=== PATIENT | male | born 1970 | race Caucasian/White ===

== ENCOUNTER → 2019-10-23 09:51 | Outpatient (BNVA) | payer OTHER, SELFPAY | PROVIDERS: Family Provider Emergency Medicine Emergency Medical Services; PCP Emergency Medicine Emergency Medical Services; Visit Provider Otolaryngology | DX: H69.83 Other specified disorders of Eustachian tube, bilateral (principal); H93.93 Unspecified disorder of ear, bilateral; H93.13 Tinnitus, bilateral; J34.2 Deviated nasal septum; J34.3 Hypertrophy of nasal turbinates | CPT/HCPCS: 96372; 99213; 99214; J3301 ==

== ENCOUNTER 2019-12-04 10:15 | Outpatient (CLI) | payer OTHER, SELFPAY ==
--- NOTE | 2019-12-04 10:43 | MR_ITS ---
WS: [id number] MRI BRAIN WITH HIGH-RESOLUTION IMAGING THROUGH THE INTERNAL AUDITORY CANALS WITHOUT AND WITH CONTRAST HISTORY: RIGHT EAR TINNITUS COMPARISON: None available. TECHNIQUE: Multiplanar, multisequence imaging is performed through the brain. Additional 3 mm imaging performed in multiple planes through the internal auditory canal. Postcontrast imaging with 17 ml's of Prohance. No acute intracranial hemorrhage, midline shift, edema or mass effect. No significant prior infarct or chronic white matter disease. No inferior displacement of cerebellar tonsils. No mass effect or abnormality at the cerebellopontine angle. Orbits and globes are negative. Ventricles and extra-axial spaces are normal. No inferior displacement of cerebellar tonsils. Clivus and pituitary gland are normal. Internal and external auditory canals: Unremarkable. Cranial nerves VII and VIII complexes: Unremarkable. No enhancement or mass. Cerebellopontine angles: Normal. Paranasal sinuses: Near complete fluid opacification of the RIGHT maxillary sinus. Mastoid air cells: Bilateral air cell effusions. Calvarium and scalp: Normal. Visualized [place] and dural venous sinuses demonstrate no abnormality. MR/MR iac's wo/w con* [id number] IMPRESSION: 1. Negative MRI internal auditory canals. No mass. 2. Mild, diffuse bilateral mastoid air cell effusions. 3. Near complete fluid opacification of the RIGHT maxillary sinus.
== END 2019-12-04 10:16 | disposition home or self-care (01) ==
LOC: RADWPI 10:21
PROVIDERS: Family Provider Emergency Medicine Emergency Medical Services; PCP Emergency Medicine Emergency Medical Services; Visit Provider Specialist
DX: H90.41 Sensorineural hearing loss, unilateral, right ear, with unrestricted hearing on the contralateral side (principal); H93.11 Tinnitus, right ear
CPT/HCPCS: 70553; A9579

== ENCOUNTER 2020-06-04 19:04 | Emergency (ER) | payer OTHER, SELFPAY ==
[2020-06-04 19:38] VITALS: BP 151/90; PULSE 86; RESP 22; TEMP 36.3; O2SAT 95; BMI 28.1
--- NOTE | 2020-06-04 20:01 | W.ED.ABDPA2 ---
HPI - Abdominal Pain General: Chief Complaint: Abdominal Pain Stated Complaint: lower abd pain Time Seen by Provider: 06/04/20 19:48 History of Present Illness: HPI narrative: 49-year-old male with left lower quadrant abdominal pain and vomiting. He said it started an hour or so after eating out at a restaurant. No diarrhea. No fever. He is not had pain like this before. No one else ate the food he ate. MD elicited complaint: abdominal pain Onset (ago): hour(s) Pain Consistency: constant Location: LLQ Severity: severe Quality: cramping and stabbing Radiation: none Migration to: no migration Exacerbating factors: movement Relieving factors: nothing Associated Symptoms: Reports nausea and vomiting; Denies chills, fever(s) and hematuria Review of Systems Const: Denies: fever(s) or chills ENMT: Denies: swelling of lips/tongue, epistaxis or sinus pain Card: Denies: chest pain, palpitations or irregular heart rhythm Resp: Denies: dyspnea, productive cough, non-productive cough or wheezing GI: Reports: nausea and vomiting : Denies: difficulty urinating or hematuria Musc: Denies: neck pain or back pain Skin/Breast: Denies: rash or erythema Neuro: Denies: headache(s), dizziness or vertigo Psych: Denies: anxiety PFSH ED PFSH: Family History Father Cancer Mother Cancer Social History Smoking and tobacco status: never smoked Alcohol intake: never Physical Exam Const: GENERAL APPEARANCE: well developed ORIENTATION/CONSCIOUSNESS: Yes oriented to person, Yes oriented to place and Yes oriented to time HENMT: COMMON NORMALS: normocephalic, external ears normal and Normal external nose present HEAD & SCALP: normocephalic FACE & SINUS: normal facial exam NOSE: Normal external nose present and No nasal discharge present EXTERNAL EAR: Yes external ears normal THROAT: posterior oropharynx normal; no peritonsillar mass Eye: COMMON NORMALS: Equal, round and reactive pupils present, EOMs intact bilaterally and conjunctivae normal EYELID: eyelids normal CONJUNCTIVA: Yes conjunctivae normal PUPIL: Yes Equal, round and reactive pupils present Neck/C-Spine: GENERAL: No tracheal deviation Chest: COMMONS NORMALS: normal inspection of the chest CHEST: No tenderness Resp: COMMON NORMALS: clear to auscultation bilaterally EFFORT & INSPECTION: No tachypneic, No respiratory distress, No retractions, No uses accessory muscles and No tracheal deviation AUSCULTATION: clear to auscultation bilaterally, no rhonchi, no wheezes and lung sounds not diminished Cardio: COMMON NORMALS: regular rate and regular rhythm RATE: regular rate RHYTHM: regular rhythm HEART SOUNDS: no murmurs PERIPHERAL PULSES: radial pulses present GI: INSPECTION: No abdominal distension AUSCULTATION: No Hyperactive bowel sounds present and No Hypoactive bowel sounds present PALPATION: Yes Tenderness to palpation present (GI) Details: LLQ, Yes Guarding due to palpation present (GI) and No Rigid due to palpation PERCUSSION: no dullness to percussion and no tympanic to percussion Neuro: SENSORIUM/ORIENTATION: Yes oriented to person, Yes oriented to place and Yes oriented to time Psych: COMMON NORMALS: mental status grossly normal Skin: COMMON NORMALS: no rashes or lesions noted GENERAL SKIN EXAM: no rashes or lesions noted Course Vital Signs: Vital signs: Vital Signs Temperature 97.4 F L 06/04/20 19:38 Pulse Rate 98 06/04/20 22:14 Respiratory Rate 18 06/04/20 22:14 Blood Pressure 157/99 06/04/20 22:14 Pulse Oximetry 99 06/04/20 22:14 MDM - Abdominal Pain MDM Narrative: Medical decision making narrative: 49-year-old male with left lower quadrant pain and vomiting. No fever. He has a mild leukocytosis. His bicarbonate level is 20. His creatinine is mildly elevated. He has been given IV fluids, pain medication, and antiemetics, as his vomiting was quite violent when he got here. He is feeling much improved following this. CT scan shows a 2 mm kidney stone, now in his bladder, with residual changes from the stone that was likely in his left ureter. With improvement in his symptoms, he will be allowed home. Lab Data: Attestation: I reviewed the patient's lab results. Labs: Lab Results 06/04/20 06/04/20 06/04/20 Range/Units 20:11 20:11 20:11 WBC 11.3 H (4.0-10.0) 10^3/ uL RBC 5.25 (4.1-5.3) 10^6/u L Hgb 15.7 (11.7-16.6) g/dL Hct 47.7 (42.0-52.0) % MCV 90.9 (80-94) fL MCH 29.9 (28.0-34.0) pg MCHC 32.9 (30.0-36.0) g/dL RDW 12.4 (12.1-15.1) % Plt Count 354 (130-400) 10^3/c mm MPV 10.0 (7.4-10.4) fL Neut % (Auto) 79.8 % Lymph % (Auto) 11.6 % [place] % (Auto) 7.4 % Eos % (Auto) 0.1 % Baso % (Auto) 0.5 % Neut # (Auto) 8.99 H (1.8-7.7) 10^3/u L Lymph # (Auto) 1.3 (0.8-4.8) 10^3/u L [place] # (Auto) 0.8 (0.2-0.9) 10^3/u L Eos # (Auto) 0.0 (0.0-0.8) 10^3/u L Baso # (Auto) 0.1 (0.0-0.1) 10^3/u L Nucleated RBC % (a uto) 0 % Nucleated RBCs # 0.0 /100WBC Sodium 139 (136-145) mmol/L Potassium 3.6 (3.5-5.1) mmol/L Chloride 103 (98-107) mmol/L Carbon Dioxide 20 L (22-29) mmol/L Anion Gap 19.6 H (5-19) BUN 12 (6-20) mg/dL Creatinine 1.4 H (0.7-1.2) mg/dL GFR Calculation 53.4 L (90-130) mL/min Glucose 152 H (65-115) mg/dL Calculated Osmolal ity 287 (285-295) mOsm/k g Lactate 3.4 H (0.5-2.2) mmol/L Calcium 9.1 (8.5-10.5) mg/dL Total Bilirubin 0.9 (0.15-1.2) mg/dL AST 16 (0-40) U/L ALT 13 (0-41) U/L Alkaline Phosphata se 92 (40-130) IU/L C-Reactive Protein 2.7 (0.0-4.9) mg/L Total Protein 7.6 (6.6-8.7) g/dL Albumin 4.7 (3.5-5.2) g/dL Globulin 2.9 (1.3-4.6) g/dL Lipase 18 (13-60) U/L Urine Color (Yellow) Urine Appearance (CLEAR) Urine pH (5-7) Ur Specific Gravit y (1.005-1.030) Urine Protein (Negative) Urine Glucose (UA) (Normal) Urine Ketones (Negative) Urine Blood (Negative) Urine Nitrate (Negative) Urine Bilirubin (NEGATIVE) Urine Urobilinogen (Negative) mg/dL Ur Leukocyte Carol ase (Negative) Urine RBC (0-2) /hpf Urine WBC (0-5) /hpf Ur Squamous Epith Cells (0-5) Amorphous Sediment Urine Bacteria (NONE) Hyaline Casts Urine Mucus 06/04/20 Range/Units 21:19 WBC (4.0-10.0) 10^3/ uL RBC (4.1-5.3) 10^6/u L Hgb (11.7-16.6) g/dL Hct (42.0-52.0) % MCV (80-94) fL MCH (28.0-34.0) pg MCHC (30.0-36.0) g/dL RDW (12.1-15.1) % Plt Count (130-400) 10^3/c mm MPV (7.4-10.4) fL Neut % (Auto) % Lymph % (Auto) % [place] % (Auto) % Eos % (Auto) % Baso % (Auto) % Neut # (Auto) (1.8-7.7) 10^3/u L Lymph # (Auto) (0.8-4.8) 10^3/u L [place] # (Auto) (0.2-0.9) 10^3/u L Eos # (Auto) (0.0-0.8) 10^3/u L Baso # (Auto) (0.0-0.1) 10^3/u L Nucleated RBC % (a uto) % Nucleated RBCs # /100WBC Sodium (136-145) mmol/L Potassium (3.5-5.1) mmol/L Chloride (98-107) mmol/L Carbon Dioxide (22-29) mmol/L Anion Gap (5-19) BUN (6-20) mg/dL Creatinine (0.7-1.2) mg/dL GFR Calculation (90-130) mL/min Glucose (65-115) mg/dL Calculated Osmolal ity (285-295) mOsm/k g Lactate (0.5-2.2) mmol/L Calcium (8.5-10.5) mg/dL Total Bilirubin (0.15-1.2) mg/dL AST (0-40) U/L ALT (0-41) U/L Alkaline Phosphata se (40-130) IU/L C-Reactive Protein (0.0-4.9) mg/L Total Protein (6.6-8.7) g/dL Albumin (3.5-5.2) g/dL Globulin (1.3-4.6) g/dL Lipase (13-60) U/L Urine Color Yellow (Yellow) Urine Appearance Clear (CLEAR) Urine pH 6.5 (5-7) Ur Specific Gravit y 1.005 (1.005-1.030) Urine Protein Trace (Negative) Urine Glucose (UA) Norm (Normal) Urine Ketones 1+ H (Negative) Urine Blood Trace H (Negative) Urine Nitrate Negative (Negative) Urine Bilirubin 1+ H (NEGATIVE) Urine Urobilinogen 4 H (Negative) mg/dL Ur Leukocyte Carol ase Negative (Negative) Urine RBC 0-4 H (0-2) /hpf Urine WBC 0-4 H (0-5) /hpf Ur Squamous Epith Cells 5-10 H (0-5) Amorphous Sediment Not Reportable Urine Bacteria t (NONE) Hyaline Casts 0-4 H Urine Mucus 3+ Discharge Plan Discharge Patient Disposition: Home Clinical Impression: Ureterolithiasis Condition: Stable Prescriptions: [place] 7.5-325 mg tablet 1 tab PO Q6H PRN (Reason: pain) Qty: 7 RF: 0 Zofran 4 mg tablet 4 mg PO Q6H PRN (Reason: nausea and vomiting) Qty: 7 RF: 0 No Action ibuprofen 800 mg tablet 800 mg PO DAILY PRNRF: 0 famotidine 20 mg tablet 40 mg PO DAILY RF: 0 cyclobenzaprine 10 mg tablet 10 mg PO ONCE PRN (Reason: muscle spasm) RF: 0 Discharge Orders: Discharge Order (Routine); Ordered 06/04/20 Ordered By: Adis Bauer Referrals: Yusef Young DO [Primary Care Provider] - Discharge Diet: Advance as tolerated Discharge Activity: Increase activity as tolerated Patient Instructions: Kidney Stones (ED), Renal Colic (ED) Activity Restrictions/Additional Instructions: You have passed your kidney stone in your bladder. Your symptoms will improve quickly. Return for fever, return of pain, vomiting liquids or medications, other concerning symptoms. Discharge Date/Time: 06/04/20 22:17 Coding Level of Care Code ED Risk Lead for Sebas Hancock
--- NOTE | 2020-06-04 20:03 | CTR_ITS ---
PROCEDURE INFORMATION: Exam: CT Abdomen And Pelvis With Contrast Exam date and time: 06/04/2020 8:10 PM Age: 49 years old Clinical indication: Abdominal pain; Generalized; Additional info: Llq abdominal pain TECHNIQUE: Imaging protocol: Computed tomography of the abdomen and pelvis with intravenous contrast. Radiation optimization: All CT scans at this facility use at least one of these dose optimization techniques: automated exposure control; mA and/or kV adjustment per patient size (includes targeted exams where dose is matched to clinical indication); or iterative reconstruction. Contrast material: OMNI 300; Contrast volume: 95 ml; Contrast route: INTRAVENOUS (IV); COMPARISON: No relevant prior studies available. RADIATION DOSE METRICS: Total DLP (mGy-cm): 896.21 FINDINGS: Liver: Rare tiny simple hepatic cysts. No visible hepatic mass. Gallbladder and bile ducts: Normal. No calcified stones. No ductal dilation. Pancreas: Normal. No ductal dilation. Spleen: Normal. No splenomegaly. Adrenals: Normal. No mass. Kidneys and ureters: Evidence of a recently passed left ureterovesical junction lithiasis now residing within the lumen of the bladder measuring under 2 mm. Mild left pelvicaliectasis and ureterectasis to the urinary bladder. No visible residual left ureterolithiasis. No visible residual nephrolithiasis left kidney. Right kidney unremarkable. Stomach and bowel: Diverticulosis coli primarily the sigmoid colon. No visible evidence for acute diverticulitis. Nonobstructive bowel pattern. No visible adynamic or reactive ileus. Small hiatal hernia. Third portion duodenal diverticulum measuring 40 mm. Rare small bowel diverticulum. Appendix: The appendix is visualized and appears noninflamed. Intraperitoneal space: Evidence of mild mesenteric lymphadenitis without panniculitis/mesenteritis. Vasculature: Unremarkable. No abdominal aortic aneurysm. Lymph nodes: Evidence of mild mesenteric lymphadenitis. Bladder: Tiny bladder stone from a recently passed left ureterovesical junction lithiasis. Reproductive: Evidence of a TUR of the prostate. Bones/joints: No visible evidence of active or acute osseous pathology. Soft tissues: Unremarkable. CT/CT abdomen pelvis w con* [id number] IMPRESSION: 1. Evidence of a recently passed left ureterovesical junction lithiasis now residing within the lumen of the bladder measuring under 2 mm. Mild left pelvicaliectasis and ureterectasis to the urinary bladder. No visible residual left ureterolithiasis. 2. Diverticulosis coli without evidence for diverticulitis. 3. Duodenal diverticulum. 4. Rare small bowel diverticulum. 5. Evidence of mild mesenteric lymphadenitis without panniculitis/mesenteritis. Radiation Dose CTDIVOL = (mGy): DLP = 896.21 (mGy-cm)
[2020-06-04] MEDS: sodium chloride 0.9% 1,000 ML 999 ML IV (20:13)
[2020-06-04 20:14] LABS: Basophils # 0.1 10^3/uL (0.0-0.1); Basophils % 0.5 %; Eosinophils % 0.1 %; Hematocrit 47.7 % (42.0-52.0); Hemoglobin 15.7 g/dL (11.7-16.6); Lymphocytes # 1.3 10^3/uL (0.8-4.8); Lymphocytes % 11.6 %; Mean Corpuscular HGB Conc 32.9 g/dL (30.0-36.0); Mean Corpuscular Hemoglobin 29.9 pg (28.0-34.0); Mean Corpuscular Volume 90.9 fL (80-94); Monocytes # 0.8 10^3/uL (0.2-0.9); Monocytes % 7.4 %; Neutrophils # 8.99 10^3/uL (1.8-7.7); Neutrophils % 79.8 %; Nucleated Red Blood Cells % 0 %; Platelet Count 354 10^3/cmm (130-400); Red Blood Count 5.25 10^6/uL (4.1-5.3); Red Cell Distribution Width 12.4 % (12.1-15.1); White Blood Count 11.3 10^3/uL (4.0-10.0)
[2020-06-04] MEDS: ondansetron 2 mg/ML SDV 2 mL 4 MG IVP (20:26)
[2020-06-04 20:29] VITALS: RESP 19; O2SAT 100
[2020-06-04] MEDS: HYDROmorphone 1 mg/mL INJ 1 mL IVP (20:29)
[2020-06-04] MEDS: haloperidol inj 5 mg/mL INJ 1 mL 3 MG IVP (20:32)
[2020-06-04 20:37] LABS: Alanine Aminotransferase 13 U/L (0-41); Albumin Level 4.7 g/dL (3.5-5.2); Alkaline Phosphatase 92 IU/L (40-130); Aspartate Amino Transferase 16 U/L (0-40); Blood Urea Nitrogen 12 mg/dL (6-20); C Reactive Protein 2.7 mg/L (0.0-4.9); Calcium 9.1 mg/dL (8.5-10.5); Carbon Dioxide 20 mmol/L (22-29); Chloride 103 mmol/L (98-107); Globulin 2.9 g/dL (1.3-4.6); Glomerular Filtration Rate 53.4 mL/min (90-130); Glucose 152 mg/dL (65-115); Lipase 18 U/L (13-60); Osmolality Calculated 287 mOsm/kg (285-295); Sodium 139 mmol/L (136-145); Total Bilirubin 0.9 mg/dL (0.15-1.2); Total Protein 7.6 g/dL (6.6-8.7)
[2020-06-04 20:38] LABS: Lactate (Lactic Acid level) 3.4 mmol/L (0.5-2.2)
[2020-06-04 20:45] LABS: Anion Gap 19.6 (5-19); Potassium 3.6 mmol/L (3.5-5.1)
[2020-06-04] MEDS: iohexol 300 mg/mL 100 mL Btl IV (20:49)
[2020-06-04 21:14] VITALS: BP 161/91; PULSE 96; RESP 18; O2SAT 99
[2020-06-04 21:49] LABS: Add Urine Microscopic? YES; Bilirubin Urine 1+ (NEGATIVE); Blood Urine Trace (Negative); Glucose Urine UA Norm (Normal); Ketones Urine 1+ (Negative); Leukocyte Esterase Urine Negative (Negative); Nitrate Urine Negative (Negative); Protein Urine Trace (Negative); Specific Gravity, Urine 1.005 (1.005-1.030); Urine Appearance Clear (CLEAR); Urine Color Yellow (Yellow); Urobilinogen Urine 4 mg/dL (Negative); pH Urine 6.5 (5-7)
[2020-06-04 21:57] LABS: Bacteria Urine t; RBC Urine 0-4 /hpf (0-2); WBC Urine 0-4 /hpf (0-5)
[2020-06-04 21:58] LABS: Add Urine Culture? No; Hyaline Casts Urine 0-4; Mucus Urine 3+
[2020-06-04 22:14] VITALS: BP 157/99; PULSE 98; RESP 18; O2SAT 99
== END 2020-06-04 22:17 | disposition home or self-care (01) ==
PROVIDERS: Emergency Provider Emergency Medicine; PCP Emergency Medicine Emergency Medical Services
DX: N20.1 Calculus of ureter (principal)
CPT/HCPCS: 12345; 74177; 80053; 81001; 83605; 83690; 85025; 86140; 96361; 96374; 96375; 99282; 99284; J1170; J1630; J2405; J7030; Q9967

== ENCOUNTER 2020-09-20 09:13 | Emergency (ER) | payer OTHER, SELFPAY ==
[2020-09-20 09:24] VITALS: BP 139/102; PULSE 78; RESP 16; TEMP 36.7; O2SAT 97; BMI 27.6
--- NOTE | 2020-09-20 09:35 | ED_ITS ---
HPI - Abdominal Pain General: Chief Complaint: Abdominal Pain Stated Complaint: ABD pain Time Seen by Provider: 09/20/20 09:30 History of Present Illness: HPI narrative: Patient urinated 5 times last night he said is unusual for him. He is having pain down above his bladder. No nausea vomiting MD elicited complaint: abdominal pain Pertinent past history: constipation and gastritis Onset (ago): hour(s) Pain Consistency: intermittent Location: Groin Severity: mild Quality: aching Radiation: none Migration to: no migration Exacerbating factors: nothing Relieving factors: nothing Associated Symptoms: Reports no associated symptoms; Denies chills, fever(s), nausea and vomiting Review of Systems Const: Denies: fever(s), chills or body aches Eyes: Denies: change in vision or blurry vision ENMT: Denies: throat pain or nasal congestion Card: Denies: chest pain or dyspnea on exertion Resp: Denies: dyspnea, productive cough or non-productive cough GI: Reports: abdominal pain; Denies: nausea or vomiting : Reports: urinary frequency and urinary urgency; Denies: difficulty urinating Musc: Denies: extremity pain Skin/Breast: Denies: rash Neuro: Denies: headache(s) Psych: Denies: anxiety or depression Parmjit/Lymph: Denies: easy bruising PFSH ED PFSH: Family History Father Cancer Mother Cancer Social History Smoking and tobacco status: never smoked Alcohol intake: never Physical Exam Const: COMMON NORMALS: no acute distress, average body habitus and patient oriented x3 HENMT: COMMON NORMALS: normocephalic HEAD & SCALP: normal to inspection and normocephalic FACE & SINUS: normal facial exam Eye: COMMON NORMALS: conjunctivae normal GENERAL EYE: appearance normal, both eyes and all related structures CONJUNCTIVA: Yes conjunctivae normal Neck/C-Spine: COMMON NORMALS: no JVD Chest: COMMONS NORMALS: normal inspection of the chest Resp: COMMON NORMALS: normal respiratory effort and clear to auscultation bilaterally AUSCULTATION: clear to auscultation bilaterally Cardio: COMMON NORMALS: no JVD, regular rate and regular rhythm RATE: regular rate RHYTHM: regular rhythm GI: COMMON NORMALS: Normal to inspection, nondistended, normoactive bowel sounds present PALPATION: Yes Tenderness to palpation present (GI) Details: other (Above bladder) Extremity: COMMON NORMALS: normal to inspection and full ROM Neuro: COMMON NORMALS: patient oriented x3 Course Vital Signs: Vital signs: Vital Signs Temperature 98.0 F 09/20/20 09:24 Pulse Rate 78 09/20/20 09:24 Respiratory Rate 16 09/20/20 09:24 Blood Pressure 139/102 09/20/20 09:24 Pulse Oximetry 97 09/20/20 09:24 Discharge Plan Discharge Prescriptions: No Action ibuprofen 800 mg tablet 800 mg PO DAILY PRNRF: 0 famotidine 20 mg tablet 40 mg PO DAILY RF: 0 cyclobenzaprine 10 mg tablet 10 mg PO ONCE PRN (Reason: muscle spasm) RF: 0 [place] 7.5-325 mg tablet 1 tab PO Q6H PRN (Reason: pain) Qty: 7 RF: 0 Zofran 4 mg tablet 4 mg PO Q6H PRN (Reason: nausea and vomiting) Qty: 7 RF: 0 Coding Level of Care Code ED Inclusion Specialist for Chg Karissa
--- NOTE | 2020-09-20 10:04 | XR_ITS ---
WS: [id number] ABDOMEN: SUPINE FILM HISTORY: lower abd pain COMPARISON: 06/04/2020 Normal bowel gas pattern. Right kidney: No renal or ureteral stone identified. Left kidney: No renal or ureteral stone identified. XR/XR KUB portable [id number] IMPRESSION: No renal or ureteral calcifications identified.
[2020-09-20 10:21] LABS: Add Urine Microscopic? NO
[2020-09-20 10:28] LABS: Urine Appearance Clear (CLEAR); Urine Color Yellow (Yellow)
[2020-09-20 10:29] LABS: Bilirubin Urine Neg (Negative); Blood Urine Neg (Negative); Glucose Urine UA Norm (Normal); Ketones Urine Negative (Negative); Leukocyte Esterase Urine Negative (Negative); Nitrate Urine Negative (Negative); Protein Urine Neg (Negative); Specific Gravity, Urine 1.005 (1.005-1.030); Urobilinogen Urine Norm (Negative); pH Urine 6.5 (5-7)
[2020-09-20 10:40] LABS: Basophils % 0.3 %; Eosinophils % 0.4 %; Hematocrit 47.5 % (42.0-52.0); Hemoglobin 16.4 g/dL (11.7-16.6); Lymphocytes # 1.1 10^3/uL (0.8-4.8); Lymphocytes % 9.7 %; Mean Corpuscular HGB Conc 34.5 g/dL (30.0-36.0); Mean Corpuscular Hemoglobin 30.9 pg (28.0-34.0); Mean Corpuscular Volume 89.5 fL (80-94); Mean Platelet Volume 9.8 fL (7.4-10.4); Monocytes % 9.4 %; Neutrophils # 8.65 10^3/uL (1.8-7.7); Neutrophils % 79.9 %; Nucleated Red Blood Cells % 0 %; Platelet Count 300 10^3/cmm (130-400); Red Blood Count 5.31 10^6/uL (4.1-5.3); Red Cell Distribution Width 12.1 % (12.1-15.1); White Blood Count 10.8 10^3/uL (4.0-10.0)
[2020-09-20 10:56] LABS: Alanine Aminotransferase 18 U/L (0-41); Albumin Level 4.1 g/dL (3.5-5.2); Alkaline Phosphatase 128 IU/L (40-130); Anion Gap 14.1 (5-19); Aspartate Amino Transferase 16 U/L (0-40); Blood Urea Nitrogen 10 mg/dL (6-20); Calcium 9.5 mg/dL (8.5-10.5); Carbon Dioxide 25 mmol/L (22-29); Chloride 103 mmol/L (98-107); Globulin 2.8 g/dL (1.3-4.6); Glomerular Filtration Rate 70.3 mL/min (90-130); Glucose 95 mg/dL (65-115); Lipase 19 U/L (13-60); Osmolality Calculated 285 mOsm/kg (285-295); Potassium 4.1 mmol/L (3.5-5.1); Sodium 138 mmol/L (136-145); Total Protein 6.9 g/dL (6.6-8.7)
[2020-09-20 11:21] VITALS: BP 122/92; PULSE 60; RESP 18; O2SAT 96
== END 2020-09-20 11:22 | disposition home or self-care (01) ==
PROVIDERS: Emergency Provider Nurse Practitioner Family; PCP Emergency Medicine Emergency Medical Services
DX: R10.9 Unspecified abdominal pain (principal)
CPT/HCPCS: 12345; 74018; 80053; 81003; 83690; 85025; 99283

== ENCOUNTER → 2020-12-10 11:18 | Outpatient (BNVA) | payer OTHER, SELFPAY | PROVIDERS: PCP Emergency Medicine Emergency Medical Services; Visit Provider Surgery | DX: K59.00 Constipation, unspecified (principal) | CPT/HCPCS: 87635 ==

== ENCOUNTER 2020-12-15 07:20 | Day surgery (SDC) | payer OTHER, SELFPAY ==
[2020-12-13 14:21] VITALS: BMI 27.6
--- NOTE | 2020-12-15 07:29 | ANES.PREANE2 ---
Pre-Anesthetic Assessment Pre-Anesthetic Assessment: Height/Weight: Height 1.73 m Weight 82.554 kg Preop Diagnosis: Constipation Proposed Procedure: Operation Date: 12/15/20 08:30 Proposed Procedures p Colonoscopy 77441 K59.00(Not Applicable) - Ziyad Leach MD Familial anesthetic complications: None Was Beta Norman taken within 24 hours: N/A Last intake: NPO > 8 hrs Social: Social History: No alcohol and No tobacco Exam: Pre-Anes Outpt Exam: alert, oriented x 3, clear to auscultation bilaterally and regular rate & rhythm Airway: Cervical ROM: WNL MP: 2 Dentition: Full GI: GI: GERD Musc/skel: Musc/skel: Lower Back Pain Anesthetic Plan: ASA status: 1 Anesthesia: MAC Risk of > 500 ml blood loss (7ml/kg in children): No PFSH Anesthesia PFSH: Family History Father Cancer Mother Cancer Social History Smoking and tobacco status: never smoked Alcohol intake: never Data Anesthesia Cardiac Studies: No Data to Display
[2020-12-15 08:06] VITALS: BP 143/98; PULSE 70; RESP 18; TEMP 36.6; O2SAT 100
--- NOTE | 2020-12-15 08:07 | W.PM.OPSUD ---
Surgery/Procedure H&P Update DATE OF PROCEDURE: December 15, 2020 DATE H&P PERFORMED: 11/17/20 H&P UPDATE INFORMATION: I have reviewed H&P completed within last 30 days, I have examined patient prior to procedure and No changes to prior documentation PREOP DIAGNOSIS: Screening colonoscopy PRIMARY INDICATION FOR PROCEDURE: The same PLANNED PROCEDURE: Operation Date: 12/15/20 08:30 Proposed Procedures p Colonoscopy 31896 K59.00(Not Applicable) - Ziyad Leach MD
[2020-12-15] MEDS: sodium chloride 0.9% 1,000 ML 30 ML IV (08:18)
[2020-12-15 08:51] VITALS: BP 131/93; PULSE 95; RESP 16; TEMP 36.3; O2SAT 96
--- NOTE | 2020-12-15 08:55 | ANE.PACU2 ---
Inpatient post-anesthesia follow up: Airway intact: Yes Vital signs: Temperature 98 F Pulse Rate 70 Respiratory Rate 18 Blood Pressure 143/98 Pulse Oximetry 100 Oxygen Delivery Me thod Room Air Oxygen Flow Rate Fraction of Inspir ed Oxygen Hydration adequate: Yes Nausea and vomiting: No Pain level: 1 Mental status: Baseline
[2020-12-15 09:10] VITALS: BP 130/94; PULSE 75; RESP 16; O2SAT 97
--- NOTE | 2020-12-15 13:30 | ANE.PACU2 ---
Inpatient post-anesthesia follow up: Airway intact: Yes Vital signs: Temperature 97.3 F Pulse Rate 75 Respiratory Rate 16 Blood Pressure 130/94 Pulse Oximetry 97 Oxygen Delivery Me thod Room Air Oxygen Flow Rate Fraction of Inspir ed Oxygen Hydration adequate: Yes Nausea and vomiting: No Pain level: 1 Mental status: Baseline
== END 2020-12-15 09:25 | disposition home or self-care (01) ==
PROVIDERS: PCP Emergency Medicine Emergency Medical Services; Visit Provider Surgery
PROC: 0DJD8ZZ Inspection of Lower Intestinal Tract, Via Natural or Artificial Opening Endoscopic (ICD-10-PCS; CPT 45378; principal; 2020-12-15 08:30)
DX: Z12.11 Encounter for screening for malignant neoplasm of colon (principal); K63.5 Polyp of colon; K21.9 Gastro-esophageal reflux disease without esophagitis
CPT/HCPCS: 45385; 88305; 96360; J2704; J7030

== ENCOUNTER → 2021-01-13 10:35 | Outpatient (BNVA) | payer OTHER, SELFPAY | PROVIDERS: PCP Emergency Medicine Emergency Medical Services; Visit Provider Surgery | DX: K42.9 Umbilical hernia without obstruction or gangrene (principal) | CPT/HCPCS: 87635 ==

== ENCOUNTER 2021-01-18 06:20 | Day surgery (SDC) | payer OTHER, SELFPAY ==
[2021-01-17 10:56] VITALS: BMI 27.6
[2021-01-18] VITALS (9 sets, daily range): BP systolic 130–156; BP diastolic 83–101; PULSE 69–78; RESP 10–19; TEMP 36.2–37.1; O2SAT 92–99
[2021-01-18] MEDS: acetaminophen 1,000 MG/100 ML PIGGYBACK 400 MG IV (07:00)
[2021-01-18] MEDS: sodium chloride 0.9% 1,000 ML 30 ML IV (07:00)
--- NOTE | 2021-01-18 07:29 | ANES.PREANE2 ---
Pre-Anesthetic Assessment Pre-Anesthetic Assessment: Height/Weight: Height 1.73 m Weight 82.554 kg Temp Pulse Resp BP Pulse Ox 98.7 F 74 18 147/92 97 01/18/21 07:22 01/18/21 07:22 01/18/21 07:22 01/18/21 07:22 01/18/21 07:22 Preop Diagnosis: Umbilical hernia Proposed Procedure: Operation Date: 01/18/21 07:55 Proposed Procedures p Umbilical Hernia Repair w/ Mesh 46893 K42.9(Not Applicable) - Ziyad Leach MD Familial anesthetic complications: none Was Beta Norman taken within 24 hours: N/A Was Clonidine taken within 24 hours: N/A Last intake: Intake Last Liquid Date 01/17/21 Last Liquid Time 21:00 Last Solid Date 01/17/21 Last Solid Time 21:00 Social: Social History: No alcohol and No tobacco Exam: Pre-Anes Outpt Exam: alert, oriented x 3, clear to auscultation bilaterally and regular rate & rhythm Airway: Cervical ROM: WNL MP: 2 Dentition: Full GI: GI: GERD Anesthetic Plan: ASA status: 2 Anesthesia: General Risk of > 500 ml blood loss (7ml/kg in children): No Meds/Allergies Current Medications: Current Medications Generic Name Dose Route Start Last Admin Trade Name Freq PRN Reason Stop Dose Admin Sodium Chloride 1,000 mls @ 30 ml s/hr 01/18/21 07:00 01/18/21 07:00 Sodium Chloride 0.9% IV 01/19/21 06:59 30 mls/hr .Q24H HUBER Administration PFSH Anesthesia PFSH: Medical History Colon polyp Constipation Family History Father Cancer Mother Cancer Social History Smoking and tobacco status: never smoked Alcohol intake: never Data Anesthesia Cardiac Studies: No Data to Display
--- NOTE | 2021-01-18 08:07 | W.PM.OPSUD ---
Surgery/Procedure H&P Update DATE OF PROCEDURE: January 18, 2021 DATE H&P PERFORMED: 01/06/21 H&P UPDATE INFORMATION: I have reviewed H&P completed within last 30 days, I have examined patient prior to procedure and No changes to prior documentation PREOP DIAGNOSIS: Umbilical hernia PRIMARY INDICATION FOR PROCEDURE: THE SAME PLANNED PROCEDURE: Operation Date: 01/18/21 07:55 Proposed Procedures p Umbilical Hernia Repair w/ Mesh 39965 K42.9(Not Applicable) - Ziayd Leach MD
--- NOTE | 2021-01-18 09:09 | SUR.OPER ---
LATE TO ROOM DUE TO CLEANED ROOM, SET UP ANESTHESIA EQUIPMENT, TOOK SPECIMEN
--- NOTE | 2021-01-18 09:59 | PM.OP ---
Operative Report Date of procedure: January 18, 2021 Pre-op Diagnosis: Umbilical hernia Post-op diagnosis: same Post-op Diagnosis: UMBLICAL HERNIA Post-op Findings: Fascial defect about 2 inches in diameter Procedure Done: Open umbilical hernia repair with Polypropylene mesh placement Onlay technique Implants: Polypropylene mesh onlay technique Specimens removed/disposition: Hernial sac and contents Surgeon: Ziyad Leach Contact Printer Dry Film: Surgical techBety Cole and medical student Celia Circulating nurse Mireya Anesthesia: General (GETA TRAILER BODY ASSEMBLER Lili) Estimated blood loss (mL): 10 Complications: No immediate complications Condition: stable Disposition: same day Brief History: This is a pleasant 51 years old gentleman with symptomatic periumbilical hernia.Full H&P per chart and informed consent Procedure: Patient was identified in holding area and the site of the hernia was marked by me ,Patient was brought then to the operating room, general endotracheal anesthesia was administered by the anesthesia provider.prophylactic IV antibiotics were given per protocol Time-out was done verifying the patient's name/date of /planned procedure and destination after the procedure, all were in agreement.SCDs confirmed to be functioning, preoperative antibiotics administered per protocol, and beta trixie protocol was confirmed. Prep and drape of the abdomen was done under the usual sterile technique. I started by infra-aumbilical skin incision, I was able to identify the chronically incarcerated umbilical hernia, dissection was carried all the way down to the fascia, hernia sac was then opened and the sac was excised in addition to excess omental tissues.Tissues excised sent for permanent pathology.Viable bowel were appreciated. I was able to free the overlying fat on top of the fascia, facilitate primary closure At that point the fascial defect was about 2 inches in diameter, after freeing all the adhesions, under direct visualization I was able to use #1 PDS to repair the defect primarily, as an interrupted horizontal mattress sutures, thorough irrigation of the wound was then achieved and hemostasis. Followed by interrupted PDS sutures [place] and thorough irrigation was achieved Followed by appropriate hemostasis. Onlay polypropylene mesh was placed and stitched to underlying fascia using 2-0 silk sutures in an interrupted fashion 2-0 Vicryl was used for closure followed by deep dermal interrupted stitches, followed by 3-0 Vicryl, then 4-0 Monocryl was used for subcuticular closure of the skin incision. Lidocaine 2% was used for local infiltration to help postoperative pain Surgical glue was then applied Counts of sponges, [place] and instruments were completed at the end of the procedure. Patient tolerated the procedure well and was taken to the recovery area in stable condition I was present for the whole entire procedure
[2021-01-18] MEDS: lidocaine 2% INJ 20 mL INJECTION (10:02)
[2021-01-18] MEDS: ondansetron 2 mg/ML SDV 2 mL 4 MG IVP ×2 (10:38→10:43)
[2021-01-18] MEDS: HYDROcodone-acetaminophen 5-325 mg Tablet 1 TAB PO (11:26)
--- NOTE | 2021-01-18 12:23 | ANE.PACU2 ---
Inpatient post-anesthesia follow up: Airway intact: Yes Vital signs: Temperature 97.8 F Pulse Rate 78 Respiratory Rate 18 Blood Pressure 147/83 Pulse Oximetry 96 Oxygen Delivery Me thod Room Air Oxygen Flow Rate 8 Fraction of Inspir ed Oxygen Hydration adequate: Yes Nausea and vomiting: No Pain level: 2 Mental status: Baseline
== END 2021-01-18 11:46 | disposition home or self-care (01) ==
PROVIDERS: PCP Emergency Medicine Emergency Medical Services; Visit Provider Surgery
PROC: (CPT 49585; principal; 2021-01-18 07:45)
DX: K42.9 Umbilical hernia without obstruction or gangrene (principal); K21.9 Gastro-esophageal reflux disease without esophagitis
CPT/HCPCS: 49585; 88302; 96365; J0690; J1100; J2250; J2405; J2704; J2710; J3010; J3490; J7030

== ENCOUNTER 2021-02-07 20:00 | Outpatient (CLI) | payer OTHER, SELFPAY | END 2021-02-07 20:01 | disposition home or self-care (01) | LOC: SLEEP 02-08 09:36 | PROVIDERS: PCP Emergency Medicine Emergency Medical Services; Visit Provider Emergency Medicine Emergency Medical Services | DX: G47.30 Sleep apnea, unspecified (principal) | CPT/HCPCS: 95810 ==

== ENCOUNTER 2021-02-15 10:09 | Inpatient (IN) | payer OTHER, SELFPAY ==
[2021-02-15] VITALS (7 sets, daily range): BP systolic 129–144; BP diastolic 76–88; PULSE 60–81; RESP 15–20; TEMP 36.9–37.4; O2SAT 94–98; BMI 27.5
--- NOTE | 2021-02-15 10:37 | CT_ITS ---
WS: [id number] CT ABDOMEN PELVIS TECHNIQUE: Contrast-enhanced CT of the abdomen and pelvis with coronal and sagittal reformatted image s. CLINICAL INFORMATION: abd pain COMPARISON: January 19, 2021 DLP: 1629.[address] scans at [facility] use at least one of these dose optimization techniques: automat ed exposure control; mA and/or kV adjustment per patient size (includes targeted exams where dose is matched to clinical indication); or iterative reconstruction. FINDINGS: Inflammatory stranding and edema involving the sigmoid colon consistent with acute diverticulitis. Th is is new since the recent CT February 08, 2021. Small diverticular abscess with peripheral enhancement measuring 1.6 x 1.2 x 1.6 CM. Recent appearing fat-containing umbilical hernia repair with postoperative changes involving the vent ral abdominal wall subcutaneous soft tissues. Low-attenuation postoperative fluid collection likely p ostoperative seroma measuring 7.8 x 2.3 x 4.1 cm this is slightly smaller compared to the recent CT A pril 2020. No herniated bowel. Lung bases are well aerated. A few small hepatic cyst. Normal gallbladder. Normal portal vein and spl enic vein. Normal spleen. Mild fatty atrophy of the pancreas. Normal GE junction. Small esophageal hi atal hernia. Intraluminal duodenal lipoma second portion duodenum unchanged from the prior studies. D uodenal diverticulum involving the third portion the duodenum measuring 3.5 CM. This is unchanged fro m the prior studies. Adrenal glands are normal. Normal renal parenchymal enhancement. No hydronephrosis. Normal caliber abdominal aorta. Prostate calcification with prior TURP. No abdomin al or pelvic lymphadenopathy. No inguinal lymphadenopathy. Small fat-containing inguinal hernias. CT/CT abdomen pelvis w con* [id number] IMPRESSION: 1. Acute diverticulitis with a small diverticular abscess measuring 1.6 x 1.2 x 1.6 CM. This is too small for percutaneous drainage. Diverticulitis is new si nce February 08, 2021. 2. Recent postoperative changes umbilical hernia repair with low-attenuation c ollection, likely seroma, measuring 7.8 x 2.3 x 4.1cm slightly smaller compared to February 08, 2021. 3. No other significant changes Notified Dinesh Emmanuel DO at 02/15/2021 11:33 AM.
--- NOTE | 2021-02-15 10:46 | W.ED.ABDPA2 ---
HPI - Abdominal Pain General: Chief Complaint: Abdominal Pain Stated Complaint: LOW AB PAIN, EXCESSIVE URINATION, WEAKNESS Time Seen by Provider: 02/15/21 10:15 History of Present Illness: HPI narrative: 50-year-old male presents emergency room with abdominal pain and diarrhea. He was seen by Dr. Ramirez recently and had a follow-up for some swelling around the umbilical hernia surgical site. [facility] showed a seroma in the area of the incision and umbilical hernia repair per the notes from Dr. Leach. He denies any fever sweats or chills. He denies any edition urinary urgency or frequency no hematuria. Patient had a colonoscopy on December 15 of this year at that time there were polyps removed but in reviewing the report there is no comment on any diverticulosis. MD elicited complaint: abdominal pain Onset (ago): day(s) Pain Consistency: constant Location: Suprapubic Severity: mild Quality: cramping Radiation: none Migration to: no migration Exacerbating factors: nothing Relieving factors: nothing Associated Symptoms: Denies anorexia, belching, bloating, change in bowel habits, change in stool character, chills, coffee ground emesis, constipation, GI cramping, diarrhea, dyspepsia, dysuria, excessive flatus, fever(s), heartburn, hematochezia, hematuria, hematemesis, fecal incontinence, loose stools, melena, nausea, poor appetite, syncope and vomiting Review of Systems Const: Denies: fever(s) or chills ENMT: Denies: throat pain, ear or mastoid pain, nasal discharge or nasal congestion Card: Denies: syncope Resp: Denies: dyspnea, productive cough or non-productive cough GI: Denies: nausea, vomiting, hematemesis, coffee ground emesis, heartburn, diarrhea, constipation, bloating, GI cramping, belching, excessive flatus, fecal incontinence, change in bowel habits, change in stool character, hematochezia or melena : Denies: dysuria or hematuria Skin/Breast: Denies: rash or pruritus PFSH ED PFSH: Medical History Colon polyp Constipation Umbilical hernia Family History Father Cancer Mother Cancer Social History Smoking and tobacco status: never smoked Alcohol intake: never Physical Exam Const: COMMON NORMALS: no acute distress GENERAL APPEARANCE: cooperative and comfortable ORIENTATION/CONSCIOUSNESS: Yes awake, Yes oriented to person, Yes oriented to place and Yes oriented to time HENMT: COMMON NORMALS: normocephalic, atraumatic and hearing grossly normal bilaterally HEAD & SCALP: normocephalic and atraumatic Neck/C-Spine: COMMON NORMALS: no JVD Resp: COMMON NORMALS: normal respiratory effort, No retractions, No use of accessory muscles and clear to auscultation bilaterally AUSCULTATION: clear to auscultation bilaterally Cardio: COMMON NORMALS: no JVD, regular rate, regular rhythm and No murmurs present (Cardio) RATE: regular rate RHYTHM: regular rhythm GI: COMMON NORMALS: Soft to palpation and No hepatosplenomegaly present AUSCULTATION: Yes normoactive bowel sounds PALPATION: Yes Soft to palpation, No Tenderness to palpation present (GI), No Guarding due to palpation present (GI) and Yes No hepatosplenomegaly present OTHER: Recent infraumbilical incision semilunar in shape is fullness to palpation consistent with the seroma Dr. Leach noted in his office notes there is no drainage is no erythema no induration no sign of infection Extremity: COMMON NORMALS: normal to inspection, capillary refill normal, no clubbing, cyanosis or edema, no calf tenderness and no pedal edema Neuro: SENSORIUM/ORIENTATION: Yes oriented to person, Yes oriented to place and Yes oriented to time Skin: COMMON NORMALS: no rashes or lesions noted GENERAL SKIN EXAM: no rashes or lesions noted Course Vital Signs: Vital signs: Vital Signs Temperature 98.4 F 02/15/21 10:16 Pulse Rate 81 02/15/21 11:16 Respiratory Rate 16 02/15/21 11:16 Blood Pressure 135/87 02/15/21 11:16 Pulse Oximetry 94 02/15/21 11:16 MDM - Abdominal Pain MDM Narrative: Medical decision making narrative: Discussed with Dr. Ramirez will admit he asked that we add Flagyl to Zosyn that we had already given. Keep patient on sips and chips and IV fluids. Admit to his services. Lab Data: Labs: Lab Results 02/15/21 02/15/21 02/15/21 Range/Units 10:32 10:32 11:35 WBC 8.7 (4.0-10.0) 10^3/ uL RBC 4.80 (4.1-5.3) 10^6/u L Hgb 14.3 (11.7-16.6) g/dL Hct 43.0 (42.0-52.0) % MCV 89.6 (80-94) fL MCH 29.8 (28.0-34.0) pg MCHC 33.3 (30.0-36.0) g/dL RDW 11.9 L (12.1-15.1) % Plt Count 291 (130-400) 10^3/c mm MPV 9.5 (7.4-10.4) fL Neut % (Auto) 77.1 % Lymph % (Auto) 11.9 % [place] % (Auto) 8.4 % Eos % (Auto) 1.8 % Baso % (Auto) 0.6 % Neut # (Auto) 6.68 (1.8-7.7) 10^3/u L Lymph # (Auto) 1.0 (0.8-4.8) 10^3/u L [place] # (Auto) 0.7 (0.2-0.9) 10^3/u L Eos # (Auto) 0.2 (0.0-0.8) 10^3/u L Baso # (Auto) 0.1 (0.0-0.1) 10^3/u L Nucleated RBC % (a uto) 0 % Nucleated RBCs # 0.0 /100WBC Sodium 140 (136-145) mmol/L Potassium 3.9 (3.5-5.1) mmol/L Chloride 105 (98-107) mmol/L Carbon Dioxide 25 (22-29) mmol/L Anion Gap 13.9 (5-19) BUN 12 (6-20) mg/dL Creatinine 1.0 (0.7-1.2) mg/dL GFR Calculation 78.5 L (90-130) mL/min Glucose 87 (65-115) mg/dL Calculated Osmolal ity 289 (285-295) mOsm/k g Calcium 8.7 (8.5-10.5) mg/dL Total Bilirubin 0.8 (0.15-1.2) mg/dL AST 10 (0-40) U/L ALT 10 (0-41) U/L Alkaline Phosphata se 157 H (40-130) IU/L Total Protein 6.6 (6.6-8.7) g/dL Albumin 3.9 (3.5-5.2) g/dL Globulin 2.7 (1.3-4.6) g/dL Urine Color Yellow (Yellow) Urine Appearance Clear (CLEAR) Urine pH 6.5 (5-7) Ur Specific Gravit y 1.010 (1.005-1.030) Urine Protein Neg (Negative) Urine Glucose (UA) Norm (Normal) Urine Ketones Negative (Negative) Urine Blood Neg (Negative) Urine Nitrate Negative (Negative) Urine Bilirubin Neg (Negative) Urine Urobilinogen Norm (Negative) mg/dL Ur Leukocyte Carol ase Negative (Negative) Discharge Plan Discharge Patient Disposition: Placed in Observation Clinical Impression: Diverticulitis, Diverticular disease of intestine with perforation and abscess Coding Level of Care Code ED Anesthesiology Fellow for [facility] Exam Comprehensive
[2021-02-15 10:51] LABS: Basophils # 0.1 10^3/uL (0.0-0.1); Basophils % 0.6 %; Eosinophils # 0.2 10^3/uL (0.0-0.8); Eosinophils % 1.8 %; Hemoglobin 14.3 g/dL (11.7-16.6); Lymphocytes % 11.9 %; Mean Corpuscular HGB Conc 33.3 g/dL (30.0-36.0); Mean Corpuscular Hemoglobin 29.8 pg (28.0-34.0); Mean Corpuscular Volume 89.6 fL (80-94); Mean Platelet Volume 9.5 fL (7.4-10.4); Monocytes # 0.7 10^3/uL (0.2-0.9); Monocytes % 8.4 %; Neutrophils # 6.68 10^3/uL (1.8-7.7); Neutrophils % 77.1 %; Nucleated Red Blood Cells % 0 %; Platelet Count 291 10^3/cmm (130-400); Red Cell Distribution Width 11.9 % (12.1-15.1); White Blood Count 8.7 10^3/uL (4.0-10.0)
[2021-02-15] MEDS: iohexol 300 mg/mL 100 mL Btl IV (10:56)
--- NOTE | 2021-02-15 10:59 | PC.NURSE ---
Report given to ENA Head. Pt in CT during report. Pt was given urinal for UA.
[2021-02-15 11:07] LABS: Alanine Aminotransferase 10 U/L (0-41); Albumin Level 3.9 g/dL (3.5-5.2); Alkaline Phosphatase 157 IU/L (40-130); Anion Gap 13.9 (5-19); Aspartate Amino Transferase 10 U/L (0-40); Blood Urea Nitrogen 12 mg/dL (6-20); Calcium 8.7 mg/dL (8.5-10.5); Carbon Dioxide 25 mmol/L (22-29); Chloride 105 mmol/L (98-107); Globulin 2.7 g/dL (1.3-4.6); Glomerular Filtration Rate 78.5 mL/min (90-130); Glucose 87 mg/dL (65-115); Osmolality Calculated 289 mOsm/kg (285-295); Potassium 3.9 mmol/L (3.5-5.1); Sodium 140 mmol/L (136-145); Total Bilirubin 0.8 mg/dL (0.15-1.2); Total Protein 6.6 g/dL (6.6-8.7)
--- NOTE | 2021-02-15 11:08 | PC.PHAR ---
pt states he takes care of his own medications-[facility],calcium pilycarbophil 625mg 1250mg po daily,zyrtec 10mg po daily prn,guaifensen 100mg/ml 10ml po qid prn,colace 100mg po tid prn,flonase 2 sprays daily prn,hydrocortisone 2.5% cream tid prn,crestor 40mg take 20mg po qpm and sildenafil 100mg take 50mg prn-pt states he has these medications but hasnt started taking them-[facility] pt states he only takes one tab qpm
[2021-02-15 11:51] LABS: Add Urine Microscopic? NO; Charge for UA Resulting for Rev
[2021-02-15] MEDS: piperacillin-tazobactam 3.375 GM in sodium chloride 0.9% (plus) 50 ML IV ×2 (11:52→20:25)
[2021-02-15 11:57] LABS: Bilirubin Urine Neg (Negative); Blood Urine Neg (Negative); Glucose Urine UA Norm (Normal); Ketones Urine Negative (Negative); Leukocyte Esterase Urine Negative (Negative); Nitrate Urine Negative (Negative); Protein Urine Neg (Negative); Urine Appearance Clear (CLEAR); Urine Color Yellow (Yellow); Urobilinogen Urine Norm (Negative); pH Urine 6.5 (5-7)
[2021-02-15] MEDS: metroNIDAZOLE IV 500 MG/100 ML PREMIX 100 MG IV ×2 (13:27→20:26)
--- NOTE | 2021-02-15 14:24 | PM.HP ---
Providers/Chief Complaint Admitting Physician: Ziyad Leach MD Primary Care Provider: Yusef Young DO Chief Complaint: LOW AB PAIN, EXCESSIVE URINATION, WEAKNESS History of Present Illness Chief Complaint: Abdominal pain History of present illness: Mr.Michael Tayo Mejia is a pleasant 50 year old male well-known to me from previous clinical encounters as the patient had recent umbilical hernia repair with mesh placement. Patient also will be getting an elective right inguinal hernia repair at some point. Also patient undergone a colonoscopy by me back in December 2020 and was found to have sigmoid colon polyp. But there was no evidence of diverticulosis per endoscopic examination. Patient started to have lower abdominal pain about last night and had low-grade fever and chills, went to outside clinic where he was worked up for UTI and he was already on antibiotics for some history of ear infection. As his symptoms got worse with the dull aching pain in the lower abdomen associated with nonbloody diarrhea. Patient came to the emergency department for further work-up and was found to have no significant findings on the lab work yet the CT scan showed below. CT scan findings of the abdomen and pelvis; 1. Acute diverticulitis with a small diverticular abscess measuring 1.6 x 1.2 x 1.6 CM. This is too small for percutaneous drainage. Diverticulitis is new since February 08, 2021. 2. Recent postoperative changes umbilical hernia repair with low-attenuation collection, likely seroma, measuring 7.8 x 2.3 x 4.1cm slightly smaller compared to February 08, 2021. 3. No other significant changes General surgery was consulted for further evaluation and potential management Review of Systems General: Reports: 10 or more systems reviewed and unremarkable except in HPI and below Medications/Allergies Home Medications Medication Instructions Recorded Confirmed Last Taken Type cyclobenzaprine 10 mg tablet 10 mg PO PRN tab 10/20/19 02/15/21 01/17/21 History famotidine 20 mg tablet 20 mg PO QPM tab 10/20/19 02/15/21 02/12/21 History ibuprofen 800 mg tablet 800 mg PO TID PRN tab 10/20/19 02/15/21 Unknown History ketorolac 10 mg tablet 10 mg PO Q6H PRN 5 Days #20 tab 01/20/21 02/15/21 Unknown Rx ondansetron HCl 4 mg tablet 4 mg PO Q6H PRN #10 tab 01/20/21 02/15/21 Unknown Rx azithromycin See Rx Instructions .ROUTE .COMPLEX 02/15/21 02/15/21 Unknown History calcium polycarbophil 1,250 mg PO DAILY 02/15/21 02/15/21 Unknown History cetirizine [Zyrtec] 10 mg PO DAILY PRN 02/15/21 02/15/21 Unknown History docusate sodium [Colace] 100 mg PO TID PRN 02/15/21 02/15/21 Unknown History fluticasone propionate [Flonase] 2 spray INTRANASAL DAILY PRN 02/15/21 02/15/21 Unknown History guaifenesin 200 mg PO QID PRN 02/15/21 02/15/21 Unknown History hydrocortisone See Rx Instructions .ROUTE .COMPLEX 02/15/21 02/15/21 Unknown History rosuvastatin [Crestor] 20 mg PO QPM 02/15/21 02/15/21 Unknown History sildenafil 50 mg PO PRN 02/15/21 02/15/21 Unknown History Allergies Allergy/AdvReac Type Severity Reaction Status Date / Time No Known Allergies Allergy Verified 02/15/21 14:26 PFSH Acute PFSH: Medical History Colon polyp Constipation Umbilical hernia Family History Father Cancer Mother Cancer Social History Smoking and tobacco status: never smoked Alcohol intake: never Vitals/I&O/Wt Last Vital Signs Temp 98.4 F 02/15/21 10:16 Pulse 61 02/15/21 13:30 Resp 15 02/15/21 13:30 BP 136/88 02/15/21 13:30 Pulse Ox 97 02/15/21 13:30 02/14/21 02/15/21 02/15/21 22:59 06:59 14:59 Intake Total 50 / 50 Balance 50 / 50 Weight last 48 hrs Weight 181 lb Physical Exam Narrative: EXAM NARRATIVE: Patient is conscious alert oriented X3 BMI 27.5 Head and neck examination PERRLA no masses no cervical lymphadenopathy no jaundice Cardiac examination audible S1-S2 no murmurs no gallops no arrhythmias Chest is clear bilateral,abscence of Rhonchi or wheezes,no surgical emphysema Abdomen nontender except mildly towards the left lower quadrant nondistended soft no organomegaly guarding or rigidity/no signs of peritonitis. Incision is clean dry and intact Extremities no cyanosis no clubbing no edema Data : 02/15/21 10:32 02/16/21 01:55 Micro: Microbiology 02/15/21 12:32 Blood Culture - Preliminary Blood SPECIMEN COLLECTED 02/15/21 11:50 Blood Culture - Preliminary Blood SPECIMEN COLLECTED A&P Assessment and plan (1) Diverticular disease of intestine with perforation and abscess: After thorough history physical examination reviewing the chart and the images of the CT scan with my personal interpretation shows the presence of complicated diverticulitis with small abscess formation. We will plan to have the patient on broad-spectrum antibiotics in the form of Zosyn and Flagyl IV. Patient can have ice chips and popsicles IV fluid resuscitation in the form of LR Repeated physical examination Strict I's and O's Repeat CBC and BMP in the morning Assurance and education All questions have been answered and all concerns have been addressed to patient's satisfaction. Status: Acute Attestations Medical Necessity Statement*: Observation status for broad-spectrum IV antibiotics repeated physical examination Time Spent in Patient Care: (>than 50% of time spent in counselling and/or direct pt care on unit). 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
[2021-02-15] MEDS: lactated ringers 1,000 ML 125 ML IV (15:20)
[2021-02-15] MEDS: morphine 4 mg/mL SDV 1 mL 2 MG IVP (20:37)
[2021-02-16] VITALS (7 sets, daily range): BP systolic 114–134; BP diastolic 70–80; PULSE 52–67; RESP 16–18; TEMP 36.6–36.9; O2SAT 92–97
[2021-02-16 02:37] LABS: Alanine Aminotransferase 9 U/L (0-41); Albumin Level 3.3 g/dL (3.5-5.2); Alkaline Phosphatase 136 IU/L (40-130); Anion Gap 13.9 (5-19); Aspartate Amino Transferase 9 U/L (0-40); Blood Urea Nitrogen 9 mg/dL (6-20); Calcium 8.3 mg/dL (8.5-10.5); Carbon Dioxide 24 mmol/L (22-29); Chloride 103 mmol/L (98-107); Globulin 2.4 g/dL (1.3-4.6); Glomerular Filtration Rate 78.5 mL/min (90-130); Glucose 78 mg/dL (65-115); Osmolality Calculated 282 mOsm/kg (285-295); Potassium 3.9 mmol/L (3.5-5.1); Sodium 137 mmol/L (136-145); Total Protein 5.7 g/dL (6.6-8.7)
[2021-02-16] MEDS: piperacillin-tazobactam 3.375 GM in sodium chloride 0.9% (plus) 50 ML IV ×3 (02:56→17:28)
[2021-02-16] MEDS: lactated ringers 1,000 ML 125 ML IV ×2 (02:58→16:09)
[2021-02-16] MEDS: metroNIDAZOLE IV 500 MG/100 ML PREMIX 100 MG IV ×3 (04:34→21:33)
--- NOTE | 2021-02-16 06:00 | P.PN_ITS ---
Subjective Subjective: Interval history: Pain under control. Patient overall feels well. No acute events overnight. Adequate urine output. Medications: Reviewed: Yes Vitals/I&O/Wt Last Vital Signs Temp 98.1 F 02/16/21 04:00 Pulse 56 L 02/16/21 04:00 Resp 16 02/16/21 04:00 BP 122/73 02/16/21 04:00 Pulse Ox 96 02/16/21 04:00 02/15/21 02/15/21 02/16/21 14:59 22:59 06:59 Intake Total 150 / 150 100 / 250 1150 / 1400 Output Total 200 / 200 450 / 650 Balance 150 / 150 -100 / 50 700 / 750 Weight last 48 hrs Weight 181 lb Physical Exam Narrative: EXAM NARRATIVE: Patient is conscious alert oriented X3 BMI 27.5 Head and neck examination PERRLA no masses no cervical lymphadenopathy no jaundice Cardiac examination audible S1-S2 no murmurs no gallops no arrhythmias Chest is clear bilateral,abscence of Rhonchi or wheezes,no surgical emphysema Abdomen nontender left lower quadrant nondistended soft no organomegaly guarding or rigidity/no signs of peritonitis. Incision is clean dry and intact Extremities no cyanosis no clubbing no edema Data : 02/15/21 10:32 02/16/21 01:55 Micro: Microbiology 02/15/21 12:32 Blood Culture - Preliminary Blood SPECIMEN COLLECTED 02/15/21 11:50 Blood Culture - Preliminary Blood SPECIMEN COLLECTED A&P Assessment and plan (1) Diverticular disease of intestine with perforation and abscess: We will continue Zosyn and Flagyl IV. Continue ice chips and popsicles, likely will advance to clear liquid diet if continues to do well through the day and WBC count continues to normalize. We will continue IV fluid resuscitation in the form of LR Repeated physical examination Strict I's and O's Encourage ambulation Assurance and education All questions have been answered and all concerns have been addressed to patient's satisfaction. Status: Acute Attestations Medical Necessity Statement*: Continue observation status for broad-spectrum IV antibiotics and clinical monitoring Time Spent in Patient Care: (>than 50% of time spent in counselling and/or direct pt care on unit) . Coding Level of Care Code Acute Paper Spooler for [facility] Diagnoses Diverticular disease of intestine with perforation and abscess K57.80
[2021-02-16 06:19] LABS: Basophils % 0.4 %; Eosinophils # 0.2 10^3/uL (0.0-0.8); Eosinophils % 2.9 %; Hematocrit 39.9 % (42.0-52.0); Hemoglobin 13.4 g/dL (11.7-16.6); Lymphocytes # 1.4 10^3/uL (0.8-4.8); Lymphocytes % 19.7 %; Mean Corpuscular HGB Conc 33.6 g/dL (30.0-36.0); Mean Corpuscular Hemoglobin 30.2 pg (28.0-34.0); Mean Corpuscular Volume 89.9 fL (80-94); Mean Platelet Volume 10.1 fL (7.4-10.4); Monocytes # 0.6 10^3/uL (0.2-0.9); Monocytes % 9.1 %; Neutrophils # 4.66 10^3/uL (1.8-7.7); Neutrophils % 67.5 %; Nucleated Red Blood Cells % 0 %; Platelet Count 273 10^3/cmm (130-400); Red Blood Count 4.44 10^6/uL (4.1-5.3); Red Cell Distribution Width 11.9 % (12.1-15.1); White Blood Count 6.9 10^3/uL (4.0-10.0)
[2021-02-16] MEDS: acetaminophen 325 mg Tablet 650 MG PO (12:58)
[2021-02-16] MEDS: ondansetron 2 mg/ML SDV 2 mL 4 MG IVP ×2 (12:58→21:49)
[2021-02-16] MEDS: morphine 4 mg/mL SDV 1 mL 2 MG IVP (21:38)
--- NOTE | 2021-02-16 21:56 | PC.NURSE ---
MORPHINE/NAUSEA Had some nausea with IV Morphine given by RN. Says did it some last night as well. RN gave dose of Zofran
[2021-02-17] VITALS (7 sets, daily range): BP systolic 114–138; BP diastolic 69–83; PULSE 46–89; RESP 17–18; TEMP 36.2–36.7; O2SAT 94–97
[2021-02-17] MEDS: lactated ringers 1,000 ML 125 ML IV
[2021-02-17] MEDS: piperacillin-tazobactam 3.375 GM in sodium chloride 0.9% (plus) 50 ML IV ×3 (02:28→19:16)
[2021-02-17 02:57] LABS: Basophils # 0.1 10^3/uL (0.0-0.1); Basophils % 0.9 %; Eosinophils # 0.2 10^3/uL (0.0-0.8); Eosinophils % 3.6 %; Hematocrit 39.1 % (42.0-52.0); Lymphocytes # 1.6 10^3/uL (0.8-4.8); Mean Corpuscular HGB Conc 33.2 g/dL (30.0-36.0); Mean Corpuscular Hemoglobin 29.8 pg (28.0-34.0); Mean Corpuscular Volume 89.7 fL (80-94); Mean Platelet Volume 9.5 fL (7.4-10.4); Monocytes # 0.6 10^3/uL (0.2-0.9); Monocytes % 11.4 %; Neutrophils # 2.91 10^3/uL (1.8-7.7); Neutrophils % 54.4 %; Nucleated Red Blood Cells % 0 %; Platelet Count 281 10^3/cmm (130-400); Red Blood Count 4.36 10^6/uL (4.1-5.3); Red Cell Distribution Width 11.8 % (12.1-15.1); White Blood Count 5.4 10^3/uL (4.0-10.0)
[2021-02-17 03:08] LABS: Anion Gap 11.8 (5-19); Blood Urea Nitrogen 8 mg/dL (6-20); Calcium 8.3 mg/dL (8.5-10.5); Carbon Dioxide 27 mmol/L (22-29); Chloride 101 mmol/L (98-107); Glomerular Filtration Rate 70.3 mL/min (90-130); Glucose 82 mg/dL (65-115); Osmolality Calculated 279 mOsm/kg (285-295); Potassium 3.8 mmol/L (3.5-5.1); Sodium 136 mmol/L (136-145)
[2021-02-17] MEDS: metroNIDAZOLE IV 500 MG/100 ML PREMIX 100 MG IV ×3 (04:31→17:56)
--- NOTE | 2021-02-17 05:24 | PC.NURSE ---
SHIFT SUMMARY Has had a good night. 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 Is very pleasant and talkative. Abd is soft with very minimal tenderness aroungd umbilical surgery incision. Says is passing gas. Was enc to ambulate. Incision line in well approximated. Had a scab to right edge that he says fell off during shower yesterday. Received IV Morphine X1 at bedtime. Reported some mild abd pain and says it helped him rest last night. Experienced some nausea with the Morphine being given and received IV Zofran with good relief. Otherwise is taking clear liquid diet without problems. IV infusing at 125ml/hr rate and is receiving IV antibiotics. Is hoping to go home soon. visited in the evening
--- NOTE | 2021-02-17 07:31 | P.PN_ITS ---
Subjective Subjective: Interval history: Pain is under control. Patient overall feels better and tolerating p.o. intake. Adequate urine output. Otherwise no acute events overnight Medications: Reviewed: Yes Vitals/I&O/Wt Last Vital Signs Temp 97.2 F L 02/17/21 04:00 Pulse 89 02/17/21 04:00 Resp 17 02/17/21 04:00 BP 124/77 02/17/21 04:00 Pulse Ox 95 02/17/21 04:00 02/16/21 02/17/21 02/17/21 22:59 06:59 14:59 Intake Total 1080 / 1780 1431.25 / 3211.25 Output Total 950 / 1400 600 / 2000 Balance 130 / 380 831.25 / 1211.25 Weight last 48 hrs Weight 181 lb Physical Exam Narrative: EXAM NARRATIVE: Patient is conscious alert oriented X3 BMI 27.5 Head and neck examination PERRLA no masses no cervical lymphadenopathy no jaundice Abdomen nontender left lower quadrant nondistended soft no organomegaly guarding or rigidity/no signs of peritonitis. Incision is clean dry and intact, minor gapping towards the right lateral END. Extremities no cyanosis no clubbing no edema Data : 02/17/21 02:25 02/17/21 02:25 Micro: Microbiology 02/15/21 12:32 Blood Culture - Preliminary Blood NEGATIVE TO DATE 02/15/21 11:50 Blood Culture - Preliminary Blood NEGATIVE TO DATE A&P Assessment and plan (1) Diverticular disease of intestine with perforation and abscess: continue Zosyn and Flagyl IV. We will advance to full liquid diet Steri-Strips application on the incision We will switch IV fluids to D5 half-normal +20 KCl at 75 mL/h Repeated physical examination Strict I's and O's Encourage ambulation Assurance and education All questions have been answered and all concerns have been addressed to patient's satisfaction. Status: Acute Attestations Medical Necessity Statement*: Patient requiring inpatient hospitalization for broad-spectrum IV antibiotics and repeated physical examination Time Spent in Patient Care: (>than 50% of time spent in counselling and/or direct pt care on unit) . 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
[2021-02-17] MEDS: D5-NS 0.45% + KCL 20 mEq 20 MEQ/1,000 ML BAG 75 MEQ IV (07:55)
[2021-02-17] MEDS: acetaminophen 325 mg Tablet 650 MG PO ×2 (10:31→21:39)
[2021-02-17] MEDS: pantoprazole DR 40 mg Tablet PO (12:22)
[2021-02-17] MEDS: ondansetron 2 mg/ML SDV 2 mL 4 MG IVP (21:39)
[2021-02-18] MEDS: D5-NS 0.45% + KCL 20 mEq 20 MEQ/1,000 ML BAG 75 MEQ IV (00:55)
[2021-02-18] MEDS: metroNIDAZOLE IV 500 MG/100 ML PREMIX 100 MG IV (00:59)
[2021-02-18] MEDS: piperacillin-tazobactam 3.375 GM in sodium chloride 0.9% (plus) 50 ML IV (04:08)
[2021-02-18 04:54] VITALS: BP 134/86; PULSE 57; RESP 17; TEMP 36.7; O2SAT 94
[2021-02-18 07:46] VITALS: BP 146/89; PULSE 60; RESP 17; TEMP 36.6; O2SAT 96
[2021-02-18] MEDS: pantoprazole DR 40 mg Tablet PO (08:07)
--- NOTE | 2021-02-18 09:08 | PM.DCS ---
Discharge Providers Date of Admission: 02/17/21 07:37 Date of Discharge: February 18, 2021 Attending Provider at Admission: Ziyad Leach MD Attending Provider at Discharge: Ziyad Leach MD Primary Care Provider: Yusef Young DO Diagnoses at Discharge Discharge Diagnosis (1) Diverticular disease of intestine with perforation and abscess: Status: Resolved Reason for Visit Reason for Visit: LOW AB PAIN, EXCESSIVE URINATION, WEAKNESS Hospital Course Hospital Course Patient overall responding to conservative management in the form of IV fluid resuscitation and parenteral antimicrobial therapy, continue to have stable vital signs and good urine output. Rating p.o. intake and further discussion with infectious disease specialist with regard to antimicrobial therapy upon discharge and Cipro Flagyl would be very appropriate per Dr. Walter for 2 weeks p.o. due to the high bioavailability of both medications in this condition. We will plan to send the patient home today on oral antibiotics for 2 weeks and follow-up with me at the office. Education was given to the patient about having full liquid diet over the weekend and start some GI diet on Sunday,also education was given to the patient with regard to any deterioration of signs or symptoms should go back to the emergency department for further evaluation. Patient continues to pass gas and denies any complaints of abdominal pain. Emphasis on high-fiber diet and appropriate education was given to the patient as handouts with regard to diverticulosis and diverticulitis. Physical Exam Narrative: EXAM NARRATIVE: Patient is conscious alert oriented X3 BMI 27.5 Head and neck examination PERRLA no masses no cervical lymphadenopathy no jaundice Abdomen nontender left lower quadrant nondistended soft no organomegaly guarding or rigidity/no signs of peritonitis. Incision is clean dry and intact, minor gapping towards the right lateral END. Extremities no cyanosis no clubbing no edema Discharge Data Data Completed and Pending: Completed Studies During Hospitalization Category Date Time Status CT abdomen pelvis w con* [id number] Stat Cat Scan 02/15/21 10:37 Completed Pending at discharge Category Date Time Status Blood Culture Sta t Lab 02/15/21 12:32 Results Vitals: Last Vital Signs Temp 97.9 F 02/18/21 07:46 Pulse 60 02/18/21 07:46 Resp 17 02/18/21 07:46 BP 146/89 02/18/21 07:46 Pulse Ox 96 02/18/21 07:46 Discharge Plan Discharge Patient Disposition: Home Condition: Stable Prescriptions: New ciprofloxacin HCl 500 mg tablet 500 mg PO Q12H 14 Days Qty: 28 RF: 0 Flagyl 500 mg tablet 500 mg PO Q8H 14 Days Qty: 42 RF: 0 Continued ibuprofen 800 mg tablet 800 mg PO TID PRN (Reason: Pain) RF: 0 Hold Instructions: Resume on 01/21/21. famotidine 20 mg tablet 20 mg PO QPM RF: 0 cyclobenzaprine 10 mg tablet 10 mg PO PRN RF: 0 ondansetron HCl [Zofran] 4 mg tablet 4 mg PO Q6H PRN (Reason: nausea and vomiting) Qty: 10 RF: 0 ketorolac 10 mg tablet 10 mg PO Q6H PRN (Reason: pain) 5 Days Qty: 20 RF: 0 Zyrtec 10 mg Tablet 10 mg PO DAILY PRN (Reason: Allergy Symptoms) RF: 0 azithromycin 250 mg Tablet See Rx Instructions .ROUTE .COMPLEX RF: 0 sildenafil 100 mg Tablet 50 mg PO PRN RF: 0 hydrocortisone 0.25 % Cream See Rx Instructions .ROUTE .COMPLEX RF: 0 calcium polycarbophil 625 mg Tablet 1,250 mg PO DAILY RF: 0 Colace 100 mg Capsule 100 mg PO TID PRN (Reason: Constipation) RF: 0 fluticasone propionate 50 mcg/actuation [place],Suspension 2 spray INTRANASAL DAILY PRN (Reason: Allergy Symptoms) RF: 0 guaifenesin 100 mg/5 mL Syrup 200 mg PO QID PRN (Reason: Cough) RF: 0 Crestor 40 mg Tablet 20 mg PO QPM RF: 0 Discharge Orders: Discharge Order (Routine); Ordered 02/18/21 Ordered By: Ziyad Leach Referrals: Ziyad Leach MD [Physician] - 03/03/21 8:55 am (Return to surgery office in 2 weeks) Yusef Young DO [Primary Care Provider] - 02/25/21 11:30 am Discharge Diet: As Directed Discharge Activity: Increase activity as tolerated Patient Instructions: Ciprofloxacin (By mouth), Metronidazole (By mouth), Diverticulitis (DC), Opioid Safety Activity Restrictions/Additional Instructions: Plan of care; Review the pathology with the patient Return to primary care provider Avoid constipation Avoid seeds nuts and popcorn High Fiber diet; As Fiber softens the stool and helps prevent constipation. It also can help decrease pressure in the colon and help prevent flare-ups of diverticulitis. High-fiber foods include: ? Beans and legumes ? Bran, whole wheat bread and whole grain cereals such as oatmeal ? Brown and wild rice ? Fruits such as apples, bananas and pears ? Vegetables such as broccoli, carrots, corn and squash ? Whole wheat pasta The target is to eat 25 to 30 grams of fiber daily. Drink at least 8 cups of fluid daily. Fluid will help soften your stool.Exercise also promotes bowel movement and helps prevent constipation. Weight management Assurance and education All questions have been answered Discharge Attestations Time Spent in Discharge Care*: greater than 30 min Specific Discharge Activities: educating patient and educating and/or supporting family/caregiver Status at Discharge: Cognitive status at discharge: cognitively intact, Behavioral status at discharge: cooperative, Functional status at discharge: independent ambulation Overall status at discharge: patient is progressing back to baseline Quality Metrics Clinical Quality Measures During this hospital stay, did patient experience: None Coding Level of Care Code Acute [facility] SHARI LARIOS note Diagnoses Diverticular disease of intestine with perforation and abscess K57.80
[2021-02-18 11:32] VITALS: BP 145/90; PULSE 74; RESP 17; TEMP 37; O2SAT 95
[2021-02-18 11:55] VITALS: BP 145/90; PULSE 74; RESP 17; TEMP 37; O2SAT 95
== END 2021-02-18 11:50 | disposition home or self-care (01) | DRG 392 ==
LOC: ER 12:59 → MEDSURG 18:32
PROVIDERS: Admitting Provider Surgery; Emergency Provider Family Medicine; PCP Emergency Medicine Emergency Medical Services; Visit Provider Surgery
DX: K57.20 Diverticulitis of large intestine with perforation and abscess without bleeding (principal); L76.34 Postprocedural seroma of skin and subcutaneous tissue following other procedure
CPT/HCPCS: 36415; 74177; 80048; 80053; 81003; 85025; 87040; 96365; 99285; G0378; J2270; J2405; J2543; Q9967; S0030

== ENCOUNTER 2021-03-02 20:00 | Outpatient (CLI) | payer OTHER, SELFPAY | END 2021-03-02 20:01 | disposition home or self-care (01) | LOC: SLEEP 03-03 10:20 | PROVIDERS: PCP Emergency Medicine Emergency Medical Services; Visit Provider Emergency Medicine Emergency Medical Services | DX: G47.30 Sleep apnea, unspecified (principal) | CPT/HCPCS: 95811 ==

== ENCOUNTER → 2021-03-31 12:51 | Outpatient (BNVA) | payer OTHER, SELFPAY | PROVIDERS: PCP Emergency Medicine Emergency Medical Services; Visit Provider Surgery | DX: R19.09 Other intra-abdominal and pelvic swelling, mass and lump (principal); Z11.52 Encounter for screening for COVID-19; Z20.822 Contact with and (suspected) exposure to COVID-19 | CPT/HCPCS: 87635 ==

== ENCOUNTER 2021-04-05 05:48 | Day surgery (SDC) | payer OTHER, SELFPAY ==
[2021-04-04 14:16] VITALS: BMI 27.3
[2021-04-05] VITALS (10 sets, daily range): BP systolic 120–143; BP diastolic 65–89; PULSE 51–90; RESP 13–18; TEMP 36.3–36.7; O2SAT 96–99
--- NOTE | 2021-04-05 06:16 | W.PM.OPSUD ---
Surgery/Procedure H&P Update DATE OF PROCEDURE: April 05, 2021 DATE H&P PERFORMED: 03/31/21 H&P UPDATE INFORMATION: I have reviewed H&P completed within last 30 days, I have examined patient prior to procedure and No changes to prior documentation PREOP DIAGNOSIS: Right inguinal Hernia PRIMARY INDICATION FOR PROCEDURE: The same PLANNED PROCEDURE: Operation Date: 04/05/21 07:00 Proposed Procedures p open right inguinal hernia reapir with mesh placement 13511 r19.09(Right) - Ziyad Leach MD
[2021-04-05] MEDS: sodium chloride 0.9% 1,000 ML 30 ML IV (06:22)
[2021-04-05] MEDS: acetaminophen 1,000 MG/100 ML PIGGYBACK 400 MG IV (06:22)
--- NOTE | 2021-04-05 06:31 | ANES.PREANE2 ---
Pre-Anesthetic Assessment Pre-Anesthetic Assessment: Height/Weight: Height 1.73 m Weight 81.647 kg Temp Pulse Resp BP Pulse Ox 97.3 F L 63 18 143/65 98 04/05/21 06:02 04/05/21 06:02 04/05/21 06:02 04/05/21 06:02 04/05/21 06:02 Preop Diagnosis: Right inguinal Hernia Proposed Procedure: Operation Date: 04/05/21 07:00 Proposed Procedures p open right inguinal hernia reapir with mesh placement 69473 r19.09(Right) - Ziyad Leach MD Familial anesthetic complications: none Was Beta Norman taken within 24 hours: N/A Was Clonidine taken within 24 hours: N/A Last intake: Intake Last Liquid Date 04/04/21 Last Liquid Time 21:30 Last Solid Date 04/04/21 Last Solid Time 20:00 Social: Social History: No alcohol and No tobacco Exam: Pre-Anes Outpt Exam: alert, oriented x 3, clear to auscultation bilaterally and regular rate & rhythm Airway: Cervical ROM: WNL MP: 2 Dentition: Full GI: GI: GERD Comments: hx diverticulutis Anesthetic Plan: ASA status: 2 Anesthesia: General Risk of > 500 ml blood loss (7ml/kg in children): No Meds/Allergies Current Medications: Current Medications Generic Name Dose Route Start Last Admin Trade Name Freq PRN Reason Stop Dose Admin Sodium Chloride 1,000 mls @ 30 ml s/hr 04/05/21 06:00 04/05/21 06:22 Sodium Chloride 0.9% IV 04/06/21 05:59 30 mls/hr .Q24H HUBER Administration PFSH Anesthesia PFSH: Medical History Colon polyp Constipation Diverticular disease of intestine with perforation and abscess Diverticulitis Umbilical hernia Family History Father Cancer Mother Cancer Social History Smoking and tobacco status: never smoked Alcohol intake: never Data Anesthesia Cardiac Studies: No Data to Display
[2021-04-05] MEDS: lidocaine 2% INJ 20 mL INJECTION (07:32)
--- NOTE | 2021-04-05 08:17 | PM.OP ---
Operative Report Date of procedure: April 05, 2021 Pre-op Diagnosis: Right inguinal Hernia Post-op diagnosis: other (Right indirect inguinal hernia and lipoma of the cord and lipoma of the cord) Procedure Done: 1-Right open inguinal hernia repair with mesh placement 2-Excision of lipoma of the cord Implants: X large polypropylene CONE And a mesh sheet. Specimens removed/disposition: Lipoma of the cord Hernial sac Surgeon: Ziyad Leach Manager Molecular: Surgical chay Babcock Circulating nurse Jyothi Shultz Anesthesia: General (NATALIAA JUAN Moffett) Estimated blood loss (mL): 15 Condition: stable Disposition: same day Brief History: Symptomatic right inguinal hernia. Full H&P and informed consent per chart Procedure: Patient was identified in the holding area and RIGHT groin was marked by myself, patient was asked to void urine prior to surgery ,patient was taken to the operating room where he was placed in supine position, antibiotic was given with induction, endotracheal tube was placed per anesthesia, prep and drape of both groins and lower abdomen and scrotum including the genitalia was done under the usual sterile technique. Timeout was done verifying the patient's name/date of /planned procedure destination after the procedure, all were in agreement. SCDs confirmed to be functioning, preoperative antibiotics administered per protocol, and beta trixie protocol was confirmed. I started with a right groin incision 1-1/2 finger above the inguinal ligament towards the pubic tubercle, used 15 blade knife skin incision followed by a traversing vein was securely ligated by 3-0 silk stick ties and divided , continued to dissect using Bovie to subcutaneous Slade's down to the external oblique aponeurosis, a large RIGHTindirect inguinal hernia was identified, external oblique aponeurosis was then incised using a 10 blade knife, after application of 2 hemostats across sides of the fascia and opened it, right ileo-inguinal nerve was safeguard, I managed to dissect and deliver the right spermatic cord out of the wound, and placed a Sprague drain for traction and countertraction. I dissected the spermatic cord and the vas deferens were identified and safeguarded ,as I identified the right inguinal hernia sac , the hernia sac was totally dissected until I reached the deep inguinal ring, the hernia sac was comprised of large preperitoneal fat portion, the sac pushed gently inside the abdominal cavity and I divided the extra sac and sent it for pathology. Some oozing points were controlled by application of [id number] 2-0 silk sutures.In the intreim there was a large lipoma of the cord that was dissected and secured with 2-0 silk tie and sent for permanent pathology as well. Attention was now deviated to mesh placement , using polypropylene mesh system was applied tension-free(X-large size), a cone was applied at the deep inguinal ring stabilized by silk sutures 2/0, followed by a sheet of mesh was applied onto the floor of the posterior wall of the left inguinal canal and anchored medially to the pubic tubercle then inferiorly to the underlying surface of the inguinal ligament and superiorly to the internal oblique aponeurosis using some sutures 2/0 silk, both limbs of the mesh encircled the exit of the cord at the deep inguinal ring, and stitched down. The cord maintained to be in good position thorough irrigation of the wound was done with normal saline Followed by appropriate hemostasis and closure of the external oblique aponeurosis was done by 2/O Vicryl, followed by approximation of Slade's fascia followed by 4/ Monocryl to close the skin, dressing was then applied in the form of Surgical glue. Counts of instruments, sponges and needles were completed at the end of the procedure. Scrotal support was then placed Patient tolerated the procedure well and was taken to the recovery area In stable condition after extubation I was present for the whole entire procedure
--- NOTE | 2021-04-05 08:50 | SUR.PHASEI ---
0850- ORAL AIRWAY OUT, SIMPLE MASK AT 6LPM SAT 100%
[2021-04-05] MEDS: HYDROcodone-acetaminophen 5-325 mg Tablet 1 TAB PO (09:43)
--- NOTE | 2021-04-05 15:54 | ANE.PACU2 ---
Inpatient post-anesthesia follow up: Airway intact: Yes Vital signs: Temperature 98.0 F Pulse Rate 64 Respiratory Rate 18 Blood Pressure 134/82 Pulse Oximetry 99 Oxygen Delivery Me thod Room Air Oxygen Flow Rate 6 Fraction of Inspir ed Oxygen Hydration adequate: Yes Nausea and vomiting: No Pain level: 2 Mental status: Baseline
== END 2021-04-05 10:17 | disposition home or self-care (01) ==
PROVIDERS: PCP Emergency Medicine Emergency Medical Services; Visit Provider Surgery
PROC: (CPT 49505; principal; 2021-04-05 07:00)
DX: K40.90 Unilateral inguinal hernia, without obstruction or gangrene, not specified as recurrent (principal); D17.6 Benign lipomatous neoplasm of spermatic cord
CPT/HCPCS: 49505; 88302; 88305; 96365; J0690; J1100; J1885; J2250; J2405; J2704; J2710; J3010; J3490; J7030

== ENCOUNTER → 2021-06-08 10:50 | Outpatient (BNVA) | payer OTHER, SELFPAY | PROVIDERS: PCP Emergency Medicine Emergency Medical Services; Referring Provider Emergency Medicine Emergency Medical Services; Visit Provider Urology | DX: Z12.5 Encounter for screening for malignant neoplasm of prostate (principal); N13.1 Hydronephrosis with ureteral stricture, not elsewhere classified; R10.31 Right lower quadrant pain | CPT/HCPCS: 81003; G0103 ==

== ENCOUNTER → 2022-11-22 10:19 | Outpatient (BNVA) | payer OTHER, SELFPAY | PROVIDERS: PCP Emergency Medicine Emergency Medical Services; Visit Provider Podiatrist Foot & Ankle Surgery | DX: M79.672 Pain in left foot (principal); M72.2 Plantar fascial fibromatosis | CPT/HCPCS: 20550; 73630; 99204 ==

== ENCOUNTER → 2023-01-03 10:44 | Outpatient (BNVA) | payer OTHER, SELFPAY | PROVIDERS: PCP Emergency Medicine Emergency Medical Services; Visit Provider Podiatrist Foot & Ankle Surgery | DX: M72.2 Plantar fascial fibromatosis (principal); L60.3 Nail dystrophy | CPT/HCPCS: 99214 ==

== ENCOUNTER → 2023-02-05 10:54 | Outpatient (BNVA) | payer OTHER, SELFPAY | PROVIDERS: PCP Emergency Medicine Emergency Medical Services; Visit Provider Podiatrist Foot & Ankle Surgery | DX: M72.2 Plantar fascial fibromatosis (principal); B35.1 Tinea unguium | CPT/HCPCS: 20550; 99213; J1100; J3301 ==

== ENCOUNTER → 2023-02-28 09:15 | Outpatient (BNVA) | payer OTHER, SELFPAY | PROVIDERS: PCP Emergency Medicine Emergency Medical Services; Visit Provider Podiatrist Foot & Ankle Surgery | DX: M72.2 Plantar fascial fibromatosis (principal); B35.1 Tinea unguium | CPT/HCPCS: 99214 ==

== ENCOUNTER → 2023-04-10 15:04 | Outpatient (BNVA) | payer OTHER, SELFPAY | PROVIDERS: PCP Emergency Medicine Emergency Medical Services; Visit Provider Podiatrist Foot & Ankle Surgery | DX: M72.2 Plantar fascial fibromatosis (principal); B35.1 Tinea unguium; Z71.89 Other specified counseling | CPT/HCPCS: 20550; 99213; J1100; J3301 ==

== ENCOUNTER → 2023-06-12 12:48 | Outpatient (BNVA) | payer OTHER, SELFPAY | PROVIDERS: PCP Emergency Medicine Emergency Medical Services; Visit Provider Podiatrist Foot & Ankle Surgery | DX: M72.2 Plantar fascial fibromatosis; B35.1 Tinea unguium | CPT/HCPCS: 99213 ==

== ENCOUNTER → 2023-07-24 07:45 | Outpatient (BNVA) | payer OTHER, SELFPAY | PROVIDERS: PCP Emergency Medicine Emergency Medical Services; Visit Provider Podiatrist Foot & Ankle Surgery | DX: M72.2 Plantar fascial fibromatosis (principal); B35.1 Tinea unguium | CPT/HCPCS: 99213 ==

== ENCOUNTER 2023-08-20 06:33 | Outpatient (CLI) | payer OTHER, SELFPAY ==
--- NOTE | 2023-08-20 | MR_ITS ---
WS: [id number] INDICATION: RIGHT hamstring pain TECHNIQUE: Axial PD, axial T2, coronal T1, coronal STIR, sagittal T1, and sagittal STIR FINDINGS: Normal RIGHT hip. Normal anatomic alignment. Normal bone marrow signal in the RIGHT femoral head and neck. Femoral shaft appears normal. No acute fractures or bone marrow edema. Semimembranosus and semitendinosis appear intact. Small small mount of edema at the origin biceps fem eddie long head with a small chronic bony avulsion from the ischial tuberosity. Semimembranosus tendon origin appears intact. No significant hamstring atrophy. Normal LEFT hip and hamstring origins. IMPRESSION: 1. RIGHT hip is normal in appearance. No acute fractures or bone marrow edema. 2. Small bony avulsion with associated fluid and edema at the long head of the biceps femoris origin at the ischial tuberosity compatible with prior injury. 3. LEFT ischial tuberosity is normal in appearance. 4. No other acute findings.
== END 2023-08-20 06:34 | disposition home or self-care (01) ==
LOC: RAD 06:33
PROVIDERS: PCP Emergency Medicine Emergency Medical Services; Visit Provider Orthopaedic Surgery
DX: S76.311D Strain of muscle, fascia and tendon of the posterior muscle group at thigh level, right thigh, subsequent encounter (principal); X58.XXXD Exposure to other specified factors, subsequent encounter; R60.0 Localized edema
CPT/HCPCS: 73718

== ENCOUNTER 2023-08-20 06:34 | Outpatient (CLI) | payer OTHER, SELFPAY ==
--- NOTE | 2023-08-20 08:00 | MR_ITS ---
WS: [id number] EXAMINATION: MR foot LT wo con* [id number] ORDER DATE: 08/20/2023 7:17 AM COMPARISON: None. HISTORY: pain CONTRAST: None. TECHNIQUE: Sagittal T1, sagittal STIR, coronal PD, coronal T2, axial T1, axial T2, and axial PD imagi ng with fat saturation technique. FINDINGS: Achilles enthesophyte. Plantar calcaneal spurring. Normal tarsal metatarsal alignment. Mild bunion de formity. Thickening of the medial insertion of the plantar fascia measuring approximately 6.6 mm in s hort axis dimension. Associated surrounding perifascial edema with a small amount of fluid. Findings compatible with planter fasciitis. Lateral plantar insertion has a more normal appearance. Normal med ial and lateral malleolus. Normal talar dome. Normal talocalcaneal articulation. Normal tibiotalar ar ticulation. Tiny joint effusion. Normal navicular. Base of the fifth metatarsal is normal in appearan ce. Achilles is intact. Trace fluid in the retrocalcaneal bursa. Tenosynovitis involving the peroneal ten dons. Trace synovitis tibialis posterior. Otherwise normal extensor and flexor compartment tendons. N ormal deltoid ligament. ATF appears intact. IMPRESSION: 1. Findings compatible with planter fasciitis involving the medial plantar insertion described above . 2. Tenosynovitis involving the peroneal tendons and tibialis posterior. 3. Trace fluid in the retrocalcaneal bursa. 4. ATF and deltoid ligament appear intact.
== END 2023-08-20 06:35 | disposition home or self-care (01) ==
LOC: RAD 06:34
PROVIDERS: PCP Emergency Medicine Emergency Medical Services; Visit Provider Podiatrist Foot & Ankle Surgery
DX: M72.2 Plantar fascial fibromatosis (principal); M65.872 Other synovitis and tenosynovitis, left ankle and foot
CPT/HCPCS: 73718

== ENCOUNTER → 2023-08-23 10:48 | Outpatient (BNVA) | payer OTHER, SELFPAY | PROVIDERS: PCP Emergency Medicine Emergency Medical Services; Visit Provider Podiatrist Foot & Ankle Surgery | DX: M72.2 Plantar fascial fibromatosis (principal); M76.72 Peroneal tendinitis, left leg; B35.1 Tinea unguium; M62.462 Contracture of muscle, left lower leg | CPT/HCPCS: 99213; J1100; J3301; J3490 ==

== ENCOUNTER 2023-08-31 05:47 | Day surgery (SDC) | payer OTHER, SELFPAY ==
[2023-08-31] VITALS (11 sets, daily range): BP systolic 132–150; BP diastolic 83–103; PULSE 58–82; RESP 16–18; TEMP 36.1–36.4; O2SAT 17–97; BMI 27.5
[2023-08-31] MEDS: sodium chloride 0.9% 1,000 ML 30 ML IV (06:12)
--- NOTE | 2023-08-31 06:24 | W.PM.OPSUD ---
Surgery/Procedure H&P Update DATE OF PROCEDURE: August 31, 2023 DATE H&P PERFORMED: 08/23/23 H&P UPDATE INFORMATION: I have reviewed H&P completed within last 30 days, I have examined patient prior to procedure, No changes to prior documentation and H[place] is in [facility] [place] date indicated PREOP DIAGNOSIS: Left plantar fasciitis, left gastrocnemius equinus PLANNED PROCEDURE: Operation Date: 08/31/23 07:00 Proposed Procedures p Gastrocnemius recession and plantar fascia injection all left lower extremity [id number],m72.2,m62.462(Left) - Silvestre Jeffery DPM s Cortisone Injection(Left) - Silvestre Jeffery DPM
--- NOTE | 2023-08-31 06:25 | ANES.PREANE2 ---
Pre-Anesthetic Assessment Height/Weight: Height 1.73 m Weight 82.1 kg Temp Pulse Resp BP Pulse Ox O2 Del Method 97.5 F L 62 16 150/100 97 Room Air 08/31/23 05:58 08/31/23 05:58 08/31/23 05:58 08/31/23 05:58 08/31/23 05:58 08/31/23 05:58 Preop Diagnosis: Left plantar fasciitis, left gastrocnemius equinus Operation Date: 08/31/23 07:00 Proposed Procedures p Gastrocnemius recession and plantar fascia injection all left lower extremity [id number],m72.2,m62.462(Left) - Silvestre Jeffery DPM s Cortisone Injection(Left) - Silvestre Jeffery DPM Familial anesthetic complications: None Was Beta Norman taken within 24 hours: N/A Was Clonidine taken within 24 hours: N/A Last intake: Intake Last Liquid Date 08/30/23 Last Liquid Time 20:00 Last Solid Date 08/30/23 Last Solid Time 20:00 Social No alcohol and No tobacco Airway Mallampati: Class I Dentition: full GI Gastroesophageal Reflux Disease Anesthetic Plan ASA status: 2 Anesthesia: MAC Risk of > 500 ml blood loss (7ml/kg in children): No Medications/Allergies Home Medications Medication Instructions Recorded Confirmed Last Taken Type cyclobenzaprine 10 mg tablet 10 mg PO PRN 10/20/19 08/30/23 01/17/21 History ibuprofen 800 mg tablet 800 mg PO TID PRN Pain 10/20/19 08/30/23 08/27/23 History cetirizine 10 mg tablet (Zyrtec) 10 mg PO DAILY PRN Allergy Symptoms 02/15/21 08/30/23 Unknown History fluticasone propionate 50 2 spray intranasal DAILY PRN 02/15/21 08/30/23 Unknown History mcg/actuation nasal Allergy Symptoms spray,suspension sildenafil 100 mg tablet 50 mg PO PRN 02/15/21 08/30/23 Unknown History alirocumab 75 mg/mL subcutaneous 75 mg SUBCUT Q14D 05/18/21 08/30/23 Unknown History pen injector Custom Sole Supports #1 ea 01/01/23 08/23/23 Unknown Rx Custom Molded Inserts #1 ea 04/10/23 08/23/23 Unknown Rx Allergies Allergy/AdvReac Type Severity Reaction Status Date / Time No Known Allergies Allergy Verified 08/30/23 13:40 Current Medications Generic Name Dose Route Start Last Admin Trade Name Freq PRN Reason Stop Dose Admin Sodium Chloride 1,000 mls @ 30 mls/hr 08/31/23 06:00 08/31/23 06:12 Sodium Chloride 0.9% IV 09/01/23 05:59 30 mls/hr .Q24H HUBER Administration PFSH Anesthesia Medical History Colon polyp Constipation Decreased hearing Diverticular disease of intestine with perforation and abscess Diverticulitis Surgical History History of colonoscopy with polypectomy 2020 History of ear surgery History of neck surgery History of spinal surgery History of umbilical hernia repair Status post right inguinal hernia repair Family History Father Cancer Mother Cancer Social History Alcohol intake: never Substance/Drug Use: never Marital status: Current occupational status: retired Data Anesthesia Cardiac Studies: No Data to Display
[2023-08-31] MEDS: ceFAZolin 2,000 MG in sodium chloride 0.9% (plus) 50 ML 100 MG IV (07:01)
[2023-08-31] MEDS: lidocaine 2% INJ 20 mL 15 ML INJECTION (07:18)
[2023-08-31] MEDS: BUPivacaine 0.25% INJ 30 mL INJECTION (07:18)
[2023-08-31] MEDS: dexamethasone 4 mg/mL INJ INJECTION (07:39)
--- NOTE | 2023-08-31 07:49 | P.BOP_ITS ---
Date of Procedure: 08/31/23 Surgeon: Silvestre Jeffery DPM [employer] Engineer(s): Maikel Procedure(s) performed: Left Gastrocnemius recession and plantar fascia injection Findings of the procedure(s): none Estimated blood loss: 2cc Specimen(s) removed: none Post-operative diagnosis: same
--- NOTE | 2023-08-31 07:51 | P.OP_ITS ---
Operative Report Date of procedure: August 31, 2023 Pre-op diagnosis: Left gastrocnemius equinus. Recalcitrant plantar fasciitis, left foot. Post-op diagnosis: Same Post-op findings: Improved ankle joint dorsiflexion postoperatively. Procedure done: Left gastrocnemius recession. CPT code 47855 Left plantar fascia injection. CPT code 99830 Implants: 3-0 Vicryl, 4-0 Vicryl, 4-0 nylon Specimens removed/disposition: None Pathology: None Surgeon: Silvestre Jeffery DPM [employer] Dist[employer] Tender: Maikel Estimated blood loss: Less than 5 14 IV fluids: 0 Urine output: 0 Complications: none Findings: Preoperative gastrocnemius equinus to the left. Postoperative dorsiflexion beyond 8 degrees of dorsiflexion at the left ankle. Brief History: MRI findings consistent with plantar fascial cyst, left.? Patient has gastroc equinus.? Discussed stepwise approach consisting of gastrocnemius recession and injection to the left plantar fascia under anesthesia.? Discussed risks versus benefits of surgical intervention and need for potential plantar fascia release down the road, would like to avoid this and start with gastrocnemius recession first.? He is on board with this and understands risk versus benefits.? I reviewed at length with the patient, the risks, potential complications, benefits, alternatives, expectations, and typical outcomes associated with the surgery. The risks and potential complications were explained in detail, including but not limited to infection, wound dehiscence or soft tissue complications, bleeding and hematoma, chronic edema, neuritis or nerve damage producing numbness or chronic pain, CRPS, failure to relieve pain or worsening pain, thick / painful / unsightly scar, limited motion / stiffness, malposition, delayed union, malunion, or nonunion, fracture, reaction to implants, anesthetic complications, venous thromboembolism, and deformity recurrence.? I discussed the notion of no regrets with the patient as it pertains to complications and outcomes. The patient seemed to understand the nature of the proposed care and required convalescence. They asked appropriate questions, answered to their satisfaction. They are aware no guarantees can be made as to a satisfactory outcome and they understand there may be other possible unforeseen complications or outcomes not listed here that will be treated accordingly if they arise. There were no written or implied guarantees given to the patient. They gave informed consent to proceed. Procedure: Under mild sedation the patient was brought to the operating room and remained on the gurney in supine position. A timeout was performed. Anesthesia was then administered by the anesthesia service. Local anesthesia injected by myself consisting of 30 cc of one-to-one mixture 1% lidocaine and 0.5% Marcaine plain in a V-block fashion proximal to the planned incision at the left medial leg. Well-padded pneumatic tourniquet applied to the patient's left high thigh. The left lower extremity was scrubbed, prepped and draped utilizing normal aseptic technique. Left lower extremity was exanguinated with an Esmarch bandage and the tourniquet inflated to 250 mmHg. Attention was directed to the left medial calf where the flare of the myotendinous juncture of the gastrocnemius and Salus aponeurosis. Just proximal to this and at the medial leg a linear longitudinal incision was made through skin with a #15 blade with dissection carried down bluntly to crural fascia, care was taken to retract and preserve neurovascular and tendinous structures. All bleeders were ligated and cauterized as necessary. Crural fascia was incised and the interval of the gastrocnemius and psoas muscle was delineated, retaining retractor was inserted to maintain direct visualization of the gastrocnemius aponeurosis which was released sharply from medial to lateral and total with significant gapping of the aponeurosis post release when loading the ankle in dorsiflexion successfully elongating the posterior contracture of the left leg and attaining beyond 8 degrees of dorsiflexion post release. The incision was irrigated with copious amounts of sterile saline solution. Crural fascia was reapproximated with 3-0 Vicryl, subcutaneous tissue with 4-0 Vicryl and skin with 4-0 nylon. Incision was dressed with an OpSite. Attention was then directed to the left plantar fascia where medial approach was taken to perform a dexamethasone injection of 1 cc dexamethasone to the medial band of the left plantar fascia. This was covered with a Band-Aid. Tourniquet was deflated and a prompt hyperemic response was noted to the distal digits of the left foot. Patient tolerated the procedure and anesthesia well and was transferred to the PACU with vital signs stable and vascular status intact. Following a period of postoperative monitoring he will be discharged home. He was dispensed a cam boot to be worn when weightbearing and when resting to the left lower extremity to maintain ankle joint neutral. He was given at home care instructions, scheduled follow-up and my cell phone number to contact me with any postoperative questions or concerns.
[2023-08-31] MEDS: fentaNYL 50 mcg/mL INJ 2mL IVP (08:00)
[2023-08-31] MEDS: HYDROcodone-acetaminophen 5-325 mg Tablet 2 TAB PO (08:44)
--- NOTE | 2023-08-31 09:25 | ANE.PACU2 ---
Inpatient post-anesthesia follow up: Airway intact: Yes Vital signs: Temperature 97.5 F Pulse Rate 60 Respiratory Rate 17 Blood Pressure 137/86 Pulse Oximetry 96 Oxygen Delivery Me thod Room Air Oxygen Flow Rate 6 Fraction of Inspir ed Oxygen Hydration adequate: Yes Nausea and vomiting: No Pain level: 1 Mental status: Baseline
== END 2023-08-31 09:25 | disposition home or self-care (01) ==
PROVIDERS: PCP Emergency Medicine Emergency Medical Services; Visit Provider Podiatrist Foot & Ankle Surgery
PROC: (CPT 27687; principal; 2023-08-31 07:00)
PROC: (CPT 96372; 2023-08-31 07:00)
DX: M62.462 Contracture of muscle, left lower leg (principal); K21.9 Gastro-esophageal reflux disease without esophagitis; M72.2 Plantar fascial fibromatosis; B35.1 Tinea unguium; M76.72 Peroneal tendinitis, left leg
CPT/HCPCS: 20550; 27687; J0690; J1100; J2250; J2405; J2704; J3010; J3490; J7030

== ENCOUNTER → 2023-09-04 07:11 | Outpatient (BNVA) | payer OTHER, SELFPAY | PROVIDERS: PCP Emergency Medicine Emergency Medical Services; Visit Provider Podiatrist Foot & Ankle Surgery | DX: Z98.890 Other specified postprocedural states (principal) | CPT/HCPCS: 99024 ==

== ENCOUNTER → 2023-09-13 14:33 | Outpatient (BNVA) | payer OTHER, SELFPAY | PROVIDERS: PCP Emergency Medicine Emergency Medical Services; Visit Provider Podiatrist Foot & Ankle Surgery | DX: Z98.890 Other specified postprocedural states (principal) | CPT/HCPCS: 99024 ==

== ENCOUNTER → 2023-10-04 14:04 | Outpatient (BNVA) | payer OTHER, SELFPAY | PROVIDERS: PCP Emergency Medicine Emergency Medical Services; Visit Provider Podiatrist Foot & Ankle Surgery | DX: Z98.890 Other specified postprocedural states (principal) | CPT/HCPCS: 99024 ==

== ENCOUNTER 2023-10-24 08:09 | Outpatient (RCR) | payer OTHER, SELFPAY | END 2023-11-14 23:59 | disposition home or self-care (01) | LOC: SPT 08:09 | PROVIDERS: Visit Provider Podiatrist Foot & Ankle Surgery | DX: M72.2 Plantar fascial fibromatosis (principal) | CPT/HCPCS: 97035; 97161 ==

== ENCOUNTER 2023-11-15 06:00 | Outpatient (RCR) | payer OTHER, SELFPAY | END 2023-12-13 23:59 | disposition home or self-care (01) | LOC: SPT 06:00 | PROVIDERS: PCP Emergency Medicine Emergency Medical Services; Visit Provider Podiatrist Foot & Ankle Surgery | DX: Z98.890 Other specified postprocedural states (principal) | CPT/HCPCS: 97035; 97140; 97530; 99024 ==

== ENCOUNTER 2023-12-14 06:00 | Outpatient (RCR) | payer OTHER, SELFPAY | END 2024-01-13 23:59 | disposition home or self-care (01) | LOC: SPT 06:00 | PROVIDERS: PCP Emergency Medicine Emergency Medical Services; Visit Provider Podiatrist Foot & Ankle Surgery | DX: Z98.890 Other specified postprocedural states (principal) | CPT/HCPCS: 97035; 97140 ==

== ENCOUNTER → 2023-12-27 12:54 | Outpatient (BNVA) | payer OTHER, SELFPAY | PROVIDERS: PCP Emergency Medicine Emergency Medical Services; Visit Provider Podiatrist Foot & Ankle Surgery | DX: M72.2 Plantar fascial fibromatosis (principal) | CPT/HCPCS: 99213 ==

== ENCOUNTER 2024-01-14 06:00 | Outpatient (RCR) | payer OTHER, SELFPAY | END 2024-02-12 23:59 | disposition home or self-care (01) | LOC: SPT 06:00 | PROVIDERS: PCP Emergency Medicine Emergency Medical Services; Visit Provider Podiatrist Foot & Ankle Surgery | DX: Z98.890 Other specified postprocedural states (principal) | CPT/HCPCS: 97035; 97140 ==

== ENCOUNTER 2024-02-13 06:00 | Outpatient (RCR) | payer OTHER, SELFPAY | END 2024-02-19 23:59 | disposition home or self-care (01) | LOC: SPT 06:00 | PROVIDERS: PCP Emergency Medicine Emergency Medical Services; Visit Provider Podiatrist Foot & Ankle Surgery | DX: Z98.890 Other specified postprocedural states (principal) | CPT/HCPCS: 97035; 97140 ==

== ENCOUNTER 2025-04-30 12:16 | Outpatient (CLI) | payer OTHER, SELFPAY | END 2025-04-30 12:17 | disposition home or self-care (01) | LOC: LAB 12:17 | PROVIDERS: PCP Emergency Medicine Emergency Medical Services; Visit Provider Orthopaedic Surgery | DX: Z01.818 Encounter for other preprocedural examination (principal); M19.012 Primary osteoarthritis, left shoulder; M75.102 Unspecified rotator cuff tear or rupture of left shoulder, not specified as traumatic; M75.42 Impingement syndrome of left shoulder | CPT/HCPCS: 36415; 80053; 81001; 85025; 99204 ==

== ENCOUNTER 2025-05-09 16:49 | Emergency (ER) | payer OTHER, SELFPAY ==
--- OUTSIDE RECORDS SUMMARY | 2025-05-06 05:44 | XMS_ITS ---
Author Name [facility] ([place]) Organization [facility] [place] Address [address] [place] [address] Care Team Providers Care Database Programmer Name Role Phone GRUMEET CUBA Primary Care Provider Unavailabl e Selected Encounter This section includes the information on record at OR for the Encounter. Date/Time Encounter Type Encounter Description Reason Pro vider Source May 06, 2025 10:44 AM Outpatient Encounter COMMUNITY CARE CONSULT IHE Encounter Template Text not used by [place] Plan of Treatment: Future Appointments (+ 6 months) and Future Tests (+/- 45 days) The Plan of Treatment section includes future care activities for the patient from all OR treatmentfacilities. This section includes future appointments and future orders which are active, pending or scheduled. Future Appointments This section includes appointments that were scheduled to occur 6 months from the date of the Encounter, up to a maximum of 20 appointments. The data comes from all [place] treatment facilities. Appointment Date/Time Appointment Type Appointme nt Facility Name May 07, 2025 11:30 AM AMBULATORY - MEDICINE [facility] May 07, 2025 01:00 PM AMBULATORY - MEDICINE [facility] May 19, 2025 09:00 AM AMBULATORY - MEDICINE [facility] May 28, 2025 09:00 AM AMBULATORY - MEDICINE [facility] Jun 11, 2025 09:20 AM AMBULATORY - MEDICINE [facility] Jun 22, 2025 09:30 AM AMBULATORY - MEDICINE [facility] Jun 25, 2025 09:00 AM AMBULATORY - MEDICINE [facility] Sep 24, 2025 09:30 AM AMBULATORY - MEDICINE [facility] Active, Pending, and Scheduled Orders This section includes a listing of several types of active, pending, and scheduled orders, including clinic medications orders, diagnostic test orders, procedure orders and consult orders; where the start date of the order is 45 days before the date of the Encounter or 45 days after the date of theEncounter. The data comes from all [facility]. Test Date/Time Test Type Test Details Facility Name Apr 14, 2025 03:30 PM Consult Order [facility] 657A4 Cons Retail Product Demo Specialist's Choice [facility] May 06, 2025 01:36 PM Consult Order [facility] [id number] Cons Retail Product Demo Specialist's Choice [facility] Radiology Reports: +/- 30 days of the encounter Radiology Reports For cases when an order for radiology services may have been completed prior to the date of the Encounter, the report list includes the Radiology Reports that were completed up to 30 days before dateof the Encounter. For cases when an order for radiology services may have been completed after the date of the Encounter, the report list also includes the Radiology Reports that were completed up to30 days after date of the Encounter. The data comes from all [facility]. Date/Time Radiology Report Provider Source May 07, 2025 11:52 AM CHEST X-RAY, 2 VIE WS: JESSE ADAME [id number] -1970 M Exm Date: MAY 07, 2025@11:52 Req Phys: CUBA LEVI E III Pat Loc: PB-RAJI PACT MIGUEL PCP (Req'g L Img Loc: PB-XRAY [place] Service: [place] [address] (Case [id number] COMPLETE) CHEST X-RAY, 2 VIEWS (RAD Detailed) CPT:90116 Reason for Study: surgical clear. Clinical History: Report Status: Verified Date Reported: MAY 07, 2025 Date Verified: MAY 07, 2025 Technical Product Manager E-Sig: Report: PA and lateral views of the chest reveal no infiltrate, effusion or other acute intrathoracic process. Heart size is normal. Impression: No acute process Primary Interpreting Staff: CHARO JOSEPH, RADIOLOGIST (Technical Product Manager, no e-sig) /rld CHARO JOSEPH [facility] Encounter Notes: All associated encounter notes This section contains the clinical notes associated to the Encounter. Date/Time Encounter Note(s) Provider Source May 06, 2025 10:56 AM LETTERS: LOCAL TITLE: COMMUNITY CARE-REQUEST FOR SERVICES (RFS) LETTER PB STANDARD TITLE: LETTERS DATE OF NOTE: MAY 06, 2025@10:56 ENTRY DATE: MAY 06, 2025@10:56:55 AUTHOR: BUBBA GROSSMAN EXP COSIGNER: URGENCY: STATUS: COMPLETED [facility] [address] [place] [address] [place] [id number] PH: [phone] FX: [phone] Dear Provider, [place] Information: Patient Name: Jesse Adame Date of : Jun The [facility] has received the request for continuation of care. Upon review, the following determination has been made: A new consult has been entered for the requested services. Once the consult has been signed and processed a new authorization will be faxed to the appropriate office. No further action is required from you at this time. Should you have questions, please contact us at [phone]. [phone] to speak with a patient marine service operator. As a reminder, if applicable, return medical records within 30 days for routine services. Sincerely, MARGARET Singer, RN As of 04/25/21, I have been advised that no RFS will be processed unless it is signed and includes medical documentation, if documentation has previously been sent please note upon RFS. Please fax all RFS's to [phone]. BUBBA GROSSMAN [facility] May 06, 2025 10:45 AM NONVA NOTE: LOCAL TITLE: COMMUNITY CARE-REQUEST FOR SERVICE NOTE PB STANDARD TITLE: NONVA NOTE DATE OF NOTE: MAY 06, 2025@10:45 ENTRY DATE: MAY 06, 2025@10:45:33 AUTHOR: BUBBA GROSSMAN EXP COSIGNER: URGENCY: STATUS: COMPLETED COMMUNITY CARE-REQUEST FOR SERVICE NOTE PB Has ADDENDA Request for Services (RFS) documentation has been sent for scanning to [facility] Community Care Consult: COMMUNITY [id number] Consult Number: [id number] Authorization Number: [id number] Date sent to scanning: Apr A Request for Service (RFS) form [id number] has been received which includes the following: Care Requested: RFS received from Dr. Quintin Greer, [facility] for continuation of care. 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 Next scheduled appointment 05/12/25. Date VA received request: Apr Date service required (PID): Apr Requesting [facility] Provider Information: [facility] [address] [place] [address] [place] [phone] PH: [phone] FX: [phone] /es/ MARGARET CARTER, RN Care in the Community Signed: 05/06/2025 10:46 05/07/2025 ADDENDUM STATUS: COMPLETED [facility] Scanned Document - Addendum. Community Care Consult[id number] Consult Number: [id number] Authorization Number: [id number] Date sent to scanning: Apr SCANNED DOCUMENT SIGNATURE NOT REQUIRED Electronically Filed: 05/07/2025 by: FREDY REYES,BUSINESS OFFICE BUBBA GROSSMAN [facility]
--- OUTSIDE RECORDS SUMMARY | 2025-05-07 03:35 | XMS_ITS | Encounter Summary ---
Author Name [facility] of Veter[facility] ([place]) Organization [facility] [place] Address [address] [place] [address] Care Team Providers Care Electronic Device Monitor Name Role Phone GURMEET CUBA Primary Care Provider Unavailabl e Selected Encounter This section includes the information on record at [place] for the Encounter. Date/Time Encounter Type Encounter Description Reason Provider Source May 07, 2025 08:35 AM Outpatient Encounter COMMUNITY CARE CONSULT BUBBA GROSSMAN [facility] Encounter Template Text not used by [place] Plan of Treatment: Future Appointments (+ 6 months) and Future Tests (+/- 45 days) The Plan of Treatment section includes future care activities for the patient from all [place] treatmentfacilities. This section includes future appointments and future orders which are active, pending or scheduled. Future Appointments This section includes appointments that were scheduled to occur 6 months from the date of the Encounter, up to a maximum of 20 appointments. The data comes from all [place] treatment facilities. Appointment Date/Time Appointment Type Appointme nt Facility Name May 19, 2025 09:00 AM AMBULATORY - MEDICINE [facility] May 28, 2025 09:00 AM AMBULATORY - MEDICINE [facility] Jun 11, 2025 09:20 AM AMBULATORY - MEDICINE [facility] Jun 22, 2025 09:30 AM AMBULATORY - MEDICINE [facility] Jun 25, 2025 09:00 AM AMBULATORY - MEDICINE [facility] Sep 24, 2025 09:30 AM AMBULATORY - MEDICINE [place] [facility] Active, Pending, and Scheduled Orders This section includes a listing of several types of active, pending, and scheduled orders, including clinic medications orders, diagnostic test orders, procedure orders and consult orders; where the start date of the order is 45 days before the date of the Encounter or 45 days after the date of theEncounter. The data comes from all [facility]. Test Date/Time Test Type Test Details Facility Name Apr 14, 2025 03:30 PM Consult Order COMMUNITY [facility] [id number] Design Engineer's Choice [facility] May 06, 2025 01:36 PM Consult Order COMMUNITY [facility] [id number] Design Engineer's [facility] Radiology Reports: +/- 30 days of the [...] the Encounter. The data comes from all [facility]. Date/Time Radiology Report Provider Source May 07, 2025 11:52 AM CHEST X-RAY, 2 VIE WS: BERNARDA ADAME [id number] -1970 M Ex Date: MAY 07, 2025@11:52 Req Phys: CUBA LEVI E III Pat Loc: PB-RAJI PACT MIGUEL PCP (Req'g L Img Loc: PB-XRAY [place] Service: [place] [address] (Case [id number] COMPLETE) CHEST X-RAY, 2 VIEWS (RAD Detailed) CPT:29136 Reason for Study: surgical clear. Clinical History: Report Status: Verified Date Reported: MAY 07, 2025 Date Verified: MAY 07, 2025 Barrel Loader And Cleaner E-Sig: Report: PA and lateral views of the chest reveal no infiltrate, effusion or other acute intrathoracic process. Heart size is normal. Impression: No acute process Primary Interpreting Staff: CHARO JOSEPH, RADIOLOGIST (Barrel Loader And Cleaner, no e-sig) /CHARO Colon [facility] Encounter Notes: All associated encounter notes This section contains the clinical notes associated to the Encounter. Date/Time Encounter Note(s) Provider Source May 07, 2025 08:35 AM NONVA NOTE: LOCAL TITLE: COMMUNITY CARE-CARE COORDINATION PLAN NOTE 657A4 STANDARD TITLE: NONVA NOTE DATE OF NOTE: MAY 07, 2025@08:35 ENTRY DATE: MAY 07, 2025@08:36:03 AUTHOR: BUBBA GROSSMAN COSIGNER: URGENCY: STATUS: COMPLETED Appointment Management: Appointment 1 Other: Orthopedics Appointment Location: Community Provider Appointment Date: Apr Reason for Appointment: Other Specified Enthesopathies of Rt Lower Limb, excluding Foot. Provider Name: [facility] Address: [address] [place] [address] City: [place] State: [place] Zip: [address] /es/ MARGARET CARTER, RN Care in the Community Signed: 05/07/2025 08:37 BUBBA GROSSMAN [facility]
--- OUTSIDE RECORDS SUMMARY | 2025-05-07 06:30 | XMS_ITS | Encounter Summary ---
Author Name [facility] [place] [facility] [place] Address [address] [place] [address] Care Team Providers Care Surveillance Monitor Name Role Phone CUBA LEVI Primary Care Provider Unavailabl e Selected Encounter This section includes the information on record at [place] for the Encounter. Date/Time Encounter Type Encounter Description Reason Provider Source May 07, 2025 11:30 AM OFFICE O/P EST LOW 20 MIN PRIMARY CARE/MEDICINE ICD-10-CM Z01.818 Encounter for other preprocedural examination CUBA LEVI III IHE Encounter Template Text not used by [place] Assessments - Encounter Diagnoses This section includes the primary and secondary diagnoses documented for the Encounter. Date/Time Primary/Secondary Diagnosis Diagnosis Name Provider Source May 07, 2025 01:58 PM PRIMARY Encounter for other preprocedural examination CUBA LEVI III [facility] May 07, 2025 01:58 PM SECONDARY Primary osteoarthritis, left shoulder [facility]BA [facility]EVI [facility] Plan of Treatment: Future Appointments (+ 6 months) and Future Tests (+/- 45 days) The Plan of Treatment section includes future care activities for the patient from all [place] treatmentfacilities. This section includes future appointments and future orders which are active, pending or scheduled. Future Appointments This section includes appointments that were scheduled to occur 6 months from the date of the Encounter, up to a maximum of 20 appointments. The data comes from all [place] treatment facilities. Appointment Date/Time Appointment Type Appointme nt Facility Name May 19, 2025 09:00 AM AMBULATORY - MEDICINE [facility] May 28, 2025 09:00 AM AMBULATORY - MEDICINE [facility] Jun 11, 2025 09:20 AM AMBULATORY - MEDICINE [facility] Jun 22, 2025 09:30 AM AMBULATORY - MEDICINE [facility] Jun 25, 2025 09:00 AM AMBULATORY - MEDICINE [facility] Sep 24, 2025 09:30 AM AMBULATORY - MEDICINE [facility] Active, Pending, and Scheduled Orders This section includes a listing of several types of active, pending, and scheduled orders, including clinic medications orders, diagnostic test orders, procedure orders and consult orders; where the start date of the order is 45 days before the date of the Encounter or 45 days after the date of theEncounter. The data comes from all [place] treatment facilities. Test Date/Time Test Type Test Details Facility Name Apr 14, 2025 03:30 PM Consult Order [facility]57A4 Cons Dividing Machine Operator [facility] May 06, 2025 01:36 PM Consult Order [facility] 657A4 Cons Dividing Machine Operator Helper[facility] Choice [facility] Vital Signs: All taken on the encounter date This section contains inpatient and outpatient Vital Signs collected on the date of the Encounter. Date/Time Temperature Pulse Blood Pressure Respiratory Rate SP02 Pain Height Weight Body Mass Index Source May 07, 2025 01:00 PM 98 F 60 /min 131/80 mm[Hg] [facility] May 07, 2025 11:52 AM 97.7 F 56 /min 116/78 mm[Hg] 20 /min 97 % 3 192.3 lb 29 [facility] Social History: Smoking Status (Most current) and Tobacco Use (All prior to encounter date) This section includes the most current, and the historical, smoking and tobacco- related health factors from the [place] facility where the Encounter took place. Current Smoking Status This section includes the most current smoking, or tobacco-related health factor, from the [place] facility where the Encounter took place. Date/Time Current Smoking Status Comment [facility] Sep 20, 2023 02:00 PM VA-TOBACCO NEVER USED [facility] Tobacco Use History This section includes a history of the smoking, or tobacco-related health factors, that were collected on or before the date of the Encounter. The data comes from the [place] facility where the Encounter took place. Date/Time Smoking Status/Tobacco Use Comment F acility Sep 19, 2022 11:30 AM VA-TOBACCO NEVER USED [facility] February 25, 2021 11:30 AM VA-TOBACCO NEVER USED [facility] Sep 15, 2019 02:37 PM VA-TOBACCO NEVER USED [facility] Feb 02, 2011 01:32 PM LIFETIME NON-USER OF TOBACCO [facility] Dec 23, 2007 03:32 PM QUIT TOBACCO >7 YEARS AGO [facility] May 14, 2003 03:46 PM LIFETIME NON-TOBACCO USER [facility] Jul 09, 2001 03:44 PM LIFETIME NON-TOBACCO USER [facility] Radiology Reports: +/- 30 days of the [...] the Encounter. The data comes from all [place] treatment facilities. Date/Time Radiology Report Provider Source May 07, 2025 11:52 AM CHEST X-RAY, 2 VIE WS: BERNARDA ADAME [id number] -[id number] M Exm Date: MAY 07, 2025@11:52 Req Phys: CUBA LEVI III Pat Loc: PB-[facility]I PACT [facility]IGUEL PCP (Req'g L Img Loc: PB-XRAY [place] Service: [place] [address] (Case [id number] COMPLETE) CHEST X-RAY, 2 VIEWS (RAD Detailed) CPT:50945 Reason for Study: surgical clear. Clinical History: Report Status: Verified Date Reported: MAY 07, 2025 Date Verified: MAY 07, 2025 Manager Neonatal E-Sig: Report: PA and lateral views of the chest reveal no infiltrate, effusion or other acute intrathoracic process. Heart size is normal. Impression: No acute process Primary Interpreting Staff: CHARO JOSEPH, RADIOLOGIST (Manager Neonatal, no e-sig) /CHARO Colon [facility] Encounter Notes: All associated encounter notes This section contains the clinical notes associated to the Encounter. Date/Time Encounter Note(s) Provider Source May 08, 2025 12:05 PM CARDIOLOGY NOTE: LOCAL TITLE: CP EKG PB STANDARD TITLE: CARDIOLOGY NOTE DATE OF NOTE: MAY 08, 2025@12:05:24 ENTRY DATE: MAY 08, 2025@12:05:24 AUTHOR: CLINICAL,DEVICE PRO EXP COSIGNER: URGENCY: STATUS: COMPLETED PROCEDURE SUMMARY CODE: Machine Resulted DATE/TIME PERFORMED: MAY 07, 2025@11:26:4 DOCUMENT IN VISTA IMAGING SEE FULL REPORT IN VISTA IMAGING SIGNATURE NOT REQUIRED SEE SIGNATURE IN VISTA IMAGING (MUSE EKG POP) AUTO-INSTRUMENT DIAGNOSIS Procedure: [id number] 12 Lead ECG Release Status: Released Off-Line Verified Date Verified: May 08, 2025@12:05:18 25118.2 Ventricular Rate: 48 BPM 43399.3 Atrial Rate: 48 BPM 82400.4 P-R Interval: 168 ms 90503.5 QRS Duration: 86 ms 07669.6 Q-T Interval: 412 ms 95185 QTC Calculation(Bazett)368 ms 42153.12 Calculated P Clyde: 57 degrees 53554.13 Calculated R Clyde: 96 degrees 42291.14 Calculated T Clyde: 41 degrees Sinus bradycardia with occasional Premature ventricular complexes Rightward axis Borderline ECG When compared with ECG of 07-MAY-2025 11:24, Premature ventricular complexes are now Present Confirmed by BROOKE MAJANO ([id number]) on 05/08/2025 12:05:16 PM Administrative Closure: 05/08/2025 by: DEVICE PROXY SERVICE CLINICAL CLINICAL,DEVICE PROXY SERVICE CLINICAL,DEVICE PROXY SERVICE [facility] May 08, 2025 12:05 PM CARDIOLOGY NOTE: LOCAL TITLE: CP EKG PB STANDARD TITLE: CARDIOLOGY NOTE DATE OF NOTE: MAY 08, 2025@12:05:14 ENTRY DATE: MAY 08, 2025@12:05:14 AUTHOR: CLINICAL,DEVICE PRO EXP COSIGNER: URGENCY: STATUS: COMPLETED PROCEDURE SUMMARY CODE: Machine Resulted DATE/TIME PERFORMED: MAY 07, 2025@11:24:1 DOCUMENT IN VISTA IMAGING SEE FULL REPORT IN VISTA IMAGING SIGNATURE NOT REQUIRED SEE SIGNATURE IN VISTA IMAGING (MUSE EKG POP) AUTO-INSTRUMENT DIAGNOSIS Procedure: [id number] 12 Lead ECG Release Status: Released Off-Line Verified Date Verified: May 08, 2025@12:05:08 69513.2 Ventricular Rate: 49 BPM 64625.3 Atrial Rate: 43 BPM 40765.5 QRS Duration: 90 ms 27728.6 Q-T Interval: 406 ms 30608 QTC Calculation(Bazett)366 ms 36400.13 Calculated R Clyde: 94 degrees 30106.14 Calculated T Clyde: 34 degrees Undetermined rhythm Rightward axis Borderline ECG When compared with ECG of 20-AUG-2023 11:30, Current undetermined rhythm precludes rhythm comparison, needs review QT has shortened Confirmed by BROOKE MAJANO ([id number]) on 05/08/2025 12:05:07 PM Administrative Closure: 05/08/2025 by: DEVICE PROXY SERVICE CLINICAL CLINICAL,DEVICE PROXY SERVICE CLINICAL,DEVICE PROXY SERVICE [facility] May 07, 2025 01:46 PM PRIMARY CARE PROGR ESS NOTE: LOCAL TITLE: PRIMARY CARE CLINIC PROGRESS NOTE PB STANDARD TITLE: PRIMARY CARE PROGRESS NOTE DATE OF NOTE: MAY 07, 2025@13:46 ENTRY DATE: MAY 07, 2025@13:46:47 AUTHOR: CUBA LEVI III EXP COSIGNER: URGENCY: STATUS: COMPLETED CC: Surgical clearance for left shoulder surgery HPI: Very pleasant 54-year-old gentleman comes in today for surgical clearance. He is undergone numerous surgeries without complication. He has no personal or family history of difficulty with anesthesia. He has no significant medical problems which might interfere with surgery and is not on any blood thinners etc. He is having significant pain and dysmobility in his left shoulder and request surgical intervention under orthopedic auspices. 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) 2) Low back pain (SNOMED CT 107627394) 3) Dyspepsia * (ICD-9-CM 536.8) 4) Otitis media (SNOMED CT 30247323) 5) Hyperlipidemia (SNOMED CT 12814117) 6) Chronic purulent otitis media (SNOMED CT 33075240) 7) Constipation 8) RBBB - Right bundle branch block 9) Gastroesophageal reflux disease without esophagitis 10) Renal stone 11) COVID-19 12) Diverticulitis 13) Sleep Apnea (SCT 26463890) 14) Cervicalgia 15) Posttraumatic stress disorder 16) Exposure to Potentially Hazardous Substance ([facility] [id number]) Active Outpatient Medications (including Supplies): Active Outpatient Medications Status 1) CHLORHEXIDINE GLUCONATE 4% TOP LIQUID WASH TO AFFECTED ACTIVE AREA(S) EVERY WEEK ON SCALP/NECK, LEAVE ON FOR 15-20 MINUTES BEFORE RINSING OFF - ONCE A WEEK. 2) CLINDAMYCIN PHOSPHATE 1% TOP SOLN APPLY TO AFFECTED ACTIVE AREA(S) TWICE A DAY TO BUMPS ON SCALP AND POSTERIOR NECK THEY ARISE. 3) DICLOFENAC NA 1% TOP GEL APPLY 2 GM TO AFFECTED AREA(S) FOUR ACTIVE TIMES A DAY NO MORE THAN 16 GM/DAY TO ANY LOWER EXTREMITY JOINT. NO MORE THAN 8 GM/DAY TO ANY UPPER EXTREMITY JOINT. MAX 32GM/DAY OVER ALL JOINTS.(MEASURE DOSE WITH RULER INSIDE BOX) Indication: FOR PAIN 4) KETOCONAZOLE 2% SHAMPOO USE SHAMPOO TO AFFECTED AREA(S) TWO ACTIVE TO THREE TIMES PER WEEK MASSAGING INTO SCALP AND FACE LIKE LOTION, LEAVE ON FOR 15-20 MINUTES THEN RINSE OUT. 5) MELOXICAM 7.5MG TAB TAKE ONE TABLET BY MOUTH ONCE A DAY ACTIVE Indication: FOR PAIN 6) METRONIDAZOLE 0.75% TOP GEL APPLY SPARINGLY TO AFFECTED ACTIVE AREA(S) TWICE A DAY APPLY TO CENTRAL FACE. (TOPICAL USE ONLY) 7) PANTOPRAZOLE NA 40MG EC TAB TAKE ONE TABLET BY MOUTH TWICE A ACTIVE DAY TAKE 30 MINUTES BEFORE MEAL(S) Indication: FOR GASTROESOPHAGEAL REFLUX DISEASE 8) TRAMADOL HCL 50MG TAB TAKE 1 TABLET BY MOUTH THREE TIMES A ACTIVE DAY NEEDED FOR PAIN (NOT TO EXCEED 3 TABLETS PER DAY) THIS QUANTITY MUST LAST 30 DAYS OR MORE 9) TRAZODONE HCL 100MG TAB TAKE ONE AND ONE-HALF TABLETS BY ACTIVE MOUTH AT BEDTIME Indication: FOR INSOMNIA OBJECTIVE: Vital Signs Temperature: 98 F [36.7 C] (05/07/2025 13:00) Respiratory Rate: 20 (05/07/2025 11:52) Pulse Rate: 60 (05/07/2025 13:00) Blood Pressure: 131/80 (05/07/2025 13:00) HT: 68.0 in [172.7 cm] (09/23/2024 13:15) WT: 192.3 lb [87.23 kg] (05/07/2025 11:52) BMI: 29.3 97% (05/07/2025 11:52) Physical Exam General: NAD noted, A&Ox3, pleasant, appears stated age HEENT: NCAT, oropharynx clear, no point tenderness to cervical spine or gross deformity, no bruits are heard Heart: RRR, no murmur Resp: Lungs CTA bilaterally, respirations even and unlabored Abdomen: Soft, non-distended, non-tender Ext: No tremor, edema or obvious deformity Neuro: Grossly intact Psych: Affect normal, answers questions appropriately throughout visit Chest x-ray shows no acute abnormalities Reason for Study: surgical clear. Clinical History: Report Status: Verified Date Reported: MAY 07, 2025 Date Verified: MAY 07, 2025 Manager Neonatal E-Sig: Report: PA and lateral views of the chest reveal no infiltrate, effusion or other acute intrathoracic process. Heart size is normal. Impression: No acute process Electrocardiogram shows a sinus bradycardia with marked sinus arrhythmia and rightward axis. QTc is 393 ms and ventricular rate is 57 with a LA interval of 17.2 ms no ectopy or acute changes are noted. An additional EKG was performed and no significant change from before noted other than occasional PVC. Assessment/Plan: Surgical clearance for orthopedic surgerylaboratory was done at surgical office. So long as this is an order and neither the radiologist nor EKG over read are see any significant abnormalities patient is cleared for surgery. Follow-up: As planned needed All questions answered; agrees to plan of care. Follow up as listed above, annually, and as needed. Keep all appointments. Medications Reconciled. See AVS given to . Time spent 28 minutes. /rosie/ MD KAUR DIALLO III [facility] Signed: 05/07/2025 13:59 CUBA LEVI III [facility] May 07, 2025 11:56 AM PRIMARY CARE NURSI HOMA NOTE: LOCAL TITLE: PRIMARY CARE NURSING PROGRESS NOTE (TEXT) NURSING P STANDARD TITLE: PRIMARY CARE NURSING NOTE DATE OF NOTE: MAY 07, 2025@11:56 ENTRY DATE: MAY 07, 2025@11:57:02 AUTHOR: ION العراقي COSIGNER: URGENCY: STATUS: COMPLETED Established Patient BERNARDA ADAME IS A 54 YEAR OLD MALE BEING SEEN IN CLINIC MAY 07, 2025. = = REASON FOR VISIT: Here for surgical clearance, scheduled for surgery to left shoulder on Jun 03. Are you receiving care any where other than the [facility]? No HEALTH AND SURGICAL HISTORY: Does patient report using home oxygen? CURRENT ACTIVE MEDICATIONS FOR REVIEW: If the list for review does not include a component, then it was not applicable to this patient. Allergies/ADRs (Tool #5) FACILITY ALLERGY/ADR -------- No Remote Allergy/ADR Data available for this patient [facility] Med. Reconciliation (Tool #1) INCLUDED IN THIS LIST: Alphabetical list of active outpatient prescriptions dispensed from this VA (local) and dispensed from another VA or DoD facility (remote) as well as inpatient orders (local pending and active), local clinic medications, locally documented non-VA medications, and local prescriptions that have or been discontinued in the past 90 days. Non-VA Meds Last Documented On: Data not found NOTE The display of VA prescriptions dispensed from another VA or DoD facility (remote) is limited to active outpatient prescription entries matched to National Drug File at the originating site and may not include some items such as investigational drugs, compounds, etc. NOT INCLUDED IN THIS LIST: Medications self-entered by the patient into personal health records (i.e. [facility]) are NOT included in this list. Non-VA medications documented outside this [place], remote inpatient orders (regardless of status) and remote clinic medications are NOT included in this list. The patient and provider must always discuss medications the patient is taking, regardless of where the medication was dispensed or obtained. OUTPT CHLORHEXIDINE GLUCONATE 4% TOP LIQUID (Status = Active) WASH TO AFFECTED AREA(S) EVERY WEEK ON SCALP/NECK, LEAVE ON FOR 15-20 MINUTES BEFORE RINSING OFF - ONCE A WEEK. Rx# [id number] Last Released: 11/18/24 Qty/Days Supply: 240/30 Rx Expiration Date: 11/12/25 Refills Remainin OUTPT CLINDAMYCIN PHOSPHATE 1% TOP SOLN (Status = Active) APPLY TO AFFECTED AREA(S) TWICE A DAY TO BUMPS ON SCALP AND POSTERIOR NECK THEY ARISE. Rx# [id number] Last Released: 11/12/24 Qty/Days Supply: 60/30 Rx Expiration Date: 11/12/25 Refills Remainin OUTPT DICLOFENAC NA 1% TOP GEL (Status = Active) APPLY 2 GM TO AFFECTED AREA(S) FOUR TIMES A DAY FOR PAIN NO MORE THAN 16 GM/DAY TO ANY LOWER EXTREMITY JOINT. NO MORE THAN 8 GM/DAY TO ANY UPPER EXTREMITY JOINT. MAX 32GM/DAY OVER ALL JOINTS.(MEASURE DOSE WITH RULER INSIDE BOX) Rx# [id number] Last Released: 12/11/24 Qty/Days Supply: 300/90 Rx Expiration Date: 12/11/25 Refills Remainin Indication: FOR PAIN OUTPT KETOCONAZOLE 2% SHAMPOO (Status = Active) USE SHAMPOO TO AFFECTED AREA(S) TWO TO THREE TIMES PER WEEK MASSAGING INTO SCALP AND FACE LIKE LOTION, LEAVE ON FOR 15-20 MINUTES THEN RINSE OUT. Rx# [id number] Last Released: 11/18/24 Qty/Days Supply: 120/30 Rx Expiration Date: 11/12/25 Refills Remainin OUTPT MELOXICAM 7.5MG TAB (Status = Active) TAKE ONE TABLET BY MOUTH ONCE A DAY FOR PAIN Rx# [id number] Last Released: 12/12/24 Qty/Days Supply: Rx Expiration Date: 12/11/25 Refills Remainin Indication: FOR PAIN OUTPT METRONIDAZOLE 0.75% TOP GEL (Status = Active) APPLY SPARINGLY TO AFFECTED AREA(S) TWICE A DAY APPLY TO CENTRAL FACE. (TOPICAL USE ONLY) Rx# [id number] Last Released: 10/31/24 Qty/Days Supply: 45 Rx Expiration Date: 08/22/25 Refills Remainin OUTPT PANTOPRAZOLE NA 40MG EC TAB (Status = Active) TAKE ONE TABLET BY MOUTH TWICE A DAY FOR GASTROESOPHAGEAL REFLUX DISEASE TAKE 30 MINUTES BEFORE MEAL(S) Rx# [id number] Last Released: 03/25/25 Qty/Days Supply: 180 Rx Expiration Date: 03/25/26 Refills Remainin Indication: FOR GASTROESOPHAGEAL REFLUX DISEASE OUTPT TIZANIDINE HCL 4MG TAB (Status = ) TAKE ONE TABLET BY MOUTH THREE TIMES A DAY Rx# [id number] Last Released: 02/13/25 Qty/Days Supply: Rx Expiration Date: 03/12/25 Refills Remainin OUTPT TRAMADOL HCL 50MG TAB (Status = Discontinued) TAKE 1 TABLET BY MOUTH THREE TIMES A DAY Rx# [id number] Last Released: 04/02/25 Qty/Days Supply: Rx Expiration Date: 08/13/25 Refills Remainin OUTPT TRAMADOL HCL 50MG TAB (Status = Active) TAKE 1 TABLET BY MOUTH THREE TIMES A DAY NEEDED FOR PAIN (NOT TO EXCEED 3 TABLETS PER DAY) THIS QUANTITY MUST LAST 30 DAYS OR MORE Rx# [id number] Last Released: 05/07/25 Qty/Days Supply: Rx Expiration Date: 05/13/25 Refills Remainin OUTPT TRAZODONE HCL 100MG TAB (Status = Active) TAKE ONE AND ONE-HALF TABLETS BY MOUTH AT BEDTIME FOR INSOMNIA Rx# [id number] Last Released: 12/02/24 Qty/Days Supply: 135/ Rx Expiration Date: 09/24/25 Refills Remainin Indication: FOR INSOMNIA SUPPLIES PHARMACY TERMS AND POSSIBLE PATIENT ACTIONS INPT = [place] inpatient order IV = [place] intravenous medication OUTPT = [place] outpatient prescription PHARMACY POSSIBLE PATIENT TERMS EXPLANATION ACTIONS -------- ---- ACTIVE A prescription that can be If you have refills, filled at the local [place] pharmacy. you may request a refill of this prescription from your [place] pharmacy. CLINIC A medication you received during If you have questions a visit to a [place] clinic or about this medication emergency department. contact your [place] healthcare team. DISCONTINUED A prescription your provider has Contact your VA stopped. It is no longer healthcare team if you available to be sent to you or need more of this picked up at the [place] pharmacy medication. window. A prescription which is too old Contact your VA to fill. This does not refer to healthcare team if you the expiration date of the need more of this medication in the container. medication. NON-VA A medication that came from If this medication someplace other than a VA information is pharmacy. This may be a incorrect or out of prescription from either the VA date, please tell your or non VA providers that was VA healthcare team. filled outside the VA. Or, it may be an xqey-lto-zvrchav (OTC), herbal, dietary supplements or sample medication. ON HOLD An active prescription that will Contact your VA not be filled until pharmacy pharmacy when you need resolves the issue. more of this medication. PARKED An active prescription that will Contact your VA not be filled until the patient pharmacy when you need requests it. this medication. PENDING This prescription order has been If you have been sent to the pharmacy for review instructed to start and is not ready yet. this medication now, contact your VA pharmacy. SUSPENDED An active prescription that is Contact your [place] not scheduled to be filled yet. pharmacy if you need You should receive it before this medication now. you run out. Medication list reviewed with Patient IS PATIENT TAKING ANY OVER THE COUNTER MEDICATIONS, SUCH VITAMINS OR HERBAL SUPPLEMENTS, INCLUDING ANY MEDICATIONS PRESCRIBED BY ANOTHER PHYSICIAN? No Does patient have any new allergies to report since last visit? VITALS: TEMPERATURE: 97.7 F [36.5 C] (05/07/2025 11:52) BP: 116/78 (05/07/2025 11:52) RESP: 20 (05/07/2025 11:52) PULSE: 56 (05/07/2025 11:52) HT: 68.0 in [172.7 cm] (09/23/2024 13:15) WT: 192.3 lb [87.23 kg] (05/07/2025 11:52) BMI: 29.3 PAIN ASSESSMENT: (Most Recent Pain Score in Vitals Package: 3 (05/07/2025 11:52) ) The patient indicated that they and their close contacts have not traveled outside of the [place] in the past 21 days. The patient reports the following symptoms: No symptoms present The patient is not immunocompromised. The patient does not report having a history of Multi Drug Resistant Organism (MDRO) within the last five years. The patient does not report having been exposed to measles, chickenpox, or zoster in last 30 days. STRESS: Thank you for your service. Now let us serve you. At the [facility], we strive to provide you with exceptional health care that improves your health and well-being. Are you feeling sad, empty, or depressed? No Do you need to talk about things in your life that worry you or cause you stress? No Do you need to talk about personal problems, family problems, alcohol use, drug use, or mental or emotional illness? No SUICIDE SCREENING: The patient was asked, Over the past two weeks, how often have you been bothered by thoughts that you would be better off or of hurting yourself in some way? Not At All SPIRITUAL ASSESSMENT: Are there voodoo practices or spiritual concerns you want the assistant administrator, your physician, and other health care team members to immediately know about? Patient advised to call the clinic for any concerns, questions, or symptoms. Patient and/or caregiver verbalized understanding of plan of care. Pain Assessment: - PAIN ASSESSMENT: .. Patient is reporting some pain. PAIN SCORE TODAY: 3 Patient's self identified pain goal: 0 Patient/Nurse Interview: * * Patient states that questions were answered in a way that was easily understood. /rosie/ ION العراقي LPN Signed: 05/07/2025 11:59 ION العراقي [facility]
--- OUTSIDE RECORDS SUMMARY | 2025-05-07 08:00 | XMS_ITS | Encounter Summary ---
Author Name [facility] Organization [facility] Address [address] [place] [address] Care Team Providers Care Hospitality Director Name Role Phone LEVICUBA Primary Care Provider Unavailabl e Selected Encounter This section includes the information on record at ID for the Encounter. 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 Date/Time Primary/Secondary Diagnosis Diagnosis Name Provider Source May 07, 2025 01:17 PM PRIMARY Segmental and somatic dysfunction of cervical region [facility] May 07, 2025 01:17 PM SECONDARY Cervicalgia [facility] May 07, 2025 01:17 PM SECONDARY Oth intvrt disc degen, lumbosacr w discog bck & lw extrm pn [facility] May 07, 2025 01:17 PM SECONDARY Pain in thoracic spine [facility] May 07, 2025 01:17 PM SECONDARY Segmental and somatic dysfunction of lumbar region [facility] May 07, 2025 01:17 PM SECONDARY Segmental and somatic dysfunction of pelvic region JASSI F[facility]LEYLAS [facility] May 07, 2025 01:17 PM SECONDARY Segmental and somatic dysfunction of thoracic region ROBYN FARLEY [facility] Plan of Treatment: Future Appointments (+ 6 months) and Future Tests (+/- 45 days) The Plan of Treatment section includes [facility] care activities [facility] the [facility] This section includes future appointments and future orders which are active, pending or scheduled. Future Appointments This section includes appointments that were scheduled to occur 6 months from the date of the Encounter, up to a maximum of 20 appointments. The data comes from all ID treatment facilities. Appointment Date/Time Appointment Type Appointme nt Facility Name May 19, 2025 09:00 AM AMBULATORY - MEDICINE [facility] May 28, 2025 09:00 AM AMBULATORY MEDICINE [facility] Jun 11, 2025 09:20 AM AMBULATORY MEDICINE [facility] Jun 22, 2025 09:30 AM AMBULATORY MEDICINE [facility] Jun 25, 2025 09:00 AM AMBULATORY MEDICINE [facility] Sep 24, 2025 09:30 AM AMBULATORY MEDICINE [facility] Active, Pending, and Scheduled Orders This section includes a listing of several types of active, pending, and scheduled orders, including clinic medications orders, diagnostic test orders, procedure orders and consult orders; where the start date of the order is 45 days before the date of the Encounter or 45 days after the date of theEncounter. The data comes from all [facility]. Test Date/Time Test Type Test Details Facility Name Apr 14, 2025 03:30 PM Consult Order [facility] 657A4 Cons Table Games Supervisor's Choice [facility] May 06, 2025 01:36 PM Consult Order [facility] 657A4 Cons Table Games Supervisor's Choice [facility] [place] Vital Signs: All taken on the encounter date This section contains inpatient and outpatient Vital Signs collected on the date of the Encounter. Date/Time Temperature Pulse Blood Pressure Respiratory Rate SP02 Pain Height Weight Body Mass Index Source May 07, 2025 01:00 PM 98 F 60 /min 131/80 mm[Hg] [facility] May 07, 2025 11:52 AM 97.7 F 56 /min 116/78 mm[Hg] 20 /min 97 % 3 192.3 lb 29 [facility] Social History: Smoking Status (Most current) and Tobacco Use (All prior to encounter date) This section includes the most current, and the historical, smoking and tobacco- related health factors from the ID facility where the Encounter took place. Current Smoking Status This section includes the most current smoking, or tobacco-related health factor, from the ID facility where the Encounter took place. Date/Time Current Smoking Status Comment Facil ity Sep 20, 2023 02:00 PM VA-TOBACCO NEVER USED [facility] Tobacco Use History This section includes a history of the smoking, or tobacco-related health factors, that were collected on or before the date of the Encounter. The data comes from the ID facility where the Encounter took place. Date/Time Smoking Status/Tobacco Use Comment F acility Sep 19, 2022 11:30 AM VA-TOBACCO NEVER USED [facility] February 25, 2021 11:30 AM VA-TOBACCO NEVER USED [facility] Sep 15, 2019 02:37 PM VA-TOBACCO NEVER USED [facility] Feb 02, 2011 01:32 PM LIFETIME NON-USER OF TOBACCO [facility] Dec 23, 2007 03:32 PM QUIT TOBACCO >7 YEARS AGO [facility] May 14, 2003 03:46 PM LIFETIME NON-TOBACCO USER [facility] Jul 09, 2001 03:44 PM LIFETIME NON-TOBACCO USER [facility] Radiology Reports: +/- 30 days of [...] the Encounter. The data comes from all ID treatment facilities. Date/Time Radiology Report Provider Source May 07, 2025 11:52 AM CHEST X-RAY, 2 VIE WS: BERNARDA ADAME [id number] -1970 M Exm Date: MAY 07, 2025@11:52 Req Phys: CUBA LEVI III Pat Loc: PB-RAJI PACT MIGUEL PCP (Req'g L Img Loc: PB-XRAY [place] Service: [place] [address] (Case [id number] COMPLETE) CHEST X-RAY, 2 VIEWS (RAD Detailed) CPT:97773 Reason for Study: surgical clear. Clinical History: Report Status: Verified Date Reported: MAY 07, 2025 Date Verified: MAY 07, 2025 Banana Grader E-Sig: Report: PA and lateral views of the chest reveal no infiltrate, effusion or other acute intrathoracic process. Heart size is normal. Impression: No acute process Primary Interpreting Staff: CHARO JOSEPH, RADIOLOGIST (Banana Grader, no e-sig) /CHARO Colon [facility] Encounter Notes: All associated encounter notes This section contains the clinical notes associated to the Encounter. Date/Time Encounter Note(s) Provider Source May 07, 2025 01:02 PM CHIROPRACTIC NOTE: LOCAL TITLE: CHIROPRACTIC FOLLOW UP NOTE PB STANDARD TITLE: CHIROPRACTIC NOTE DATE OF NOTE: MAY 07, 2025@13:02 ENTRY DATE: MAY 07, 2025@13:03:02 AUTHOR: ROBYN FARLEY COSIGNER: URGENCY: STATUS: COMPLETED CHIROPRACTIC FOLLOW-UP VISIT Patient's language preference for health information: Armenian Other Communication Methods Needed: SUBJECTIVE: The King [place]mon is a 54 year old MALE being seen in the Chiropractic clinic for follow-up visit. The states he will have left shoulder surgery on 06/08/25. He describes his neck as very painful and into the left shoulder region. Today, the rates his pain as a 6/10, due to neck and back pain. PAST MEDICAL HISTORY: see problem list SOCIO-ECONOMIC HISTORY: Tobacco: No Prior Tobacco Use Status Available Alcohol: ____ ALLERGIES/ADVERSE REACTIONS: Patient has answered NKA OBJECTIVE: MOVEMENT/POSTURE: The ambulates without issue. SEGMENTAL DYSFUNCTION: Joint dysfunction was noted at C2, C5, T2, T4, T10, L5, and the right SI joint. PALPATION: Tight and tender muscles of the lumbosacral paraspinal musculature. Bone landmarks tender to palpation: C2, C5, T2, T4, T10, L5, and the right PSIS. ACTIVE RANGE OF MOTION: Moderate restriction in all planes of motion of the lumbar spine. REVIEW OF DIAGNOSTIC IMAGING: MRI SPINE LUMBAR W/O CONT Reason for Study: low back pain Date Reported: JUN 03, 2018 COMPARISON: MRI lumbar spine May 27, 2015 FINDINGS: Conus: The conus terminates at approximately L1. Spinal Cord and Cauda Equina: The visualized cord is normal in morphology and signal. Normal appearance of the cauda equina. Alignment: Normal. Marrow Signal: Heterogeneous, similar prior. Segmentation: Vertebral body numbering is such that there is a rudimentary disc at S1-2. Vertebral Body Heights: Normal. Paraspinal Soft Tissues: Unremarkable. Retroperitoneal Soft Tissues: Unremarkable. T12-L1: Unremarkable. L1-L2: Unremarkable. L2-L3: Unremarkable. L3-L4: Mild bilateral facet hypertrophy. No spinal canal or neuroforaminal stenosis. L4-L5: Small central disc protrusion, mildly increased compared to prior. Mild bilateral facet hypertrophy. No spinal canal or neuroforaminal stenosis. L5-S1: Mild degenerative disc disease with small posterior disc bulge and central annular fissure, similar prior. Moderate right and mild left facet hypertrophy with associated ligament flavum thickening. No spinal canal stenosis. Moderate right neuroforaminal stenosis. Impression: Mild degenerative change of the lumbar spine , similar to prior. There is moderate right neuroforaminal stenosis at L5-S1. 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 PLAN: This is the second follow up treatment for the of a planned six treatments. Due to the persistent neck and back pain, we will treat The King Salmon once every two weeks for six treatments. Prognosis: Fair Today's treatment of the consisted of chiropractic spinal adjustment of the cervical spine (supine) and thoracic spine (prone) using diversified technique and adjustment of the lumbar spine (prone) and pelvis (prone) using Mills technique. The treatment was well tolerated by the . GOALS: The goals of treatment include: 1) The reduction of symptomatology. 2) Instructing the in home exercises to improve core strength and flexibility. Additional lasting improvement beyond what was seen after the initial and/or continued trial is not expected. King Salmon has reported meaningful improvement of reasonable duration but has plateaued and reached MMI from wound care technician. had experience degradation in functional gains after some period when wound care technician was withdrawn. All other indicated medical, psychological, behavioral, and social interventions have been tried or considered. Appropriate active care and self-management strategies are part of the overall treatment plan and patients are compliant with recommendations. /rosie/ [facility] Signed: 05/07/2025 13:16 [facility]
--- OUTSIDE RECORDS SUMMARY | 2025-05-07 09:37 | XMS_ITS | Encounter Summary ---
Author Name [facility]) Organization [facility] [place] [facility] [place] Address [address] [place] [address] Care Team Providers Care Way Inspector Name Role Phone LEVI, CUBA Primary Care Provider Unavailabl e Selected Encounter This section includes the information on record at [facility] for the Encounter. Date/Time Encounter Type Encounter Description Reason Pro vider Source May 07, 2025 02:37 PM Outpatient Encounter PRIMARY CARE/MEDICINE I[facility] Encounter Template Text not used by [place] Plan of Treatment: Future Appointments (+ 6 months) and Future Tests (+/- 45 days) The Plan of Treatment section includes future care activities for the patient from all [place] treatmentfacilities. This section includes future appointments and future orders which are active, pending or scheduled. Future Appointments This section includes appointments that were scheduled to occur 6 months from the date of the Encounter, up to a maximum of 20 appointments. The data comes from all [place] treatment facilities. Appointment Date/Time Appointment Type Appointme nt Facility Name May 19, 2025 09:00 AM [facility]ATORY [place] [facility] [facility] May 28, 2025 09:00 AM AMBULATORY - MEDICINE [facility] Jun 11, 2025 09:20 AM AMBULATORY - MEDICINE [facility] Jun 22, 2025 09:30 AM AMBULATORY - MEDICINE [facility] Jun 25, 2025 09:00 AM AMBULATORY - MEDICINE [facility] Sep 24, 2025 09:30 AM [facility] Active, Pending, and Scheduled Orders This section includes a listing of several types of active, pending, and scheduled orders, including clinic medications orders, diagnostic test orders, procedure orders and consult orders; where the start date of the order is 45 days before the date of the Encounter or 45 days after the date of theEncounter. The data comes from all [place] treatment facilities. Test Date/Time Test Type Test Details Facility Name Apr 14, 2025 03:30 PM Consult Order [facility] 657A4 Cons Novelty Chain Maker's Choice [facility] May 06, 2025 01:36 PM Consult Order [facility] 657A4 Cons Novelty Chain Maker's Choice [place] [facility] Vital Signs: All taken on the encounter date This section contains inpatient and outpatient Vital Signs collected on the date of the Encounter. Date/Time Temperature Pulse Blood Pressure Respiratory Rate SP02 Pain Height Weight Body Mass Index Source May 07, 2025 01:00 PM 98 F 60 /min 131/80 mm[Hg] [facility] [place] [facility] May 07, 2025 11:52 AM 97.7 F 56 /min 116/78 mm[Hg] 20 /min 97 % 3 192.3 lb 29 [facility] Social History: Smoking Status (Most current) and Tobacco Use (All prior to encounter date) This section includes the most current, and the historical, smoking and tobacco- related health factors from the [place] facility where the Encounter took place. Current Smoking Status This section includes the most current smoking, or tobacco-related health factor, from the [place] facility where the Encounter took place. Date/Time Current Smoking Status Comment Facil ity Sep 20, 2023 02:00 PM VA-TOBACCO NEVER USED [place] [place] [facility] Tobacco Use History This section includes a history of the smoking, or tobacco-related health factors, that were collected on or before the date of the Encounter. The data comes from the [place] facility where the Encounter took place. Date/Time Smoking Status/Tobacco Use Comment F acility Sep 19, 2022 11:30 AM VA-TOBACCO NEVER USED [facility] February 25, 2021 11:30 AM VA-TOBACCO NEVER USED [facility] [place] Sep 15, 2019 02:37 PM VA-TOBACCO NEVER USED [facility] Feb 02, 2011 01:32 PM LIFETIME NON-USER OF TOBACCO [facility] [place] Dec 23, 2007 03:32 PM QUIT TOBACCO >7 YEARS AGO [facility] May 14, 2003 03:46 PM LIFETIME NON-TOBACCO USER [facility] Jul 09, 2001 03:44 PM LIFETIME NON-TOBACCO USER [facility] Radiology Reports: +/- 30 days of the [...] the Encounter. The data comes from all [place] treatment facilities. Date/Time Radiology Report Provider Source May 07, 2025 11:52 AM CHEST X-RAY, 2 VIE WS: BERNARDA ADAME [id number] -1970 M Exm Date: MAY 07, 2025@11:52 Req Phys: CUBA LEVI III Pat Loc: PB-RAJI PACT [facility]IGUEL PCP (Req'g L Img Loc: [facility] [place] Service: [place] [address] (Case [id number] COMPLETE) CHEST X-RAY, 2 VIEWS (RAD Detailed) CPT:15579 Reason for Study: surgical clear. Clinical History: Report Status: Verified Date Reported: MAY 07, 2025 Date Verified: MAY 07, 2025 Strategies Analyst E-Sig: Report: PA and lateral views of the chest reveal no infiltrate, effusion or other acute intrathoracic process. Heart size is normal. Impression: No acute process Primary Interpreting Staff: CHARO JOSEPH RADIOLOGIST (Strategies Analyst, no e-sig) /CHARO Colon [facility] Encounter Notes: All associated encounter notes This section contains the clinical notes associated to the Encounter. Date/Time Encounter Note(s) Provider Source May 08, 2025 12:05 PM CARDIOLOGY NOTE: LOCAL TITLE: CP EKG PB STANDARD TITLE: CARDIOLOGY NOTE DATE OF NOTE: MAY 08, 2025@12:05:23 ENTRY DATE: MAY 08, 2025@12:05:23 AUTHOR: CLINICAL,DEVICE PRO EXP COSIGNER: URGENCY: STATUS: COMPLETED PROCEDURE SUMMARY CODE: Machine Resulted DATE/TIME PERFORMED: MAY 07, 2025@11:24:5 DOCUMENT IN VISTA IMAGING SEE FULL REPORT IN VISTA IMAGING SIGNATURE NOT REQUIRED SEE SIGNATURE IN VISTA IMAGING (MUSE EKG POP) AUTO-INSTRUMENT DIAGNOSIS Procedure: [id number] 12 Lead ECG Release Status: Released Off-Line Verified Date Verified: May 08, 2025@12:05:17 79041.2 Ventricular Rate: 57 BPM 07660.3 Atrial Rate: 57 BPM 52205.4 P-R Interval: 172 ms 88265.5 QRS Duration: 92 ms 97174.6 Q-T Interval: 404 ms 81962 QTC Calculation(Bazett)393 ms 00310.12 Calculated P [place]: 57 degrees 21921.13 Calculated R [place]: 93 degrees 12083.14 Calculated T [place]: 36 degrees Sinus bradycardia with marked sinus arrhythmia Rightward axis Borderline ECG When compared with ECG of 07-MAY-2025 11:24, Previous ECG has undetermined rhythm, needs review Confirmed by BROOKE MAJANO ([id number]) on 05/08/2025 12:05:11 PM Administrative Closure: 05/08/2025 by: DEVICE PROXY SERVICE CLINICAL CLINICAL,DEVICE PROXY SERVICE CLINICAL,DEVICE PROXY SERVICE [facility]
--- OUTSIDE RECORDS SUMMARY | 2025-05-09 11:54 | XMS_ITS | Continuity of Care Document ---
Author Name [facility] Organization [facility] Care Team Providers Care Customer Care Professional Name Role Phone [facility] Unavailable Unavailable Problems Combined list of problems from Department of Defense and Veterans Affairs facilities. It does not include entries that were removed or entered in error. 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 [place] [facility] Diverticulitis Active Condition February 122020 Entered By: MONICA GAR Comment: With perforation , managed medically, February 2021. [place] [facility] Dyspepsia * (ICD-9-CM 536.8) Active Condition [place] [facility] Exposure to Potentially Hazardous Substance (SCT 850711641007195) Active Condition [place] [facility] Gastroesophageal reflux disease without esophagitis Active [place] [facility] Hyperlipidemia (SNOMED CT 24395293) Active [place] [facility] Low back pain (SNOMED CT 316741377) Active Condition [place] [facility] Otitis media (SNOMED CT 75359529) Active Condition [place] [facility] Posttraumatic stress disorder Active Condition [place] [facility] RBBB - Right bundle branch block Active Condition [place] [facility] Renal stone Active Condition Jun 09, 2020 Entered By: MONICA GAR Comment: 05/2020. [place] [facility] Sleep Apnea (SCT 90481672) Active Condition March 07, 2021 Entered By: MONICA GAR Comment: Moderate by Sleep Study 2020. [place] [facility] Lower abdominal pain Inactive Condition 02/04/2021 [place] [facility] Other General Medical Examination for Administrative Purposes Inactive Condition 08/18/2020 [place] [facility] Diagnosis: ICD-10-CM M99.01 Segmental and somatic dysfunction of cervical region Active Diagnosis [facility] Diagnosis: ICD-10-CM Z01.818 Encounter for other preprocedural examination Active Diagnosis [facility] Diagnosis: ICD-10-CM K21.9 Gastro-esophageal reflux disease without esophagitis [facility] Diagnosis: ICD-10-CM M25.512 Pain in left shoulder Active Diagnosis [facility] Diagnosis: ICD-10-CM M25.511 Pain in right shoulder Active Diagnosis [facility] Diagnosis: ICD-10-CM K02.52 Dental caries on pit and fissure surfc penetrat into dentin Active Diagnosis CARLEN[facility] GUILL[facility] Diagnosis: ICD-10-CM Z48.01 Encounter for change or removal of surgical wound dressing Active Diagnosis [facility] Diagnosis: ICD-10-CM S46.812D Strain of musc/fasc/tend at shldr/up arm, left arm, subs Active Diagnosis [facility] Diagnosis: ICD-10-CM Z00.01 Encounter for general adult medical exam w abnormal findings Active Diagnosis [facility] Diagnosis: ICD-10-CM Z71.89 Other specified counseling Active Diagnosis [facility] Diagnosis: ICD-10-CM G47.00 Insomnia, unspecified Active Diagnosis [facility] Diagnosis: ICD-10-CM M54.2 Cervicalgia Active Diagnosis [facility] Diagnosis: ICD-10-CM S50.819A Abrasion of unspecified forearm, initial encounter Active Diagnosis [facility] Diagnosis: ICD-10-CM S50.811A Abrasion of right forearm, initial encounter Active Diagnosis [facility] Medications Combined list of outpatient medications from Department of Defense and Veterans Affairs facilities.Medications provided include 1) outpatient medications from the last 15 months, and 2) patient-reported medications. Medication Details Route Status Patient Instructions Prescription Expires Prescription Number Last Dispense Date Ordering Provider Order Date Order Qty Source CHLORHEXIDI NE GLUCONATE 4% LIQUID,TOP WASH TO AFFECTED AREA(S) EVERY WEEK ON SCALP/NE CK, LEAVE ON FOR 15-20 MINUTES BEFORE RINSING OFF - ONCE A WEEK. TOPICA L ACTIVE 11/12/2025 [id number] 5 ALIYA RODGERS 2024 240 [place] [facility] CLINDAMYCIN PO4 1% SOLN,TOP APPLY TO AFFECTED AREA(S) TWICE A DAY TO BUMPS ON SCALP AND POSTERIO R NECK THEY ARISE. TOPICA L ACTIVE 11/12/2025 [id number] 5 ALIYA RODGERS 2024 60 [place] [facility] DICLOFENAC NA 1% GEL,TOP APPLY 2 GM TO AFFECTED AREA(S) FOUR TIMES A DAY FOR PAIN NO MORE THAN 16 GM/DAY TO ANY LOWER EXTREMIT Y JOINT. NO MORE THAN 8 GM/DAY TO ANY UPPER EXTREMIT Y JOINT. MAX 32GM/DAY OVER ALL JOINTS.( MEASURE DOSE WITH RULER INSIDE BOX) TOPICA L ACTIVE 12/11/2025 [id number] 5 JEANMARIE MARLEY 2024 300 [facility] DOXYCYCLINE HYCLATE 100MG TAB TAKE ONE TABLET BY MOUTH TWICE A DAY FOR 7 DAYS TAKE UNTIL FINISHED . AVOID SUN EXPOSURE WHILE TAKING. ORAL 12/11/2024 [id number] 5 ALIYA RODGERS 2024 14 [place] [facility] FAMOTIDINE 20MG TAB TAKE ONE TABLET BY MOUTH TWICE A DAY TO LOWER STOMACH ACID ORAL 12/10/2024 [id number] DANIEL GAR 2023 180 [facility] IBUPROFEN 800MG TAB TAKE ONE TABLET BY MOUTH THREE TIMES A DAY NEEDED FOR PAIN OR INFLAMMA TION. TAKE WITH FOOD. ORAL DISCONT INUED BY PROVIDE R 12/10/2024 [id number] DANIEL GAR 2023 270 [facility] KETOCONAZOL E 2% SHAMPOO USE SHAMPOO TO AFFECTED AREA(S) TWO TO THREE TIMES PER WEEK MASSAGIN G INTO SCALP AND FACE LIKE LOTION, LEAVE ON FOR 15-20 MINUTES THEN RINSE OUT. TOPICA L ACTIVE 11/12/2025 [id number] 5 ALIYA RODGERS 2024 120 [place] [facility] MELOXICAM 7.5MG TAB TAKE ONE TABLET BY MOUTH ONCE A DAY FOR PAIN ORAL ACTIVE 12/11/2025 [id number] 5 JEANMARIE MARLEY 2024 90 [facility] METRONIDAZO LE 0.75% GEL,TOP APPLY SPARINGL Y TO AFFECTED AREA(S) TWICE A DAY APPLY TO CENTRAL FACE. (TOPICAL USE ONLY) TOPICA L ACTIVE 08/22/2025 [id number] 5 ALIYA RODGERS 2023 45 [place] [facility] PANTOPRAZOL E NA 40MG TAB,EC TAKE ONE TABLET BY MOUTH TWICE A DAY FOR GASTROES OPHAGEAL REFLUX DISEASE TAKE 30 MINUTES BEFORE MEAL(S) ORAL ACTIVE 03/25/2026 [id number] 5 MIRNA COLLIER ISTEDonald G 2024 180 [facility] SILDENAFIL CITRATE 100MG TAB TAKE ONE-HALF TABLET BY MOUTH EVERY WEEK NEEDED FOR ERECTILE DYSFUNCT ION (TAKE 60 MINUTES PRIOR TO SEXUAL ACTIVITY ) - LIMIT 4 DOSES PER 30 DAYS CUT TABLET IN HALF FOR YOUR DOSE ORAL 12/10/2024 [id number] 5 DANIEL GAR 2023 6 [facility] TIZANIDINE HCL 4MG TAB TAKE ONE TABLET BY MOUTH THREE TIMES A DAY ORAL DISCONT INUED 11/12/2025 [id number] 5 Jose JACKSON RA 2024 90 [place] [facility] TIZANIDINE HCL 4MG TAB TAKE ONE TABLET BY MOUTH THREE TIMES A DAY ORAL 03/12/2025 [id number] 5 Jose JACKSON RA 2024 90 [place] [facility] TIZANIDINE HCL 4MG TAB TAKE ONE TABLET BY MOUTH THREE TIMES A DAY ORAL 02/04/2025 [id number] 5 Jose JACKSON RA 2024 90 [place] [facility] TRAMADOL HCL 50MG TAB TAKE 1 TABLET BY MOUTH THREE TIMES A DAY NEEDED FOR PAIN (NOT TO EXCEED 3 TABLETS PER DAY) THIS QUANTITY MUST LAST 30 DAYS OR MORE ORAL ACTIVE 05/13/2025 [id number] 5 Jose JACKSON RA 2024 90 [place] [facility] TRAMADOL HCL 50MG TAB TAKE 1 TABLET BY MOUTH THREE TIMES A DAY ORAL DISCONT INUED 08/13/2025 [id number] 5 Jose JACKSON RA 2024 90 [place] [facility] TRAMADOL HCL 50MG TAB TAKE 1 TABLET BY MOUTH THREE TIMES A DAY FOR 30 DAYS ORAL DISCONT INUED 05/14/2025 [id number] 5 Jose JACKSON RA 2024 90 [place] [facility] TRAMADOL HCL 50MG TAB TAKE 1 TABLET BY MOUTH THREE TIMES A DAY NEEDED FOR PAIN (MAX 3 TAB/DAY) THIS QUANTITY MUST LAST 30 DAYS OR MORE ORAL DISCONT INUED 03/06/2025 [id number] 5 Jose JACKSON RA 2023 90 [place] [facility] TRAMADOL HCL 50MG TAB TAKE 1 TABLET BY MOUTH THREE TIMES A DAY ORAL 02/04/2025 [id number] 5 Jose JACKSON RA 2024 90 [place] [facility] TRAZODONE HCL 100MG TAB TAKE ONE AND ONE-HALF TABLETS BY MOUTH AT BEDTIME FOR INSOMNIA ORAL ACTIVE 09/24/2025 [id number] 5 MIRNA COLLIER 2023 135 [facility] TRAZODONE HCL 50MG TAB TAKE ONE-HALF TABLET BY MOUTH AT BEDTIME FOR INSOMNIA ORAL DISCONT INUED (EDIT) 06/18/2025 [id number] MIRNA COLLIER 2023 45 [facility] Allergies, Adverse Reactions, Alerts Combined list of allergies from Department of Defense and Veterans Affairs facilities. It does not include entries that were removed or entered in error. Substance Category Reaction Severity Reaction type Status Date Reported Comments Source BEE VENOM Propensity to adverse reaction (finding) Eruption SEVERE active 06/17/2024 [facility] Immunizations Combined list of available immunizations from the Department of Defense and Veterans [facility] facilities. Immunization Series Date Given Administered By Site Reaction Lot Number CVX Code Drug Disk Sharpener Status Comments Source ZOSTER RECOMBINANT 2 2022 ION العراقي LEFT DELTO ID [id number] 187 complet ed [facility] ZOSTER RECOMBINANT 1 2021 187 complet ed [facility] TDAP 2016 115 complet ed [facility] INFLUENZA, UNSPECIFIED FORMULATION 2011 88 complet ed [facility] PNEUMOCOCCAL, UNSPECIFIED FORMULATION 2011 109 complet ed [facility] REFUSED PNEUMOVAX (HISTORICAL) 2002 complet ed [facility] TD(ADULT) UNSPECIFIED FORMULATION 2002 139 complet ed [facility] INFLUENZA (HISTORICAL) 1995 LAURENT MAN I 88 complet ed [facility] Results Combined list of recent chemistry, hematology and other laboratory results from Department of [facility] and Veterans Affairs, ranging from 15 months to all on record, depending upon the facility. Order Name Results Value Reference Range Date Interpretation Specimen Comments Source B12 COBALAMIN (VITAMIN B12) [MASS/VOLUM E] IN SERUM OR PLASMA 283 pg/mL 213 - 816 09/25 Specimen Type: SERUM No comment entered. Ordering Provider: BRODERICK COLLIER Report Released Date/Time: Sep 23, 2024 12:50 PM Reporting Lab: [place] [facility] [address] [place] [address] Performing Lab: [place] [facility] [address] [place] [address] [facility] FOLATE (PB) FOLATE [MASS/VOLUM E] IN SERUM OR PLASMA 8.2 ng/mL 7 - 20 09/25 Specimen Type: SERUM No comment entered. Ordering Provider: BRODERICK COLLIER Report Released Date/Time: Sep 23, 2024 12:50 PM Reporting Lab: [place] [facility] [address] [place] [address] Performing Lab: [place] [facility] [address] [place] [address] [facility] HGA1C HEMOGLOBIN A1C/HEMOGLO BIN.TOTAL IN BLOOD 5.4 4.0 - 6.0 09/25 Specimen Type: BLOOD No comment entered. Ordering Provider: BRODERICK COLLIER Report Released Date/Time: Sep 23, 2024 12:50 PM Reporting Lab: [place] [facility] [address] [place] [address] Performing Lab: [place] [facility] [address] [place] [address] [facility] VITAMIN D, 25-HYDROX Y 25-HYDROXYV ITAMIN D3 [MASS/VOLUM E] IN SERUM OR PLASMA 40.5 ng/mL 30 - 96 09/25 Specimen Type: SERUM No comment entered. Ordering Provider: BRODERICK COLLIER Report Released Date/Time: Sep 23, 2024 12:50 PM Reporting Lab: [place] [facility] [address] [place] [address] Performing Lab: [place] [facility] [address] [place] [address] [facility] CHOLESTER OL PANEL (PB) CHOLESTEROL [MASS/VOLUM E] IN SERUM OR PLASMA 192 mg/dL 0 - 200 09/25 Specimen Type: PLASMA No comment entered. Ordering Provider: BRODERICK COLLIER Report Released Date/Time: Sep 23, 2024 12:50 PM Reporting Lab: [place] [facility] [address] [place] [address] Performing Lab: [place] [facility] [address] [place] [address] [facility] CHOLESTER OL PANEL (PB) TRIGLYCERID E [MASS/VOLUM E] IN SERUM OR PLASMA 82 mg/dL 0 - 150 09/25 Specimen Type: PLASMA No comment entered. Ordering Provider: BRODERICK COLLIER Report Released Date/Time: Sep 23, 2024 12:50 PM Reporting Lab: [place] [facility] [address] [place] [address] Performing Lab: [place] [facility] [address] [place] [address] [facility] CHOLESTER OL PANEL (PB) CHOLESTEROL IN LDL [MASS/VOLUM E] IN SERUM OR PLASMA BY CALCULATION 130.2 mg/dL 09/25 Specimen Type: PLASMA No comment entered. Ordering Provider: BRODERICK COLLIER Report Released Date/Time: Sep 23, 2024 12:50 PM Reporting Lab: [place] [facility] [address] [place] [address] Performing Lab: [place] [facility] [address] [place] [address] [facility] CHOLESTER OL PANEL (PB) CHOLESTEROL IN HDL [MASS/VOLUM E] IN SERUM OR PLASMA 45.4 mg/dL 40 09/25 H Specimen Type: PLASMA No comment entered. Ordering Provider: BRODERICK COLLIER Report Released Date/Time: Sep 23, 2024 12:50 PM Reporting Lab: [place] [facility] [address] [place] [address] Performing Lab: [place] [facility] [address] [place] [phone] [facility] CHOLESTER OL PANEL (PB) CHOLESTEROL IN HDL/CHOLEST PAULINA.TOTAL [MASS RATIO] IN SERUM OR PLASMA 23.6 25 09/25 Specimen Type: PLASMA No comment entered. Ordering Provider: BRODERICK COLLIER Report Released Date/Time: Sep 23, 2024 12:50 PM Reporting Lab: [place] [facility] [address] [place] [address] Performing Lab: [place] [facility] [address] [place] [address] [facility] PROST. SPECIFIC AG.(PB-ST L) PROSTATE SPECIFIC AG [MASS/VOLUM E] IN SERUM OR PLASMA 0.60 ng/mL 0 - 4 09/25 Specimen Type: SERUM No comment entered. Ordering Provider: BRODERICK COLLIER Report Released Date/Time: Sep 23, 2024 12:50 PM Reporting Lab: [place] [facility] [address] [place] [address] Performing Lab: [place] [facility] [address] [place] [address] [facility] TSH (MA-PB) THYROTROPIN [UNITS/VOLU ME] IN SERUM OR PLASMA 2.845 u[IU]/mL 0.47 - 5 09/25 Specimen Type: SERUM No comment entered. Ordering Provider: BRODERICK COLLIER Report Released Date/Time: Sep 23, 2024 12:50 PM Reporting Lab: [place] [facility] [address] [place] [address] Performing Lab: [place] [facility] [address] [place] [address] [facility] COMPREHEN SIVE METABOLIC PANEL CREATININE [MASS/VOLUM E] IN SERUM OR PLASMA 1.41 mg/dL 0.7 - 1.3 09/25 H Specimen Type: PLASMA No comment entered. Ordering Provider: BRODERICK COLLIER Report Released Date/Time: Sep 23, 2024 12:50 PM Reporting Lab: [place] [facility] [address] [place] [address] Performing Lab: [place] [facility] [address] [place] [address] [facility] COMPREHEN SIVE METABOLIC PANEL UREA NITROGEN [MASS/VOLUM E] IN SERUM OR PLASMA 11 mg/dL 9 - 25 09/25 Specimen Type: PLASMA No comment entered. Ordering Provider: BRODERICK COLLIER Report Released Date/Time: Sep 23, 2024 12:50 PM Reporting Lab: [place] [facility] [address] [place] [address] Performing Lab: [place] [facility] [address] [place] [address] [facility] COMPREHEN SIVE METABOLIC PANEL GLUCOSE [MASS/VOLUM E] IN SERUM OR PLASMA 123 mg/dL 72 - 99 09/25 H Specimen Type: PLASMA No comment entered. Ordering Provider: BRODERICK COLLIER Report Released Date/Time: Sep 23, 2024 12:50 PM Reporting Lab: [place] [facility] [address] [place] [address] Performing Lab: [place] [facility] [address] [place] [phone] [facility] COMPREHEN SIVE METABOLIC PANEL SODIUM [MOLES/VOLU ME] IN SERUM OR PLASMA 138 meq/L 136 - 145 09/25 Specimen Type: PLASMA No comment entered. Ordering Provider: BRODERICK COLLIER Report Released Date/Time: Sep 23, 2024 12:50 PM Reporting Lab: [place] [facility] [address] [place] [address] Performing Lab: [place] [facility] [address] [place] [address] [facility] COMPREHEN SIVE METABOLIC PANEL POTASSIUM [MOLES/VOLU ME] IN SERUM OR PLASMA 4.2 meq/L 3.5 - 5 09/25 Specimen Type: PLASMA No comment entered. Ordering Provider: BRODERICK COLLIER Report Released Date/Time: Sep 23, 2024 12:50 PM Reporting Lab: [place] [facility] [address] [place] [address] Performing Lab: [place] [facility] [address] [place] [address] [facility] COMPREHEN SIVE METABOLIC PANEL CHLORIDE [MOLES/VOLU ME] IN SERUM OR PLASMA 105 meq/L 98 - 107 09/25 Specimen Type: PLASMA No comment entered. Ordering Provider: BRODERICK COLLIER Report Released Date/Time: Sep 23, 2024 12:50 PM Reporting Lab: [place] [facility] [address] [place] [address] Performing Lab: [place] [facility] [address] [place] [phone] [facility] COMPREHEN SIVE METABOLIC PANEL CARBON DIOXIDE, TOTAL [MOLES/VOLU ME] IN SERUM OR PLASMA 22 meq/L 22 - 31 09/25 Specimen Type: PLASMA No comment entered. Ordering Provider: BRODERICK COLLIER Report Released Date/Time: Sep 23, 2024 12:50 PM Reporting Lab: [place] [facility] [address] [place] [address] Performing Lab: [place] [facility] [address] [place] [address] [facility] COMPREHEN SIVE METABOLIC PANEL CALCIUM [MASS/VOLUM E] IN SERUM OR PLASMA 9.6 mg/dL 8.4 - 10.4 09/25 Specimen Type: PLASMA No comment entered. Ordering Provider: BRODERICK COLLIER Report Released Date/Time: Sep 23, 2024 12:50 PM Reporting Lab: [place] [facility] [address] [place] [address] Performing Lab: [place] [facility] [address] [place] [address] [facility] COMPREHEN SIVE METABOLIC PANEL PROTEIN [MASS/VOLUM E] IN SERUM OR PLASMA 7.3 g/dL 6 - 8.6 09/25 Specimen Type: PLASMA No comment entered. Ordering Provider: BRODERICK COLLIER Report Released Date/Time: Sep 23, 2024 12:50 PM Reporting Lab: [place] [facility] [address] [place] [address] Performing Lab: [place] [facility] [address] [place] [address] [facility] COMPREHEN SIVE METABOLIC PANEL ALBUMIN [MASS/VOLUM E] IN SERUM OR PLASMA 4.1 g/dL 3.4 - 5 09/25 Specimen Type: PLASMA No comment entered. Ordering Provider: BRODERICK COLLIER Report Released Date/Time: Sep 23, 2024 12:50 PM Reporting Lab: [place] [facility] [address] [place] [address] Performing Lab: [place] [facility] [address] [place] [address] [facility] COMPREHEN SIVE METABOLIC PANEL BILIRUBIN.T OTAL [MASS/VOLUM E] IN SERUM OR PLASMA 0.6 mg/dL 0.2 - 1.2 09/25 Specimen Type: PLASMA No comment entered. Ordering Provider: BRODERICK COLLIER Report Released Date/Time: Sep 23, 2024 12:50 PM Reporting Lab: [place] [facility] [address] [place] [address] Performing Lab: [place] [facility] [address] [place] [address] [facility] COMPREHEN SIVE METABOLIC PANEL ALKALINE PHOSPHATASE [ENZYMATIC ACTIVITY/VO LUME] IN SERUM OR PLASMA 122 U/L 40 - 150 09/25 Specimen Type: PLASMA No comment entered. Ordering Provider: BRODERICK COLLIER Report Released Date/Time: Sep 23, 2024 12:50 PM Reporting Lab: [place] [facility] [address] [place] [address] Performing Lab: [place] [facility] [address] [place] [address] [facility] COMPREHEN SIVE METABOLIC PANEL ASPARTATE AMINOTRANSF ERASE [ENZYMATIC ACTIVITY/VO LUME] IN SERUM OR PLASMA 19 U/L 5 - 34 09/25 Specimen Type: PLASMA No comment entered. Ordering Provider: BRODERICK COLLIER Report Released Date/Time: Sep 23, 2024 12:50 PM Reporting Lab: [place] [facility] [address] [place] [address] Performing Lab: [place] [facility] [address] [place] [address] [facility] COMPREHEN SIVE METABOLIC PANEL ALANINE AMINOTRANSF ERASE [ENZYMATIC ACTIVITY/VO LUME] IN SERUM OR PLASMA 17 U/L 8 - 40 09/25 Specimen Type: PLASMA No comment entered. Ordering Provider: BRODERICK COLLIER Report Released Date/Time: Sep 23, 2024 12:50 PM Reporting Lab: [place] [facility] [address] [place] [address] Performing Lab: [place] [facility] [address] [place] [address] [facility] COMPREHEN SIVE METABOLIC PANEL GLOMERULAR FILTRATION RATE/1.73 SQ M.PREDICTED [VOLUME RATE/AREA] IN SERUM, PLASMA OR BLOOD BY CREATININE- BASED FORMULA (CKD-EPI 2020) 58 09/25 Specimen Type: PLASMA No comment entered. Ordering Provider: BRODERICK COLLIER Report Released Date/Time: Sep 23, 2024 12:50 PM Reporting Lab: [place] [facility] [address] [place] [address] Performing Lab: [place] [facility] [address] [place] [address] [facility] TESTOSTER ONE, TOTAL (PB-MA) TESTOSTERON E [MASS/VOLUM E] IN SERUM OR PLASMA 751.0 ng/dL 221.0 - 871.0 09/25 Specimen Type: SERUM No comment entered. Ordering Provider: BRODERICK COLLIER Report Released Date/Time: Sep 23, 2024 01:55 PM Reporting Lab: [place] [facility] [address] [place] [address] Performing Lab: [place] [facility] [address] [place] [address] [facility] CBC LEUKOCYTES [#/VOLUME] IN BLOOD BY AUTOMATED COUNT 6.5 10*3/uL 3.6 - 11.2 09/25 Specimen Type: BLOOD Comment: PLT Suspect Result. Interpret result with other clinical findings. See PLT Smear Estimate. MPV Suspect Result. Interpret result with other clinical findings. Ordering Provider: BRODERICK COLLIER Report Released Date/Time: Sep 23, 2024 12:50 PM Reporting Lab: [place] [facility] [address] [place] [id number] Performing Lab: [place] [facility] [address] [place] [address] [facility] CBC ERYTHROCYTE S [#/VOLUME] IN BLOOD BY AUTOMATED COUNT 5.58 10*6/uL 4.10 - 5.70 09/25 Specimen Type: BLOOD Comment: PLT Suspect Result. Interpret result with other clinical findings. See PLT Smear Estimate. MPV Suspect Result. Interpret result with other clinical findings. Ordering Provider: BRODERICK COLLIER Report Released Date/Time: Sep 23, 2024 12:50 PM Reporting Lab: [place] [facility] [address] [place] [id number] Performing Lab: [place] [facility] [address] [place] [address] [facility] CBC HEMOGLOBIN [MASS/VOLUM E] IN BLOOD 16.3 g/dL 13.1 - 16.8 09/25 Specimen Type: BLOOD Comment: PLT Suspect Result. Interpret result with other clinical findings. See PLT Smear Estimate. MPV Suspect Result. Interpret result with other clinical findings. Ordering Provider: BRODERICK COLLIER Report Released Date/Time: Sep 23, 2024 12:50 PM Reporting Lab: [place] [facility] [address] [place] [address] Performing Lab: [place] [facility] [address] [place] [address] [facility] CBC HEMATOCRIT [VOLUME FRACTION] OF BLOOD 50.0 38.2 - 48.4 09/25 H Specimen Type: BLOOD Comment: PLT Suspect Result. Interpret result with other clinical findings. See PLT Smear Estimate. MPV Suspect Result. Interpret result with other clinical findings. Ordering Provider: BRODERICK COLLIER Report Released Date/Time: Sep 23, 2024 12:50 PM Reporting Lab: [place] [facility] [address] [place] [address] Performing Lab: [place] [facility] [address] [place] [address] [facility] CBC MCV [ENTITIC VOLUME] BY AUTOMATED COUNT 89.6 fL 80.0 - 100.0 09/25 Specimen Type: BLOOD Comment: PLT Suspect Result. Interpret result with other clinical findings. See PLT Smear Estimate. MPV Suspect Result. Interpret result with other clinical findings. Ordering Provider: BRODERICK COLLIER Report Released Date/Time: Sep 23, 2024 12:50 PM Reporting Lab: [place] [facility] [address] [place] [address] Performing Lab: [place] [facility] [address] [place] [address] [facility] CBC MCH [ENTITIC MASS] BY AUTOMATED COUNT 29.2 pg 27.0 - 34.0 09/25 Specimen Type: BLOOD Comment: PLT Suspect Result. Interpret result with other clinical findings. See PLT Smear Estimate. MPV Suspect Result. Interpret result with other clinical findings. Ordering Provider: BRODERICK COLLIER Report Released Date/Time: Sep 23, 2024 12:50 PM Reporting Lab: [place] [facility] [address] [place] [address] Performing Lab: [place] [facility] [address] [place] [id number] [facility] CBC MCHC [MASS/VOLUM E] BY AUTOMATED COUNT 32.6 g/dL 33.0 - 36.0 09/25 L Specimen Type: BLOOD Comment: PLT Suspect Result. Interpret result with other clinical findings. See PLT Smear Estimate. MPV Suspect Result. Interpret result with other clinical findings. Ordering Provider: BRODERICK COLLIER Report Released Date/Time: Sep 23, 2024 12:50 PM Reporting Lab: [place] [facility] [address] [place] [address] Performing Lab: [place] [facility] [address] [place] [address] [facility] CBC PLATELETS [#/VOLUME] IN BLOOD BY AUTOMATED COUNT 297 10*3/uL 150 - 400 09/25 Specimen Type: BLOOD Comment: PLT Suspect Result. Interpret result with other clinical findings. See PLT Smear Estimate. MPV Suspect Result. Interpret result with other clinical findings. Ordering Provider: BRODERICK COLLIER Report Released Date/Time: Sep 23, 2024 12:50 PM Reporting Lab: [place] [facility] [address] [place] [address] Performing Lab: [place] [facility] [address] [place] [address] [facility] CBC PLATELET MEAN VOLUME [ENTITIC VOLUME] IN BLOOD BY AUTOMATED COUNT 10.1 fL 7.5 - 11.2 09/25 Specimen Type: BLOOD Comment: PLT Suspect Result. Interpret result with other clinical findings. See PLT Smear Estimate. MPV Suspect Result. Interpret result with other clinical findings. Ordering Provider: BRODERICK COLLIER Report Released Date/Time: Sep 23, 2024 12:50 PM Reporting Lab: [place] [facility] [address] [place] [address] Performing Lab: [place] [facility] [address] [place] [phone] [place] [address] [facility] CBC PLATELET ADEQUACY [PRESENCE] IN BLOOD BY LIGHT MICROSCOPY ADEQUATE 09/25 Specimen Type: BLOOD Comment: PLT Suspect Result. Interpret result with other clinical findings. See PLT Smear Estimate. MPV Suspect Result. Interpret result with other clinical findings. Ordering Provider: BRODERICK COLLIER Report Released Date/Time: Sep 23, 2024 12:50 PM Reporting Lab: [place] [facility] [address] [place] [address] Performing Lab: [place] [facility] [address] [place] [address] [facility] CBC ERYTHROCYTE DISTRIBUTIO N WIDTH [RATIO] BY AUTOMATED COUNT 12.7 11.8 - 15.1 09/25 Specimen Type: BLOOD Comment: PLT Suspect Result. Interpret result with other clinical findings. See PLT Smear Estimate. MPV Suspect Result. Interpret result with other clinical findings. Ordering Provider: BRODERICK COLLIER Report Released Date/Time: Sep 23, 2024 12:50 PM Reporting Lab: [place] [facility] [address] [place] [address] Performing Lab: [place] [facility] [address] [place] [id number] [place] [address] [facility] CBC LYMPHOCYTES /100 LEUKOCYTES IN BLOOD BY AUTOMATED COUNT 21.4 09/25 Specimen Type: BLOOD Comment: PLT Suspect Result. Interpret result with other clinical findings. See PLT Smear Estimate. MPV Suspect Result. Interpret result with other clinical findings. Ordering Provider: BRODERICK COLLIER Report Released Date/Time: Sep 23, 2024 12:50 PM Reporting Lab: [place] [facility] [address] [place] [address] Performing Lab: [place] [facility] [address] [place] [address] [facility] CBC MONOCYTES/1 00 LEUKOCYTES IN BLOOD BY AUTOMATED COUNT 8.4 09/25 Specimen Type: BLOOD Comment: PLT Suspect Result. Interpret result with other clinical findings. See PLT Smear Estimate. MPV Suspect Result. Interpret result with other clinical findings. Ordering Provider: BRODERICK COLLIER Report Released Date/Time: Sep 23, 2024 12:50 PM Reporting Lab: [place] [facility] [address] [place] [address] Performing Lab: [place] [facility] [address] [place] [address] [facility] CBC NEUTROPHILS /100 LEUKOCYTES IN BLOOD BY AUTOMATED COUNT 67.1 09/25 Specimen Type: BLOOD Comment: PLT Suspect Result. Interpret result with other clinical findings. See PLT Smear Estimate. MPV Suspect Result. Interpret result with other clinical findings. Ordering Provider: BRODERICK COLLIER Report Released Date/Time: Sep 23, 2024 12:50 PM Reporting Lab: [place] [facility] [address] [place] [address] Performing Lab: [place] [facility] [address] [place] [address] [facility] CBC EOSINOPHILS /100 LEUKOCYTES IN BLOOD BY AUTOMATED COUNT 1.8 09/25 Specimen Type: BLOOD Comment: PLT Suspect Result. Interpret result with other clinical findings. See PLT Smear Estimate. MPV Suspect Result. Interpret result with other clinical findings. Ordering Provider: BRODERICK COLLIER Report Released Date/Time: Sep 23, 2024 12:50 PM Reporting Lab: [place] [facility] [address] [place] [address] Performing Lab: [place] [facility] [address] [place] [address] [facility] CBC BASOPHILS/1 00 LEUKOCYTES IN BLOOD BY AUTOMATED COUNT 0.8 09/25 Specimen Type: BLOOD Comment: PLT Suspect Result. Interpret result with other clinical findings. See PLT Smear Estimate. MPV Suspect Result. Interpret result with other clinical findings. Ordering Provider: BRODERICK COLLIER Report Released Date/Time: Sep 23, 2024 12:50 PM Reporting Lab: [place] [facility] [address] [place] [address] Performing Lab: [place] [facility] [address] [place] [address] [facility] CBC LYMPHOCYTES [#/VOLUME] IN BLOOD BY AUTOMATED COUNT 1.39 10*3/uL 0.77 - 4.50 09/25 Specimen Type: BLOOD Comment: PLT Suspect Result. Interpret result with other clinical findings. See PLT Smear Estimate. MPV Suspect Result. Interpret result with other clinical findings. Ordering Provider: BRODERICK COLLIER Report Released Date/Time: Sep 23, 2024 12:50 PM Reporting Lab: [place] [facility] [address] [place] [address] Performing Lab: [place] [facility] [address] [place] [address] [place] [address] [facility] CBC MONOCYTES [#/VOLUME] IN BLOOD BY AUTOMATED COUNT 0.55 10*3/uL 0.19 - 0.8 09/25 Specimen Type: BLOOD Comment: PLT Suspect Result. Interpret result with other clinical findings. See PLT Smear Estimate. MPV Suspect Result. Interpret result with other clinical findings. Ordering Provider: BRODERICK COLLIER Report Released Date/Time: Sep 23, 2024 12:50 PM Reporting Lab: [place] [facility] [address] [place] [address] Performing Lab: [place] [facility] [address] [place] [address] [facility] CBC NEUTROPHILS [#/VOLUME] IN BLOOD BY AUTOMATED COUNT 4.37 10*3/uL 2.10 - 8.00 09/25 Specimen Type: BLOOD Comment: PLT Suspect Result. Interpret result with other clinical findings. See PLT Smear Estimate. MPV Suspect Result. Interpret result with other clinical findings. Ordering Provider: BRODERICK COLLIER Report Released Date/Time: Sep 23, 2024 12:50 PM Reporting Lab: [place] [facility] [address] [place] [address] Performing Lab: [place] [facility] [address] [place] [address] [place] [address] [facility]OC CBC EOSINOPHILS [#/VOLUME] IN BLOOD BY AUTOMATED COUNT 0.12 10*3/uL 0.00 - 0.60 09/25 Specimen Type: BLOOD Comment: PLT Suspect Result. Interpret result with other clinical findings. See PLT Smear Estimate. MPV Suspect Result. Interpret result with other clinical findings. Ordering Provider: BRODERICK COLLIER Report Released Date/Time: Sep 23, 2024 12:50 PM Reporting Lab: [place] [facility] [address] [place] [address] Performing Lab: [place] [facility] [address] [place] [address] [facility] CBC BASOPHILS [#/VOLUME] IN BLOOD BY AUTOMATED COUNT 0.05 10*3/uL 0.00 - 0.20 09/25 Specimen Type: BLOOD Comment: PLT Suspect Result. Interpret result with other clinical findings. See PLT Smear Estimate. MPV Suspect Result. Interpret result with other clinical findings. Ordering Provider: BRODERICK COLLIER Report Released Date/Time: Sep 23, 2024 12:50 PM Reporting Lab: [place] [facility] [address] [place] [address] Performing Lab: [place] [facility] [address] [place] [address] [facility] CBC PLATELETS RETICULATED /100 PLATELETS IN BLOOD BY AUTOMATED COUNT 3.1 1.0 - 7.0 09/25 Specimen Type: BLOOD Comment: PLT Suspect Result. Interpret result with other clinical findings. See PLT Smear Estimate. MPV Suspect Result. Interpret result with other clinical findings. Ordering Provider: BRODERICK COLLIER Report Released Date/Time: Sep 23, 2024 12:50 PM Reporting Lab: [place] [facility] [address] [place] [address] Performing Lab: [place] [facility] [address] [place] [phone] [place] [address] [facility] CBC IMMATURE GRANULOCYTE S/100 LEUKOCYTES IN BLOOD BY AUTOMATED COUNT 0.5 09/25 Specimen Type: BLOOD Comment: PLT Suspect Result. Interpret result with other clinical findings. See PLT Smear Estimate. MPV Suspect Result. Interpret result with other clinical findings. Ordering Provider: BRODERICK COLLIER Report Released Date/Time: Sep 23, 2024 12:50 PM Reporting Lab: [place] [facility] [address] [place] [address] Performing Lab: [place] [facility] [address] [place] [address] [facility] CBC IMMATURE GRANULOCYTE S [#/VOLUME] IN BLOOD BY AUTOMATED COUNT 0.03 10*3/uL 0.00 - 0.05 09/25 Specimen Type: BLOOD Comment: PLT Suspect Result. Interpret result with other clinical findings. See PLT Smear Estimate. MPV Suspect Result. Interpret result with other clinical findings. Ordering Provider: BRODERICK COLLIER Report Released Date/Time: Sep 23, 2024 12:50 PM Reporting Lab: [place] [facility] [address] [place] [address] Performing Lab: [place] [facility] [address] [place] [address] [facility] CBC MANUAL DIFFERENTIA L COMMENT [INTERPRETA TION] IN BLOOD NARRATIVE YES 09/25 Specimen Type: BLOOD Comment: PLT Suspect Result. Interpret result with other clinical findings. See PLT Smear Estimate. MPV Suspect Result. Interpret result with other clinical findings. Ordering Provider: BRODERICK COLLIER Report Released Date/Time: Sep 23, 2024 12:50 PM Reporting Lab: [place] [facility] [address] [place] [address] Performing Lab: [place] [facility] [address] [place] [address] [facility] CBC MANUAL DIFFERENTIA L PERFORMED [PRESENCE] IN BLOOD YES 09/25 Specimen Type: BLOOD Comment: PLT Suspect Result. Interpret result with other clinical findings. See PLT Smear Estimate. MPV Suspect Result. Interpret result with other clinical findings. Ordering Provider: BRODERICK COLLIER Report Released Date/Time: Sep 23, 2024 12:50 PM Reporting Lab: [place] [facility] [address] [place] [address] Performing Lab: [place] [facility] [address] [place] [address] [facility] Vital Signs Combined list of inpatient and outpatient Vital Signs from Department of Defense and Veterans Affairs, ranging from 12 months to all on record, depending upon the facility. Vital Sign Value Date Comments Source SYSTOLIC BLOOD PRESSURE 116 05/07/2025 11:52:52 [place] [facility] DIASTOLIC BLOOD PRESSURE 78 05/07/2025 11:52:52 [place] [facility] PULSE OXIMETRY 97 % 05/07/2025 11:52:52 [facility] [place] [facility] WEIGHT 192.3 05/07/2025 11:52:52 [place] [facility] BMI 29 kg/m2 05/07/2025 11:52:52 [facility] [place] [facility] PAIN 3 05/07/2025 11:52:52 [facility] [place] [facility] TEMPERATURE 97.7 05/07/2025 11:52:52 [place] [facility] PULSE 56 05/07/2025 11:52:52 [place] [facility] RESPIRATION 20 05/07/2025 11:52:52 [place] [facility] SYSTOLIC BLOOD PRESSURE 125 04/28/2025 13:20:00 [place] [facility] DIASTOLIC BLOOD PRESSURE 78 04/28/2025 13:20:00 [place] [facility] TEMPERATURE 97.8 04/28/2025 13:20:00 [place] [facility] PULSE 74 04/28/2025 13:20:00 [place] [facility] SYSTOLIC BLOOD PRESSURE 125 04/14/2025 13:03:00 [place] [facility] DIASTOLIC BLOOD PRESSURE 84 04/14/2025 13:03:00 [place] [facility] PULSE OXIMETRY 97 % 04/14/2025 13:03:00 [facility] [place] [facility] WEIGHT 194.9 04/14/2025 13:03:00 [place] [facility] BMI 30 kg/m2 04/14/2025 13:03:00 [place] [facility] PAIN 0 04/14/2025 13:03:00 [place] [facility] TEMPERATURE 98.5 04/14/2025 13:03:00 [place] [facility] PULSE 105 04/14/2025 13:03:00 [facility] [place] [facility] RESPIRATION 18 04/14/2025 13:03:00 [place] [facility] SYSTOLIC BLOOD PRESSURE 125 03/24/2025 10:47:54 [facility] [place] [facility] DIASTOLIC BLOOD PRESSURE 80 03/24/2025 10:47:54 [facility] [place] [facility] PULSE OXIMETRY 97 03/24/2025 10:47:54 [facility] TEMPERATURE 98 03/24/2025 10:47:54 [facility] PULSE 62 03/24/2025 10:47:54 [facility] RESPIRATION 18 03/24/2025 10[facility]47:54 [facility] SYSTOLIC BLOOD PRESSURE 149 03/04/2025 13:20:00 [facility] DIASTOLIC BLOOD PRESSURE 94 03/04/2025 13:20:00 [facility] TEMPERATURE 98.6 03/04/2025 13:20:00 [facility] PULSE 83 03/04/2025 13:20:00 [facility] Encounters Combined list of: 1) Encounters from Department of [facility] Affairs facilities going backup to the last 18 months, not all [place] inpatient encounters are included; 2) Encounters from the Department of Defense facilities going backup to 280 months. Location Location Details Encounter Type Encounter Number Reason For Visit Attending Provider ADM Date DC Date Status Disposition Source [facility] [place] MANJ XTRSPINL 1/ [id number] Diagnos is: ICD-10- CM M54.2 Cervica ANDER Aguero 11/12 [facility] Outpatient Encounter [id number] 11/13 [facility] Outpatient Encounter [id number] 11/15 [facility] Outpatient Encounter [id number] 11/20 [facility] Outpatient Encounter [id number] 11/21 [facility] Outpatient Encounter [id number] 11/27 [facility] [place] MANJ 3-4 [place] [id number] Diagnos is: ICD-10- CM M99.01 Segment al and somatic dysfunc tion of cervica l region JASSI FARLEY 12/04 [facility] Outpatient Encounter [id number] 12/07 [facility] Outpatient Encounter [id number] 12/10 [facility] Outpatient Encounter [id number] Sarah [facility]INGH L [facility] 3-4 [place] [id number] Diagnos is: ICD-10- CM M99.01 Segment al and somatic dysfunc tion of cervica l region JASSI FARLEY 12/17 [facility] Outpatient Encounter [id number] 12/18 [facility] Outpatient Encounter [id number] 12/18 [facility] [id number] 12/26 [facility] [place] 3-4 [place] [id number] Diagnos is: ICD-10- CM M99.01 Segment al and somatic dysfunc tion of cervica l region JASSI FARLEY 12/31 [facility] [place] [facility] Outpatient Encounter [id number] 01/07 [place] [facility] Outpatient Encounter [id number] 01/08 [facility] Outpatient Encounter [id number] 01/09 [facility] Outpatient Encounter [id number] 01/13 [facility] OFF/OP EST MAY X REQ PHY/QHP [id number] Diagnos is: ICD-10- CM S50.811 A Abrasio n of right forearm , initial encount er AMY BANGURA A 01/27 [facility] OFFICE O/P EST LOW 20 MIN [id number] Diagnos is: ICD-10- CM S50.819 A Abrasio n of unspeci fied forearm , initial encount er BRODERICK COLLIER G 01/27 [facility] Outpatient Encounter [id number] 01/28 [facility] Outpatient Encounter [id number] 01/28 [facility] Outpatient Encounter [id number] 02/06 [facility] CHIROP[place]CT MANJ XTRSPINL 1/ [id number] Diagnos is: ICD-10- CM M54.2 Cervica rajaniia ANDER GONZALEZ 02/07 [facility] Outpatient Encounter [id number] 02/07 [facility] Outpatient Encounter [id number] 02/10 [facility] Outpatient Encounter [id number] 02/11 [facility] Outpatient Encounter [id number] 02/14 [facility] Outpatient Encounter [id number] 02/14 [facility] CHIR[place]RACT MANJ 3-4 [place] [id number] Diagnos is: ICD-10- CM M99.01 Segment al and somatic dysfunc tion of cervica l region JASSI FARLEY E 02/18 [facility] Outpatient Encounter [id number] 03/03 [facility] Outpatient Encounter [id number] 03/11 [facility] Outpatient Encounter [id number] 03/14 [facility] CH[place] MANJ XTRSPINL 1/> [id number] Diagnos is: ICD-10- CM M54.2 Cervica lgia ANDER GONZALEZ 03/14 [facility] Outpatient Encounter [id number] 03/[address] [place] [facility] Out[facility] Encounter [id number] 03/21 [facility] [place] MANJ 3-4 [place] [id number] Diagnos is: ICD-10- CM M99.01 Segment al and somatic dysfunc tion of cervica l region JASSI FARLEY E 04/01 [facility] Outpatient Encounter [id number] 04/07 [facility] MAN 3-4 [place] [id number] Diagnos is: ICD-10- CM M99.01 Segment al and somatic dysfunc tion of cervica l region JASSI FARLEY E 04/15 [facility] Outpatient Encounter [id number] 04/29 [facility] En[facility] [id number] 05/13 [facility] 3-4 [place] [id number] Diagnos is: ICD-10- CM M99.01 Segment al and somatic dysfunc tion of cervica l region JASSI FARLEY E 05/13 [place] [facility] Outpatient Encounter [id number] 05/14 [facility] Encounter [id number] 05/23 [facility] [place] MANJ 3-4 [place] [id number] Diagnos is: ICD-10- CM M99.01 Segment al and somatic dysfunc tion of cervica l region JASSI FARLEY E 06/10 [facility] Outpatient Encounter [id number] 06/10 [facility] Outpatient Encounter [id number] 06/13 [facility] [place] [facility] Outpatient Encounter [id number] 06/17 [place] [facility] OFFICE O/P EST MOD 30 MIN [id number] Diagnos is: ICD-10- CM G47.00 Insomni a, unspeci fied MIRNA COLLIERI KESHAV G 06/17 [facility] Outpatient Encounter [id number] 06/30 [facility] 3-4 [place] [id number] Diagnos is: ICD-10- CM M99.01 Segment al and somatic dysfunc tion of cervica l region JASSI FARLEY 07/01 [facility] Outpatient Encounter [id number] 07/02 [facility] Outpatient Encounter [id number] 07/04 [facility] [place] [place] [place] [id number] Diagnos is: ICD-10- CM K02.52 Dental caries on pit and fissure surfc penetra t into dentin CARMEN GIBBS 07/07 [place] Outpatient Encounter [id number] 07/08 [facility] Outpatient Encounter [id number] 07/14 [facility] Outpatient Encounter [id number] 07/16 [facility] CHIROP[facility]CT MANJ 3-4 [place] [id number] Diagnos is: ICD-10- CM M99.01 Segment al and somatic dysfunc tion of cervica l region JASSI FARLEY E 07/16 [facility] Outpatient Encounter [id number] 07/17 [facility] [facility] Outpatient Encounter [id number] 07/28 [facility] Outpatient Encounter [id number] 08/04 [facility] OFF/OP EST FEBRUARY X REQ PHY/QHP [id number] Diagnos is: ICD-10- CM 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 INDY Hampton 08/11 [facility] Outpatient Encounter [id number] 08/12 [facility] Outpatient Encounter [id number] 08/12 [facility] [place] MANJ 3-4 REGIONS [id number] Diagnos is: ICD-10- CM M99.01 Segment al and somatic dysfunc tion of cervica l region JASSI FARLEY 08/14 [facility] Outpatient Encounter [id number] [id number] 08/20 [facility] En[facility] [id number] 08/21 [facility]4 [facility]IONS [id number] Diagnos is: ICD-10- CM M99.01 Segment al and somatic dysfunc tion of cervica l region JASSI FARLEY 08/27 [facility] [place]CT MANJ 3-4 REGIONS [id number] Diagnos is: ICD-10- CM M99.01 Segment al and somatic dysfunc tion of cervica l region JASSI AFRLEY E 09/03 [facility] Outpatient Encounter [id number] 09/04 [facility] En[facility] [id number] 09/08 [facility] CHIROPRACT MAN 3-4 REGIONS [id number] [id number] Diagnos is: ICD-10- CM M99.01 Segment al and somatic dysfunc tion of cervica l region JASSI FARLEY 09/17 [facility] OFFICE O/P EST MOD 30 MIN [id number] Diagnos is: ICD-10- CM Z00.01 Encount er for general adult medical exam w abnorma l finding s BRODERICK COLLIER G 09/23 [facility] [place]IR[place]RACT MANJ 1-2 REGIONS [id number] [id number] Diagnos is: ICD-10- CM M99.01 Segment al and somatic dysfunc tion of cervica l region JASSI FARLEY E 10/01 [facility] [place]CT MANJ 3-4 REGIONS [id number] [id number] Diagnos is: ICD-10- CM M99.01 Segment al and somatic dysfunc tion of cervica l region JASSI FARLEY 10/16 [facility] Outpatient Encounter [id number] 10/30 [facility] [place]-4 [place]IONS [id number] [id number] Diagnos is: ICD-10- CM M99.01 Segment al and somatic dysfunc tion of cervica l region JASSI FARLEY 10/30 [facility] Outpatient Encounter [id number] 11/11 [facility] Outpatient Encounter [id number] [id number] 11/12 [facility] CHIROPRACT MANJ 3-4 REGIONS [id number] [id number] Diagnos is: ICD-10- CM M99.01 Segment al and somatic dysfunc tion of cervica l region JASSI FARLEY 11/25 [facility] Outpatient Encounter [id number] 12/04 [facility] [place]CT MANJ 3-4 REGIONS [id number] [id number] Diagnos is: ICD-10- CM M99.01 Segment al and somatic dysfunc tion of cervica l region JASSI FARLEY 12/10 [facility] OFFICE O/P EST LOW 20 MIN [id number] [id number] Diagnos is: ICD-10- CM S46.812 D Strain of musc/fa sc/tend at shldr/u p arm, left arm, subs DONELL,T DEVONTE 12/10 [facility] Outpatient Encounter [id number] 12/12 [facility] OFF/OP EST FEBRUARY X REQ PHY/QHP [id number] [id number] Diagnos is: ICD-10- CM Z48.01 Encount er for change or removal of surgica l wound BRODERICK Wong G 12/25 [facility] Outpatient Encounter [id number] 12/30 [facility] Outpatient Encounter [id number] [id number] 01/06 [facility] [place]CT MANJ 1-2 REGIONS [id number] [id number] 454 Diagnos is: ICD-10- CM M99.01 Segment al and somatic dysfunc tion of cervica l region JASSI FARLEY 01/07 [facility] [place] [address]-9.65 [id number] Diagnos is: ICD-10- CM K02.52 Dental caries on pit and fissure surfc penetra t into dentin CARMEN IGBBS 01/09 [facility] Outpatient Encounter [id number] [id number] 01/12 [facility] Outpatient Encounter [id number] [id number] 01/13 [facility] Outpatient Encounter [id number] [id number] 01/13 [facility] Outpatient Encounter [id number] [id number] 01/16 [facility] [place]IROPRACT MANJ 1-2 REGIONS [id number] [id number] Diagnos is: ICD-10- CM M99.01 Segment al and somatic dysfunc tion of cervica l region JASSI FARLEY E 01/21 [facility] Outpatient Encounter [id number] [id number] 01/21 [facility] Outpatient Encounter [id number] [id number] 01/28 [facility] Outpatient Encounter [id number] [id number] 02/04 [facility] Outpatient Encounter [id number] [id number] 02/10 [facility] Outpatient Encounter [id number] [id number] 02/11 [facility] En[facility] [id number] [id number] 02/23 [facility] Outpatient Encounter [id number] [id number] SAMANTHASarah RICO L 02/26 [facility] Outpatient Encounter [id number] [id number] 03/02 [facility]-4 REGIONS [id number] [id number] Diagnos is: ICD-10- CM M99.01 Segment al and somatic dysfunc tion of cervica l region JASSI FARLEY E 03/04 [facility] OFF/OP EST MAY X REQ PHY/QHP [id number] [id number] Diagnos is: ICD-10- CM M25.511 Pain in right shoulde r INDY GONZALEZ D 03/04 [facility] OFFICE O/P EST MOD 30 MIN [id number] [id number] 647 Diagnos is: ICD-10- CM M25.512 Pain in left shoulde r BRODERICK COLLIER G 03/04 [facility] Outpatient Encounter [id number] [id number] 03/19 [facility] Outpatient Encounter [id number] [id number] 03/24 [facility] OFF/OP EST MAY X REQ PHY/QHP [id number] [id number] Diagnos is: ICD-10- CM K21.9 Gastro- esophag eal reflux disease without esophag itis Lopez SINGH 03/24 [facility]P EST MOD 30 MIN [id number] [id number] Diagnos is: ICD-10- CM K21.9 Gastro- esophag eal reflux disease without esophag itis BRODERICK COLLIER G 03/24 [facility] Outpatient Encounter [id number] 04/07 [facility] Outpatient Encounter [id number] [id number] 04/13 [facility] Outpatient Encounter [id number] [id number] 04/14 [facility] OFF/OP EST MAY X REQ PHY/QHP [id number] [id number] Diagnos is: ICD-10- CM K21.9 Gastro- esophag eal reflux disease without esophag itis INDY GONZALEZ D 04/14 [facility] Outpatient Encounter [id number] 04/28 [facility] [place] MANJ 3-4 REGIONS [id number] [id number] Diagnos is: ICD-10- CM M99.01 Segment al and somatic dysfunc tion of cervica l region JASSI FARLEY LAS E 04/28 [facility] Outpatient Encounter [id number] 05/06 [facility] Outpatient Encounter [id number] FRANCY GROSSMAN A 05/07 [facility] OFFICE O/P EST LOW 20 MIN [id number] [id number] Diagnos is: ICD-10- CM Z01.818 Encount er for other preproc edural examina tion MARQUITA LEVI ER E III 05/07 [facility] [place] [facility] [place]CT MANJ 3-4 REGIONS [id number] Diagnos is: ICD-10- CM M99.01 Segment al and somatic dysfunc tion of cervica l region JASSI FARLEY E 05/07 [facility] Out[place] Encounter [id number] 05/07 [facility] Social History Combined list of available smoking, tobacco, and other social history from Department of Defense and Veterans Affairs facilities. 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 Additional future care activities may be listed in the Assessment and Plan section. Date/Time Care Activity Care Activity Detail Facili ty 05/19/2025 AMBULATORY - MEDICINE AMBULATORY - [facility]ICI [place] [facility] [facility]
--- OUTSIDE RECORDS SUMMARY | 2025-05-09 16:56 | XMS_ITS | Clinical Summary ---
Author Organization [facility] Address [address] [place]: Epic Prelude ADT GEORGE JIMENEZ [address] Care Team Providers Care Wharf Tender Helper Name Role Phone Unavailable Primary Care Provider Unavailabl e Allergies No known active allergies Medications oxyCODONE-aceta minophen (Percocet) 5-325 mg tabletIndicatio ns:Hamstring tendinitis of right thigh Take 1 Tablet by mouth every 4 hours as needed for Pain, Moderate. Max Daily Amount: 6 Tablets 15 Tablet 06/11/2024 Active HYDROcodone-dusty taminophen (NORCO) 5-325 mg tabletIndicatio ns:Hamstring tendinitis of right thigh Take 1 Tablet by mouth every 8 hours as needed for Pain, Severe. Max Daily Amount: 3 Tablets 20 Tablet 07/07/2024 Active Active Problems No known active problems Encounters Date Type Department Care Team Description 04/07/2025 External Device Data [facility]CTION Provider, Abstract 03/04/2025 External Device Data [facility] Provider, Abstract 03/03/2025 External Device Data [facility] Provider, Abstract from Last 3 Months Social History Tobacco Use Types Packs/Day Years Used Date Smoking Tobacco: Never Smokeless Tobacco: Never Tobacco Cessation:Counseling Given: Not Answered Alcohol Use Standard Drinks/Week Comments Never 0 (1 standard drink = 0.6 oz pur e alcohol) Sex and Gender Information Value Date Recorded Sex Assigned at Not on file 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 Gender Identity Not on file Sexual Orientation Not on file Last Filed Vital Signs Vital Sign Reading Time Taken Comments Blood Pressure 126/84 06/11/2024 1:04 PM CDT Pulse - - Temperature - - Respiratory Rate - - Oxygen Saturation - - Inhaled Oxygen Concentration - - Weight 84.8 kg (187 lb) 07/07/2024 1:05 PM CDT Height 172.7 cm (5' 8 ) 07/07/2024 1:05 PM CDT Body Mass Index 28.43 07/07/2024 1:05 PM CDT Plan of Treatment Health Maintenance Due Date Last Done Comments Pre-Diabetes and Diabetes Screening 1968 HEPATITIS B VACCINES (1 of 3 - 19+ 3-dose series) 1987 COLORECTAL SCREENING 2013 Colorectal Cancer Screening 2013 FIT-DNA Q 3 years 2013 FIT/FOBT Q 1 year 2013 Flex Sig/CT Colonography Q 5 years 2013 INFLUENZA VACCINE (#1) 2025 DTAP/TDAP/TD VACCINES (2 - Td or Tdap) 11/01/2026, 05/14/2003 ZOSTER VACCINE Completed 09/20/2023, 06/14/2022 Insurance * Guarantor: [employer] [facility] B (C) Account Type Relation to Patient Date of Phone Billing Address [employer] [place] [address] [place] [employer] [address] [place] [address] [employer]
--- OUTSIDE RECORDS SUMMARY | 2025-05-09 16:56 | XMS_ITS | Encounter Summary ---
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); Other Dyschromia; Neoplasm of Uncertain Behavior of Skin Social History Tobacco Use Types Packs/Day Years Used Date Smoking Tobacco: Never Assessed Sex and Gender Information Value Date Recorded Sex Assigned at Not on file 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
--- OUTSIDE RECORDS SUMMARY | 2025-05-09 16:56 | XMS_ITS | Encounter Summary ---
Author Organization [facility] Address [address] [place] [address] Care Team Providers Care Force Dispatcher Name Role Phone Unavailable Primary Care Provider Unavailabl e Encounter Details Date Type Department Care Team (Latest Contact Info) Description 06/28/2007 Outpatient Historical [facility] [address] [place] [address] Carlyle Hernandez MD NO ADDRESS ON FILE Benign Neoplasm of Skin of Trunk, except Scrotum (Primary Dx) Social History Tobacco Use Types Packs/Day Years Used Date Smoking Tobacco: Never Assessed Sex and Gender Information Value Date Recorded Sex Assigned at Not on file 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
--- OUTSIDE RECORDS SUMMARY | 2025-05-09 16:56 | XMS_ITS | Patient Health Record ---
Author Organization [facility] Address [address] [place] [address] Support Name Relationship Address , Marlen Mejia Emergency Contact Unknown Unavailable Jesse Mejia Guarantor Unknown [phone] Care Team Providers Care Medical Csr Name Role Phone Krystyna RENDON, Kim Primary Care Provider UnavailFatmata Salazar Unavailable [phone] Migration, Provider Unavailable Unavailable Kim Greenwood Unavailable [phone] Brent Andrade Unavailable [phone] Allergies Allergen (clinical drug ingredient) Drug/Non Drug Allergy documented on EMR Reaction Allergy Type Onset Date Status No Known Drug Allergy Unknown Drug Allergy Active Results Component Value Reference Range Flag Notes Urine Drug Screen (cup read) - 21715 Reviewed date:09/03/2024 02:37:26 PM Interpretation: Performing Lab: Notes/Report: zzzUrine Drug Screen (confir mation by instrument) - 48963 Reviewed date:09/05/2024 04:32:56 PM Interpretation: Performing Lab: Notes/Report: Fluoro Needle For Placement - Spine 15077 Reviewed date:09/29/2024 09:40:58 AM Interpretation: Performing Lab: Notes/Report: Urine Drug Screen (cup read) - [id number] Reviewed date:02/10/2025 11:09:29 AM Interpretation:Negative Performing Lab: Notes/Report: Negative Tox Results Reviewed date:01/07/2025 02:04:19 PM Interpretation: Performing Lab: Notes/Report: Urine Drug Screen (cup read) - 25038 Reviewed date:01/05/2025 09:47:31 AM Interpretation:Negative Performing Lab: Notes/Report: Negative Urine Drug Screen (cup read) - 96281 Reviewed date:11/11/2024 09:42:30 AM Interpretation:Negative Performing Lab: Notes/Report: Negative Fluoro Needle For Placement - Spine 61323 Reviewed date:10/13/2024 04:36:07 PM Interpretation: Performing Lab: Notes/Report: Urine Confirmation Panel (in strument) - [id number] Reviewed date:01/07/2025 01:40:02 PM Interpretation: Performing Lab: Notes/Report: 6-Acetylmorphine 0 <6 ng/mL N This emily t was developed and its performance characteristics determined by [facility]. It has not been cleared or approved by the U.S. Food and Drug Administration. 7-Aminoclonazepam 0 <60 ng/mL N This te st was developed and its performance characteristics determined by [facility]. It has not been cleared or approved by the U.S. Food and Drug Administration. Alprazolam 0 <60 ng/mL N This test was developed and its performance characteristics determined by [facility]. It has not been cleared or approved by the U.S. Food and Drug Administration. Amphetamine 0 <75 ng/mL N This test was developed and its performance characteristics determined by [facility]. It has not been cleared or approved by the U.S. Food and Drug Administration. aOH-Alprazolam 0 <60 ng/mL N This test was developed and its performance characteristics determined by [facility]. It has not been cleared or approved by the U.S. Food and Drug Administration. Buprenorphine 0.0 <7.5 ng/mL N This test w as developed and its performance characteristics determined by [facility]. It has not been cleared or approved by the U.S. Food and Drug Administration. Norbuprenorphine 0.0 <37.5 ng/mL N This te st was developed and its performance characteristics determined by [facility]. It has not been cleared or approved by the U.S. Food and Drug Administration. Carisoprodol 0 <75 ng/mL N This test wa s developed and its performance characteristics determined by [facility]. It has not been cleared or approved by the U.S. Food and Drug Administration. Codeine 0 <75 ng/mL N This test was developed and its performance characteristics determined by [facility]. It has not been cleared or approved by the U.S. Food and Drug Administration. EDDP 0 <75 ng/mL N This test was developed and its performance characteristics determined by [facility]. It has not been cleared or approved by the U.S. Food and Drug Administration. Fentanyl 0 <6 ng/mL N This test was developed and its performance characteristics determined by [facility]. It has not been cleared or approved by the U.S. Food and Drug Administration. Hydrocodone 0 <75 ng/mL N This test was developed and its performance characteristics determined by [facility]. It has not been cleared or approved by the U.S. Food and Drug Administration. Hydromorphone 0 <75 ng/mL N This test w as developed and its performance characteristics determined by [facility]. It has not been cleared or approved by the U.S. Food and Drug Administration. Lorazepam 0 <60 ng/mL N This test was developed and its performance characteristics determined by [facility]. It has not been cleared or approved by the U.S. Food and Drug Administration. MDMA 0 <75 ng/mL N This test was developed and its performance characteristics determined by [facility]. It has not been cleared or approved by the U.S. Food and Drug Administration. Meperidine 0.0 <37.5 ng/mL N This test was developed and its performance characteristics determined by [facility]. It has not been cleared or approved by the U.S. Food and Drug Administration. Meprobamate 0 <75 ng/mL N This test was developed and its performance characteristics determined by [facility]. It has not been cleared or approved by the U.S. Food and Drug Administration. Methamphetamine 0 <75 ng/mL N This test was developed and its performance characteristics determined by [facility]. It has not been cleared or approved by the U.S. Food and Drug Administration. Methadone 0 <75 ng/mL N This test was developed and its performance characteristics determined by [facility]. It has not been cleared or approved by the U.S. Food and Drug Administration. Morphine 0 <75 ng/mL N This test was developed and its performance characteristics determined by [facility]. It has not been cleared or approved by the U.S. Food and Drug Administration. Nordiazepam 0 <60 ng/mL N This test was developed and its performance characteristics determined by [facility]. It has not been cleared or approved by the U.S. Food and Drug Administration. Norfentanyl 0 <6 ng/mL N This test was developed and its performance characteristics determined by [facility]. It has not been cleared or approved by the U.S. Food and Drug Administration. Normeperidine 0.0 <37.5 ng/mL N This test was developed and its performance characteristics determined by [facility]. It has not been cleared or approved by the U.S. Food and Drug Administration. O-desmethyltramadol 19 <75 ng/mL N This test was developed and its performance characteristics determined by [facility]. It has not been cleared or approved by the U.S. Food and Drug Administration. Oxazepam 0 <60 ng/mL N This test was developed and its performance characteristics determined by [facility]. It has not been cleared or approved by the U.S. Food and Drug Administration. Oxycodone 0.0 <37.5 ng/mL N This test was developed and its performance characteristics determined by [facility]. It has not been cleared or approved by the U.S. Food and Drug Administration. Oxymorphone 0 <75 ng/mL N This test was developed and its performance characteristics determined by [facility]. It has not been cleared or approved by the U.S. Food and Drug Administration. Phencyclidine 0.0 <7.5 ng/mL N This test w as developed and its performance characteristics determined by [facility]. It has not been cleared or approved by the U.S. Food and Drug Administration. Tapentadol 0.0 <37.5 ng/mL N This test was developed and its performance characteristics determined by [facility]. It has not been cleared or approved by the U.S. Food and Drug Administration. Temazepam 0 <60 ng/mL N This test was developed and its performance characteristics determined by [facility]. It has not been cleared or approved by the U.S. Food and Drug Administration. Tramadol 1781 <75 ng/mL H This test was developed and its performance characteristics determined by [facility]. It has not been cleared or approved by the U.S. Food and Drug Administration. Norhydrocodone 0 <75 ng/mL N This test was developed and its performance characteristics determined by [facility]. It has not been cleared or approved by the U.S. Food and Drug Administration. Noroxycodone 0 <38 ng/mL N This test wa s developed and its performance characteristics determined by [facility]. It has not been cleared or approved by the U.S. Food and Drug Administration. Pregabalin 0 <225 ng/mL N This test was developed and its performance characteristics determined by [facility]. It has not been cleared or approved by the U.S. Food and Drug Administration. Gabapentin 0 <225 ng/mL N This test was developed and its performance characteristics determined by [facility]. It has not been cleared or approved by the U.S. Food and Drug Administration. Benzoylecgonine 0.0 <37.5 ng/mL N This emily t was developed and its performance characteristics determined by [facility]. It has not been cleared or approved by the U.S. Food and Drug Administration. 4-Hydroxy Xylazine 0 <25 ng/mL N This t est was developed and its performance characteristics determined by [facility]. It has not been cleared or approved by the U.S. Food and Drug Administration. Reason For Referral No Information Medications Medication SIG (Take, Route, Frequency, Duration) Notes Start Date End Date Status traMADol HCl 50 MG Tablet 1 tablet Orally three times a day; Duration: 30 days As needed do not exceed 3 per day Fill on 05-11-25- to allow for mail time 04/13/2025 06/10/2025 Active Social History Social History Additional Details Category Social Info Options Details Migrated Social History Migrated Social History Alcoholic beverages? - No, Currently on disability? - No, Smoking - No, Smoking status (MU) - Unknown if ever smoked Problems Problem Type SNOMED Code ICD Code Onset Dates Problem Status W/U Status Risk Notes Problem Chronic pain syndrome (004235202) Chronic pain syndrome (G89.4) 04/08/20 24 Active confirmed Problem Osteoarthritis (526258495) Unspecified osteoarthritis, unspecified site (M19.90) 04/08/20 Active confirmed Problem Solitary sacroiliitis (420394505) Sacroiliitis, not elsewhere classified (M46.1) 04/08/20 24 Active confirmed Problem Lumbosacral spondylosis without myelopathy (disorder) (24281832) Spondylosis without myelopathy or radiculopathy, lumbosacral region (M47.817) 04/08/20 24 Active confirmed Problem Radiculopathy due to lumbar intervertebral disc disorder (893263042367701) Intervertebral disc disorders with radiculopathy, lumbar 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) 04/08/20 Active confirmed Problem Lumbosacral radiculopathy (2916951) Radiculopathy, lumbosacral region (M54.17) Active confirmed Problem High risk drug monitoring status (941165182) Admission for long-term opiate analgesic use (Z79.891) Active confirmed Vital Signs Height-cm 172.72 cm 02/10/2025 Weight-kg 86.64 kg 02/10/2025 Height 68 in 02/10/2025 Weight 191 lbs 02/10/2025 BMI 29.04 kg/m2 02/10/2025 Procedures Procedure Date Ordered Date Performed Result Body Sit e Neurotomy Lumbar/Sacral, 2 o r more levels - 59639, 47936 09/29/2024 09/29/2024 N/A Conscious Sedation, Professi onal Only - 14890 09/29/2024 09/29/2024 N/A Epidural, Lumbar/Sacral (Cau ej), w/ imaging guidance - 59044 10/13/2024 10/13/2024 N/A Conscious Sedation, Professi onal Only - 02487 10/13/2024 10/13/2024 N/A Epidural, Lumbar/Sacral (Cau ej), w/ imaging guidance - 63514 01/12/2025 01/12/2025 N/A Conscious Sedation, Professi onal Only - 46751 01/12/2025 01/12/2025 N/A Epidural, Lumbar/Sacral (Cau ej), w/ imaging guidance - 00176 04/13/2025 04/13/2025 N/A Conscious Sedation, Professi onal Only - 89741 04/13/2025 04/13/2025 N/A Encounters Encounter Location Date Provider Diagnosis [facility] [address] [facility] [place] [address] 07/28/2024 Brent Andrade [facility] [address] [facility] [place] [address] 04/13/2025 Brent Andrade Radiculopathy, lumbosacral region M54.17 [facility] [address] [facility] [place] [address] 01/12/2025 Brent Andrade Radiculopathy, lumbosacral region M54.17 [facility] [address] [facility] [place] [address] 02/10/2025 Fatmata Lively Chronic pain syndrom e G89.4 ; Radiculopathy, lumbosacral region M54.17 ; Spondylosis without myelopathy or radiculopathy, lumbosacral region M47.817 ; Sacroiliitis, not elsewhere classified M46.1 ; Unspecified osteoarthritis, unspecified site M19.90 and Admission for long-term opiate analgesic use Z79.891 [facility] [address] [facility] [place] [address] 01/05/2025 Fatmata Lively Chronic pain syndrom e G89.4 ; Radiculopathy, lumbosacral region M54.17 ; Spondylosis without myelopathy or radiculopathy, lumbosacral region M47.817 ; Sacroiliitis, not elsewhere classified M46.1 ; Unspecified osteoarthritis, unspecified site M19.90 and Admission for long-term opiate analgesic use Z79.891 [facility] [address] [facility] [place] [address] 11/11/2024 Fatmata Lively Chronic pain syndrom e G89.4 ; Radiculopathy, lumbosacral region M54.17 ; Spondylosis without myelopathy or radiculopathy, lumbosacral region M47.817 ; Sacroiliitis, not elsewhere classified M46.1 ; Unspecified osteoarthritis, unspecified site M19.90 and Admission for long-term opiate analgesic use Z79.891 [facility] [address] [facility] [place] [address] 09/03/2024 Kim Krystyna Chronic pain syndrom e G89.4 ; Intervertebral disc disorders with radiculopathy, lumbar region M51.16 ; Spondylosis without myelopathy or radiculopathy, lumbosacral region M47.817 ; Sacroiliitis, not elsewhere classified M46.1 ; Myalgia, other site M79.18 ; Unspecified osteoarthritis, unspecified site M19.90 and Admission for long-term opiate analgesic use Z79.891 [facility] [address] [facility] [place] [address] 06/30/2024 Fatmata Rutledge [facility] [address] [place] [address] 10/13/2024 Brent Andrade Radiculopathy, lumbosacral region M54.17 [facility] [address] [place] [address] 09/29/2024 Brent Andrade Spondylosis without myelopathy or radiculopathy, lumbosacral region M47.817 Migrated[facility]Facility 0 0 08/10/2024 Provider Migration [facility]rated[facility]Facility 0 0 08/09/2024 Provider Migration [facility] [address] [place] [address] 04/13/2025 Kim Krystyna Spondylosis without myelopathy or radiculopathy, lumbosacral region M47.817 [facility] [address] [place] [address] 02/10/2025 Kim Krystyna Spondylosis without myelopathy or radiculopathy, lumbosacral region M47.817 [facility] [address] [place] [address] 01/05/2025 Kim Krystyna Chronic pain syndrom e G89.4 and Spondylosis without myelopathy or radiculopathy, lumbosacral region M47.817 [facility] [address] [place] [address] 11/11/2024 Kim Krystyna Chronic pain syndrom e G89.4 Assessments Encounter Date Diagnosis (ICD Code) Assessment Notes Treatment Notes Treatment Clinical Notes Section Notes 09/03/2024 Chronic pain syndrome (ICD-10 - G89.4) 02/10/2025 Spondylosis without myelopathy or radiculopathy, lumbosacral region (ICD-10 - M47.817) 04/13/2025 Radiculopathy, lumbosacral region (ICD-10 - M54.17) 04/13/2025 Spondylosis without myelopathy or radiculopathy, lumbosacral region (ICD-10 - M47.817) 09/03/2024 Intervertebral disc disorders with radiculopathy, lumbar region (ICD-10 - M51.16) 09/29/2024 Spondylosis without myelopathy or radiculopathy, lumbosacral region (ICD-10 - M47.817) 10/13/2024 Radiculopathy, lumbosacral region (ICD-10 - M54.17) 11/11/2024 Chronic pain syndrome (ICD-10 - G89.4) I had a nice discussion with the patient today in regard to his chronic pain and current treatment plan. Patient reports great satisfaction from with his medication regimen and interventional therapy. Patient denies any overall health changes since his last office visit. We will continue his current medication regimen at this time. Postoperative pain medication management was discussed with the patient today as he is anticipating surgery on a torn hamstring. He voiced understanding. Patient will return to clinic in 2 months to continue assessment and evaluation. The patient continues with chronic pain requiring treatment to help restore function and improve quality of life. Risks of opioid therapy as well as interaction of opioids with alcohol, illicit drugs, muscle relaxers, and other sedative medications are reviewed briefly with patient again today. The patient has trialed all other reasonable treatment options and uses the medication to alleviate pain in order to remain active and rest with less pain. No clinically relevant medication side effects are noted. Last UDS and [place] [employer] reviewed today. Patient is advised that best long-term goals include increased activity, core strengthening, proper weight management, coping strategies, avoidance of painful triggers, and targeted interventional therapy. We will see the patient for routine follow up in accordance with all clinic policies. We did remind patient today of current guidelines to decrease opioid when possible. We will continue to stress nonopioid treatment. RECOMMEND THERAPEUTIC LUMBAR EPIDURAL STEROID INJECTION, levels L4-5 The patient reports overall 50% improvement in function and decrease in pain for greater than one month from previous diagnostic SOBIA. The patient also reports improvement in tolerance to activities which generally cause pain. Based on the results of previous diagnostic SOBIA, a therapeutic SOBIA is recommended. Expectation from a successful therapeutic epidural steroid injection is at least 50-70% relief of pain from baseline and evidence of improved function for at least six to eight weeks after delivery. The goal of epidural steroid injections is to reduce pain and inflammation, restoring range of motion and, thereby, facilitating progress in more active treatment programs, and avoiding surgery. The procedure and risks were discussed with the patient including but not limited to infection, bleeding, neurological complications, side effects from medications, no change in pain, worsening of pain, or even . We also discussed conservative options, surgical options, and medical management with patient as well. The patient indicates understanding and wishes to proceed with the recommended treatment approach. The patient was given written information about the procedure and all questions were answered. URINE TESTING TODAY; POINT OF SERVICE Urine drug screening will be performed today to monitor compliance with opioid therapy or to serve as a baseline screen for a patient who may be a candidate for opioid therapy in the future, pending UDS results. We will monitor with in-office testing (rapid testing) today and review the results prior to dispensing prescription, as well. Patient has been made aware of this policy. Refill traMADol HCl Tablet, 50 MG, Orally, 90 Tablet, 1 tablet, three times a day, 30 days, Refills=1 Continue tiZANidine HCl Tablet, 4 MG, Orally, 90 Tablet, 1 tablet, Three times a day, 30 days, Refills=1 11/11/2024 Radiculopathy, lumbosacral region (ICD-10 - M54.17) 11/11/2024 Chronic pain syndrome (ICD-10 - G89.4) 01/05/2025 Chronic pain syndrome (ICD-10 - G89.4) I had a nice discussion with the patient today in regard to his chronic pain and current treatment plan. Patient reports great satisfaction from with his medication regimen and interventional therapy. Patient denies any overall health changes since his last office visit. We will continue his current medication regimen at this time. Postoperative pain medication management was discussed with the patient today as he is anticipating surgery on a torn hamstring. He voiced understanding. Patient will return to clinic in 2 months to continue assessment and evaluation. The patient continues with chronic pain requiring treatment to help restore function and improve quality of life. Risks of opioid therapy as well as interaction of opioids with alcohol, illicit drugs, muscle relaxers, and other sedative medications are reviewed briefly with patient again today. The patient has trialed all other reasonable treatment options and uses the medication to alleviate pain in order to remain active and rest with less pain. No clinically relevant medication side effects are noted. Last UDS and [place] [employer] reviewed today. Patient is advised that best long-term goals include increased activity, core strengthening, proper weight management, coping strategies, avoidance of painful triggers, and targeted interventional therapy. We will see the patient for routine follow up in accordance with all clinic policies. We did remind patient today of current guidelines to decrease opioid when possible. We will continue to stress nonopioid treatment. The procedure and risks were discussed with the patient including but not limited to infection, bleeding, neurological complications, side effects from medications, no change in pain, worsening of pain, or even . We also discussed conservative options, surgical options, and medical management with patient as well. The patient indicates understanding and wishes to proceed with the recommended treatment approach. The patient was given written information about the procedure and all questions were answered. RECOMMEND URINE TESTING TODAY Urine drug screening will be performed today to monitor compliance with opioid therapy or to serve as a baseline screen for a patient who may be a candidate for opioid therapy in the future, pending UDS results. We will monitor with in-office testing (rapid testing) today and review the results prior to dispensing prescription. All positive results will be sent for quantitative analysis to ensure accuracy and quantify amounts. Any expected positive results that return negative will also be sent for quantitative analysis. Any questionable read or any medication we cannot test for in the office confidently will be sent for quantitative analysis, as well. Patient has been made aware of this policy and agrees to abide by our urine testing policy. Refill traMADol HCl Tablet, 50 MG, Orally, 90 Tablet, 1 tablet, three times a day, 30 days, Refills=0 Refill tiZANidine HCl Tablet, 4 MG, Orally, 90 Tablet, 1 tablet, Three times a day, 30 days, Refills=0 01/05/2025 Radiculopathy, lumbosacral region (ICD-10 - M54.17) 01/05/2025 Chronic pain syndrome (ICD-10 - G89.4) 01/12/2025 Radiculopathy, lumbosacral region (ICD-10 - M54.17) 02/10/2025 Chronic pain syndrome (ICD-10 - G89.4) I had a nice discussion with the patient today in regard to his chronic pain and current treatment plan. Patient reports great satisfaction from with his medication regimen and interventional therapy. Patient denies any overall health changes since his last office visit. We will continue his current medication regimen at this time. Patient notes that he would like to proceed with repeat LESI as he finds it fairly beneficial. He also notes he would like to continue his tramadol 50 mg up to 3 times a a day. Patient will return to clinic after his procedure to continue assessment and evaluation. The patient continues with chronic pain requiring treatment to help restore function and improve quality of life. Risks of opioid therapy as well as interaction of opioids with alcohol, illicit drugs, muscle relaxers, and other sedative medications are reviewed briefly with patient again today. The patient has trialed all other reasonable treatment options and uses the medication to alleviate pain in order to remain active and rest with less pain. No clinically relevant medication side effects are noted. Last UDS and [facility] [employer] reviewed today. Patient is advised that best long-term goals include increased activity, core strengthening, proper weight management, coping strategies, avoidance of painful triggers, and targeted interventional therapy. We will see the patient for routine follow up in accordance with all clinic policies. We did remind patient today of current guidelines to decrease opioid when possible. We will continue to stress nonopioid treatment. RECOMMEND THERAPEUTIC LUMBAR EPIDURAL STEROID INJECTION, levels L4-5 The patient reports overall 50% improvement in function and decrease in pain for greater than one month from previous diagnostic SOBIA. The patient also reports improvement in tolerance to activities which generally cause pain. Based on the results of previous diagnostic SOBIA, a therapeutic SOBIA is recommended. Expectation from a successful therapeutic epidural steroid injection is at least 50-70% relief of pain from baseline and evidence of improved function for at least six to eight weeks after delivery. The goal of epidural steroid injections is to reduce pain and inflammation, restoring range of motion and, thereby, facilitating progress in more active treatment programs, and avoiding surgery. The procedure and risks were discussed with the patient including but not limited to infection, bleeding, neurological complications, side effects from medications, no change in pain, worsening of pain, or even . We also discussed conservative options, surgical options, and medical management with patient as well. The patient indicates understanding and wishes to proceed with the recommended treatment approach. The patient was given written information about the procedure and all questions were answered. URINE TESTING TODAY; POINT OF SERVICE Urine drug screening will be performed today to monitor compliance with opioid therapy or to serve as a baseline screen for a patient who may be a candidate for opioid therapy in the future, pending UDS results. We will monitor with in-office testing (rapid testing) today and review the results prior to dispensing prescription, as well. Patient has been made aware of this policy. Refill traMADol HCl Tablet, 50 MG, Orally, 90 Tablet, 1 tablet, three times a day, 30 days, Refills=2 Discontinue tiZANidine HCl Tablet, 4 MG, Orally, 90 Tablet, 1 tablet, Three times a day, 30 days, Refills=0 02/10/2025 Radiculopathy, lumbosacral region (ICD-10 - M54.17) 01/05/2025 Spondylosis without myelopathy or radiculopathy, lumbosacral region (ICD-10 - M47.817) 11/11/2024 Spondylosis without myelopathy or radiculopathy, lumbosacral region (ICD-10 - M47.817) 09/03/2024 Spondylosis without myelopathy or radiculopathy, lumbosacral region (ICD-10 - M47.817) 09/03/2024 Sacroiliitis, not elsewhere classified (ICD-10 - M46.1) 11/11/2024 Sacroiliitis, not elsewhere classified (ICD-10 - M46.1) 01/05/2025 Sacroiliitis, not elsewhere classified (ICD-10 - M46.1) 02/10/2025 Spondylosis without myelopathy or radiculopathy, lumbosacral region (ICD-10 - M47.817) 01/05/2025 Spondylosis without myelopathy or radiculopathy, lumbosacral region (ICD-10 - M47.817) 02/10/2025 Sacroiliitis, not elsewhere classified (ICD-10 - M46.1) 01/05/2025 Unspecified osteoarthritis, unspecified site (ICD-10 - M19.90) 09/03/2024 Myalgia, other site (ICD-10 - M79.18) 11/11/2024 Unspecified osteoarthritis, unspecified site (ICD-10 - M19.90) 11/11/2024 Admission for long-term opiate analgesic use (ICD-10 - Z79.891) 02/10/2025 Unspecified osteoarthritis, unspecified site (ICD-10 - M19.90) 01/05/2025 Admission for long-term opiate analgesic use (ICD-10 - Z79.891) 09/03/2024 Unspecified osteoarthritis, unspecified site (ICD-10 - M19.90) 02/10/2025 Admission for long-term opiate analgesic use (ICD-10 - Z79.891) 09/03/2024 Admission for long-term opiate analgesic use (ICD-10 - Z79.891) Plan Of Treatment Next Appt Details Provider Name:Fatmata torres, 05/12/2025 09:20:00 AM, [address] [place], [id number], Insurance Providers Payer Name Payer Address Payer Phone Subscriber Number Group Number Insured Name Patient Relationship to Insured Coverage Start Date Coverage End Date [employer] [address] [place] [phone] [id number] Jesse Mejia Self - patient is the insured 2024 [employer] [address] [place] [phone] [id number] Jesse Mejia Self - patient is the insured Medical (General) History Medical History History ICD Code Arthritis, Surgical History Surgery Date(Month/Year) Ear tube placement Umbilical hernia repair - [facility] Since 03-04 hernia inguinal - [facility] Since 04-04 Removal of lipomas
--- OUTSIDE RECORDS SUMMARY | 2025-05-09 16:56 | XMS_ITS | Clinical Summary ---
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 Name Role Phone Unavailable Primary Care Provider Unavailabl e Social History Tobacco Use Types Packs/Day Years Used Date Smoking Tobacco: Never Assessed Sex and Gender Information Value Date Recorded Sex Assigned at Not on file Legal Sex Male 6:[address]PER[address] Gender Identity Not on file Sexual Orientation Not on file Plan of Treatment Health Maintenance Due Date Last Done Comments DTAP/TDAP/TD VACCINES (1 - Tdap) 1987 HEPATITIS B VACCINES (1 of 3 - 19+ 3-dose series) 06/16 COLORECTAL SCREENING 2013 Colorectal Cancer Screening 2013 FIT-DNA Q 3 years 2013 FIT/FOBT Q 1 year 2013 Flex Sig/CT Colonography Q 5 years 2013 ZOSTER VACCINE (1 of 2) 2018 INFLUENZA VACCINE (#1) 2025
[2025-05-09 17:00] VITALS: BP 130/80; PULSE 56; RESP 18; TEMP 36.7; O2SAT 98; BMI 28.8
--- NOTE | 2025-05-09 18:15 | W.ED.EYEPROB ---
HPI - Eye Problem General: Chief complaint: Eye Problems Stated complaint: rt eye inj Time Seen by Provider: 05/09/25 17:54 Source: patient Mode of arrival: ambulatory Limitations: no limitations History of Present Illness: Patient is a 54-year-old male that presents to the emergency department with redness, clear drainage and foreign body sensation in the right eye. The patient states he was shoveling some sawdust yesterday before the symptoms began. He denies any traumatic injury to the eye. He states he thinks he may have got some sawdust in the eye and began having problems last night. He denies any fever or chills. He states the light does bother the eye. He states he had some drops from his eye doctor that he has been using but they have not been helping. He is unsure what the eyedrop is. He has not been using any artificial tears in the eye. He presents to the emergency department for further evaluation and treatment. Associated symptoms: Denies fever(s), headache(s), nausea, neck pain or vomiting Related Data Home Medications ?Medication ?Instructions ?Recorded ?Confirmed cyclobenzaprine 10 mg tablet 10 mg PO PRN 10/20/19 04/30/25 ibuprofen 800 mg tablet 800 mg PO TID PRN Pain 10/20/19 04/30/25 cetirizine 10 mg tablet (Zyrtec) 10 mg PO DAILY PRN Allergy Symptoms 02/15/21 04/30/25 fluticasone propionate 50 2 spray intranasal DAILY PRN 02/15/21 04/30/25 mcg/actuation nasal Allergy Symptoms spray,suspension sildenafil 100 mg tablet 50 mg PO PRN 02/15/21 04/30/25 alirocumab 75 mg/mL subcutaneous 75 mg SUBCUT Q14D 05/18/21 04/30/25 pen injector Previous Rx's ?Medication ?Instructions ?Recorded Custom Sole Supports #1 ea 01/01/23 Custom Molded Inserts #1 ea 04/10/23 hydrocodone 7.5 mg-acetaminophen 1 tab PO Q6H PRN pain 7 days #28 09/04/23 325 mg tablet tabs ciprofloxacin HCl 0.3 % eye drops See Rx Instructions ophthalmic 05/09/25 (eye) .COMPLEX #5 mL Allergies Allergy/AdvReac Type Severity Reaction Status Date / Time No Known Allergies Allergy Verified 04/30/25 11:16 Review of Systems General: Reports: 10 or more systems reviewed and unremarkable except in HPI and below Const: Denies: fever(s), chills or body aches Eyes: Reports: eye discharge, eye redness and other (Foreign body sensation in right eye); Denies: change in vision ENMT: Denies: throat pain or swelling of lips/tongue Card: Denies: chest pain Resp: Denies: dyspnea, productive cough, non-productive cough or wheezing GI: Denies: abdominal pain, nausea or vomiting : Denies: flank pain Musc: Denies: neck pain or back pain Skin/Breast: Denies: rash, pruritus or erythema Neuro: Denies: headache(s), numbness in extremities or weakness in extremities Psych: Denies: anxiety Endo: Denies: polyuria or polydipsia Parmjit/Lymph: Denies: easy bruising, easy bleeding or petechiae All/Imm: Denies: urticaria, throat swelling or tongue swelling PFSH ED PFSH: Medical History Decreased hearing Diverticular disease of intestine with perforation and abscess Diverticulitis Colon polyp Constipation Surgical History History of ear surgery History of umbilical hernia repair Status post right inguinal hernia repair History of neck surgery History of spinal surgery History of colonoscopy with polypectomy 2020 Family History Father Cancer Mother Cancer Social History Smoking and tobacco/nicotine status: never used tobacco/nicotine Alcohol intake: never Substance/Drug Use: never Marital status: Current occupational status: retired Physical Exam Const: COMMON NORMALS: no acute distress and alert GENERAL APPEARANCE: cooperative ORIENTATION/CONSCIOUSNESS: Yes awake HENMT: COMMON NORMALS: normocephalic, atraumatic, EAC's normal, TM's normal bilaterally and Normal external nose present HEAD & SCALP: normocephalic and atraumatic NOSE: Normal external nose present EXTERNAL AUDITORY CANAL: EAC's normal TYMPANIC MEMBRANE: TM's normal bilaterally MOUTH: Normal oral and palatal mucosa present Eye: COMMON NORMALS: Equal, round and reactive pupils present, EOMs intact bilaterally and negative for conjunctivae normal CONJUNCTIVA: No conjunctivae normal and Yes conjunctival abnormal positive right conjunctival injection and discharge (Watery); without chemosis and without subconjunctival hemmorhages CORNEA: Yes corneas normal and fluorescein used PUPIL: Yes Equal, round and reactive pupils present Neck/C-Spine: COMMON NORMALS: full ROM Resp: COMMON NORMALS: normal respiratory effort, No retractions and clear to auscultation bilaterally AUSCULTATION: clear to auscultation bilaterally, no crackles, no rales, no rhonchi and no wheezes Cardio: COMMON NORMALS: regular rhythm RATE: bradycardic RHYTHM: regular rhythm : COMMON NORMALS: Yes no CVA tenderness BLADDER/KIDNEY EXAM: Yes no CVA tenderness Back/Pelvis: COMMON NORMALS: no CVA tenderness and thoraco-lumbar ROM normal Extremity: COMMON NORMALS: normal to inspection and full ROM Neuro: SENSORIUM/ORIENTATION: Yes alert SPEECH: speech normal Psych: COMMON NORMALS: cooperative ATTITUDE: Yes calm Skin: COMMON NORMALS: no rashes or lesions noted GENERAL SKIN EXAM: no rashes or lesions noted Course Vital Signs: Vital signs: Vital Signs Temperature 98.0 F 05/09/25 17:00 Pulse Rate 56 L 05/09/25 17:00 Respiratory Rate 18 05/09/25 17:00 Blood Pressure 130/80 05/09/25 17:00 Pulse Oximetry 98 05/09/25 17:00 Oxygen Delivery Me thod Room Air 05/09/25 17:00 MDM - Eye Problem Medical Decision Making Patient was advised of the exam findings. Thankfully, the patient does not have a corneal abrasion and no fluorescein uptake on the cornea. He does have fairly significant conjunctivitis. There were no obvious foreign bodies noted underneath the upper or lower eyelids. 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 I also advised that he return to the emergency department with any worsening symptoms. The patient expressed understanding. Differential Diagnosis Likely corneal abrasion, conjunctivitis, acute iritis, hyphema, subconjunctival hemorrhage and corneal ulcer No radiology studies performed this visit Critical Care Time Critical Care Time: Critical Care Time: No Discharge Plan Discharge Patient Disposition: Home Clinical Impression: Acute conjunctivitis, right eye Qualifiers: Acute conjunctivitis type: unspecified Qualified Code(s): H10.31 - Unspecified acute conjunctivitis, right eye Condition: Stable Prescriptions: New ciprofloxacin HCl 0.3 % drops See Rx Instructions .ROUTE .COMPLEX Qty: 5 0RF Rx Instructions: put 1-2 drps in affected eye(s) every 2hr up to 8 times/day x2days; then 4 times/day x5days No Action alirocumab 75 mg/mL pen injector 75 mg SUBCUT Q14D Rx Instructions: inject into abdomen, thigh, or upper arm (deltoid muscle); rotate sites ibuprofen 800 mg tablet 800 mg PO TID PRN (Reason: Pain) cyclobenzaprine 10 mg tablet 10 mg PO PRN (DME) Custom Molded Inserts See Rx Instructions .ROUTE .MEDSUPPLY Qty: 1 0RF Rx Instructions: As directed hydrocodone-acetaminophen 7.5-325 mg tablet 1 tab PO Q6H PRN (Reason: pain) 7 Days Qty: 28 0RF (DME) Custom Sole Supports See Rx Instructions .Route .MEDSUPPLY Qty: 1 0RF Rx Instructions: As directed by [facility] patient cetirizine [Zyrtec] 10 mg Tablet 10 mg PO DAILY PRN (Reason: Allergy Symptoms) sildenafil 100 mg Tablet 50 mg PO PRN Rx Instructions: see pharmacy comments fluticasone propionate 50 mcg/actuation Fifty Six,Suspension 2 spray INTRANASAL DAILY PRN (Reason: Allergy Symptoms) Discharge Orders: Discharge ED (Routine); Ordered 05/09/25 Ordered By: Luis A Hernandez Referrals: Yusef Young, [Primary Care Provider, Emergency Medicine] Discharge Diet: Usual diet Discharge Activity: Resume usual activity Patient Instructions: Conjunctivitis (ED), Opioid Safety, Pain Management, Patient Portal & Jasmin Instructions Activity Restrictions/Additional Instructions: Use the eyedrops as directed: 1 to 2 drops in the right eye every 2 hours while awake for 2 days then 1 to 2 drops in the right eye 4 times a day for 5 days. [id number] artificial tears every 1-2 hours as needed for irritation. Follow-up with your eye doctor for recheck next week. Wash all clothing and bedding in hot water after you have been on the eyedrops for 24 hours to prevent reinfection. Return to the emergency department with any worsening symptoms. Print Language: Estonian Coding Level of Care Code ED Safety Risk Lead for Sebas Hancock
[2025-05-09] MEDS: ciprofloxacin 0.3% Op Soln 2.5 mL Btl 1 DROP EYE-RIGHT (18:43)
[2025-05-09] MEDS: tetracaine 0.5% Op Soln 4 mL Btl 1 DROP EYE-RIGHT (18:43)
== END 2025-05-09 18:57 | disposition home or self-care (01) ==
PROVIDERS: Emergency Provider Physician Assistant; PCP Emergency Medicine Emergency Medical Services
DX: H10.31 Unspecified acute conjunctivitis, right eye (principal)
CPT/HCPCS: 99283; J9999

== ENCOUNTER 2025-06-03 05:40 | Day surgery (SDC) | payer OTHER, SELFPAY ==
[2025-06-03] VITALS (10 sets, daily range): BP systolic 131–159; BP diastolic 82–101; PULSE 60–115; RESP 13–19; TEMP 36.3–36.9; O2SAT 90–97; BMI 28.8
--- NOTE | 2025-06-03 06:45 | ANES.PREANE2 ---
Pre-Anesthetic Assessment Height/Weight: Height 1.73 m Weight 86.183 kg Temp Pulse Resp BP Pulse Ox O2 Del Method 97.9 F 60 18 139/93 97 Room Air 06/03/25 05:57 06/03/25 05:57 06/03/25 05:57 06/03/25 05:57 06/03/25 05:57 06/03/25 06:06 Operation Date: 06/03/25 07:00 Proposed Procedures p LEFT Shoulder Labral Repair(Left) - Raghav Godinez MD s Acromioplasty(Left) - Raghav Godinez MD s POSSIBLE Rotator Cuff Repair - Open(Left) - Raghav Godinez MD Familial anesthetic complications: None Was Beta Norman taken within 24 hours: N/A Was Clonidine taken within 24 hours: N/A Last intake: Intake Last Liquid Date 06/02/25 Last Liquid Time 22:00 Last Solid Date 06/02/25 Last Solid Time 19:00 Social No alcohol and No tobacco Exam alert, oriented x 3, clear to auscultation bilaterally and regular rate & rhythm Airway Mallampati: Class II Dentition: full GI Gastroesophageal Reflux Disease Anesthetic Plan ASA status: 2 Anesthesia: General and Regional (specify below) Risk of > 500 ml blood loss (7ml/kg in children): No Medications/Allergies Home Medications ?Medication ?Instructions ?Recorded ?Confirmed ?Last Taken ?Type cyclobenzaprine 10 mg tablet 10 mg PO PRN 10/20/19 06/02/25 05/30/25 History ibuprofen 800 mg tablet 800 mg PO TID PRN Pain 10/20/19 06/02/25 05/31/25 History cetirizine 10 mg tablet (Zyrtec) 10 mg PO DAILY PRN Allergy Symptoms 02/15/21 06/02/25 Unknown History sildenafil 100 mg tablet 50 mg PO PRN 02/15/21 06/02/25 Unknown History Custom Molded Inserts #1 ea 04/10/23 06/02/25 Unknown Rx pantoprazole 40 mg tablet,delayed 40 mg PO DAILY 06/02/25 06/02/25 06/02/25 History release Allergies Allergy/AdvReac Type Severity Reaction Status Date / Time No Known Allergies Allergy Verified 06/02/25 13:35 [facility] Anesthesia Medical History (Updated 05/17/25 @ 00:00 by BKG Daemon) Decreased hearing Diverticular disease of intestine with perforation and abscess Diverticulitis Colon polyp Constipation Surgical History History of ear surgery History of umbilical hernia repair Status post right inguinal hernia repair History of neck surgery History of spinal surgery History of colonoscopy with polypectomy 2020 Family History Father Cancer Mother Cancer Social History Smoking and tobacco/nicotine status: never used tobacco/nicotine Alcohol intake: never Substance/Drug Use: never Marital status: Current occupational status: retired Anesthesia Procedures Nerve Block Nerve Block 1: Main Anesthesia: general anesthesia Time Out Performed: Yes Consent: requested by attending/covering physician, from patient, from other, risks and benefits reviewed and patient agrees to proceed Nerve block location: interscalene (L) Anesthesia monitors applied: pulse oximetry, EKG, BP cuff and oxygen Nerve block position: semi sitting Anesthetic Used: ropivicaine 0.5% (20 ml) and with decadron (4 mg) Ultrasound used to: recognize landmarks, visualize and ID brachial plexus, in supraclavicular region and visualize and ID interscalene groove Interscalene/Femoral BLK: 2 stimuplex 22 g needle used for position and inplane approach and visualize local anesthetic spread Injection: neg aspiration of heme Patient Tolerated Procedure: well Complications: none
--- NOTE | 2025-06-03 06:52 | W.PM.OPSFHP ---
Same Day Surgery H&P Indication for Procedure/HPI DATE OF PROCEDURE: June 03, 2025 CHIEF COMPLAINT/INDICATIONFOR SURGICAL PROCEDURE: Left shoulder pain PREOP DIAGNOSIS: Internal derangement with a torn rotator cuff PLANNED PROCEDURE: Operation Date: 06/03/25 07:00 Proposed Procedures p LEFT Shoulder Labral Repair(Left) - MD dennys Villarreal Acromioplasty(Left) - MD dennys Villarreal POSSIBLE Rotator Cuff Repair - Open(Left) - Raghav Godinez MD Medications/Allergies* Home Medications ?Medication ?Instructions ?Recorded ?Confirmed ?Type cyclobenzaprine 10 mg tablet 10 mg PO PRN 10/20/19 06/02/25 History ibuprofen 800 mg tablet 800 mg PO TID PRN Pain 10/20/19 06/02/25 History cetirizine 10 mg tablet (Zyrtec) 10 mg PO DAILY PRN Allergy Symptoms 02/15/21 06/02/25 History sildenafil 100 mg tablet 50 mg PO PRN 02/15/21 06/02/25 History pantoprazole 40 mg tablet,delayed 40 mg PO DAILY 06/02/25 06/02/25 History release Allergies/Adverse Reactions Allergy/AdvReac Type Severity Reaction Status Date / Time No Known Allergies Allergy Verified 06/02/25 13:35 Pertinent History/Comorbid Conditions* Medical History (Updated 05/17/25 @ 00:00 by KEVIN Preciado) Decreased hearing Diverticular disease of intestine with perforation and abscess Diverticulitis Colon polyp Constipation Surgical History (Updated 08/31/23 @ 06:26 by Silvestre Jeffery DPM) History of ear surgery History of umbilical hernia repair Status post right inguinal hernia repair History of neck surgery History of spinal surgery History of colonoscopy with polypectomy 2020 Family History (Updated 10/20/19 @ 08:43 by Terese Adan LPN) Cancer Father Mother Social History Smoking and tobacco/nicotine status: never used tobacco/nicotine Alcohol intake: never Substance/Drug Use: never Marital status: Current occupational status: retired Pertinent Exam Findings alert, oriented x 3, clear to auscultation bilaterally, regular rate & rhythm and operative site marked Recommendations Surgery/Procedure today (Left shoulder arthroscopy with all indicated procedures) Coding Level of Care Code Acute Code for Sebas Hancock
--- NOTE | 2025-06-03 06:54 | W.PM.OPSUD ---
Surgery/Procedure H&P Update DATE OF PROCEDURE: June 03, 2025 DATE H&P PERFORMED: 04/30/25 PREOP DIAGNOSIS: Internal derangement with a torn rotator cuff PLANNED PROCEDURE: Operation Date: 06/03/25 07:00 Proposed Procedures p LEFT Shoulder Labral Repair(Left) - Raghav Godinez MD s Acromioplasty(Left) - MD dennys Villarreal POSSIBLE Rotator Cuff Repair - Open(Left) - Raghav Godinez MD
[2025-06-03] MEDS: ceFAZolin 2,000 mg SDV 2000 MG IVP (07:07)
--- NOTE | 2025-06-03 07:09 | PC.NURSE ---
0634: Patient placed on monitor, timeout performed by LICHA. 20 ml of ropivicaine injected for left shoulder block using unltrsound guidance. Image obtained for documentation. Patient tolereated well.
--- NOTE | 2025-06-03 08:25 | PM.OP ---
Operative Report Date of procedure: June 03, 2025 Surgeon: Raghav Godinez MD Procedure: Preoperative diagnosis: Internal derangement of the left shoulder Postoperative diagnosis: Degenerative tearing anterior labrum, hypertrophic synovium, hypertrophic bursa, acromial impingement. Procedure: Diagnostic left shoulder arthroscopy with labral debridement, partial synovectomy, bursectomy, acromioplasty. Surgeon: Raghav Godinez MD Hemodialysis Technician: JOEL Cr's assistance was necessary for positioning of the patient, assistance during the procedure, wound closure, dressing placement, transfer the patient to the PACU Anesthesia: General With preoperative scalene block EBL: None Indications: By close a 54-year-old white male who presented with debilitating left shoulder pain. He has previous been worked up at the [place] [facility] and MRI had been obtained. The MRI was reviewed by myself demonstrating degenerative changes of the anterior labrum. Also partial tear of the rotator cuff. There is also impingement of the acromion and AC joint onto the rotator cuff. Therefore at this time having failed all conservative measures patient was offered a diagnostic shoulder arthroscopy with all indicated procedures. We discussed labral debridement versus repair as well as rotator cuff repair and acromioplasty. All risk benefits treatment alternatives were discussed and patient was agreeable to this at this time. Procedure: After obtaining consent patient had preoperative skin block ministered in preop holding area. Patient was then taken to the operating room placed in the op table supine position general anesthetic administered. Once good anesthesia achieved patient was placed up in the beachchair position and the left shoulder and arm were prepped and draped usual fashion. After surgical timeout standard posterior portal was made with #11 blade and camera cast placed through the posterior aspect of the shoulder in the glenohumeral joint line. Anterior working portal was also placed just inferior to the clavicle at the same region. Exploration of the joint demonstrated degenerative tearing of the anterior labrum however no pull off of the labrum from the glenoid. Biceps tendon is in good repair. Evaluation of the rotator cuff demonstrated good fixation of the supraspinatus which is only a mild amount of fraying but no gross signs of rotator cuff tear. Mechanical shaver was used to do a partial labral debridement of the anteriorly area. No other abnormalities of the labrum were identified. Articular surfaces were in good repair. Some hypertrophic synovium was removed from the shoulder also. Camera was then repositioned in the subacromial space where hypertrophic bursa was identified. Thermal probe was used to debride some of this as well as control any bleeding. Anterior lateral incision was also made to help clear this area. Using mechanical shaver and thermal probe bursectomy was undertaken. Once this was done it was evident that the acromion was impinging on the rotator cuff. There is no tear in the rotator cuff identified. Subsequently using a mechanical bur acromioplasty was done to decompress the subacromial region. Once this was adequately done shoulders washed with copious amounts of sterile irrigation. All cannulas removed. Wounds were closed with 3-0 Prolene interrupted sutures. Wounds were dressed with Xeroform gauze, sterile gauze dressing, ABDs, and adhesive tape. Patient was awakened transferred recovery room stable condition after sling had been placed on his arm.
--- NOTE | 2025-06-03 09:30 | ANE.PACU2 ---
Inpatient post-anesthesia follow up: Airway intact: Yes Vital signs: Temperature 98.4 F Pulse Rate 88 Respiratory Rate 17 Blood Pressure 136/88 Pulse Oximetry 95 Oxygen Delivery Me thod Room Air Oxygen Flow Rate 8 Fraction of Inspir ed Oxygen Hydration adequate: Yes Nausea and vomiting: No Pain level: 1 Mental status: Baseline
== END 2025-06-03 09:30 | disposition home or self-care (01) ==
PROVIDERS: PCP Emergency Medicine Emergency Medical Services; Visit Provider Orthopaedic Surgery
PROC: (CPT 23130; 2025-06-03 07:00)
PROC: (CPT 29805; 2025-06-03 07:00)
DX: M24.812 Other specific joint derangements of left shoulder, not elsewhere classified (principal); S43.432A Superior glenoid labrum lesion of left shoulder, initial encounter; X58.XXXA Exposure to other specified factors, initial encounter; M67.212 Synovial hypertrophy, not elsewhere classified, left shoulder; M75.42 Impingement syndrome of left shoulder; K21.9 Gastro-esophageal reflux disease without esophagitis
CPT/HCPCS: 29820; 29826; J0690; J1100; J2250; J2371; J2405; J2704; J2795; J3010; J3490; J7030; J9999

== ENCOUNTER → 2025-06-18 10:06 | Outpatient (BNVA) | payer OTHER, SELFPAY | PROVIDERS: PCP Emergency Medicine Emergency Medical Services; Visit Provider Orthopaedic Surgery | DX: Z98.890 Other specified postprocedural states (principal) | CPT/HCPCS: 99024 ==

== ENCOUNTER → 2025-07-13 08:10 | Outpatient (BNVA) | payer OTHER, SELFPAY | PROVIDERS: PCP Family Medicine Geriatric Medicine; Visit Provider Orthopaedic Surgery | DX: Z98.890 Other specified postprocedural states (principal) | CPT/HCPCS: 99024 ==

== ENCOUNTER 2025-07-15 05:00 | Outpatient (RCR) | payer OTHER, SELFPAY | END 2025-08-14 23:59 | disposition home or self-care (01) | LOC: SPT 05:00 | PROVIDERS: Visit Provider Orthopaedic Surgery | DX: Z47.89 Encounter for other orthopedic aftercare (principal) | CPT/HCPCS: 97110; 97161 ==

== ENCOUNTER → 2025-08-10 08:15 | Outpatient (BNVA) | payer OTHER, SELFPAY | PROVIDERS: PCP Family Medicine Geriatric Medicine; Visit Provider Orthopaedic Surgery | DX: Z98.890 Other specified postprocedural states (principal) | CPT/HCPCS: 99024 ==

== ENCOUNTER 2025-08-15 05:00 | Outpatient (RCR) | payer OTHER, SELFPAY | END 2025-09-13 23:59 | disposition home or self-care (01) | LOC: SPT 05:00 | PROVIDERS: PCP Family Medicine Geriatric Medicine; Visit Provider Orthopaedic Surgery | DX: Z47.89 Encounter for other orthopedic aftercare (principal) | CPT/HCPCS: 97110 ==

== ENCOUNTER → 2025-08-24 15:34 | Outpatient (BNVA) | payer OTHER, SELFPAY | PROVIDERS: PCP Family Medicine Geriatric Medicine; Visit Provider Orthopaedic Surgery | DX: Z98.890 Other specified postprocedural states (principal); Z96.612 Presence of left artificial shoulder joint | CPT/HCPCS: 99024 ==

== ENCOUNTER → 2025-09-15 11:08 | Outpatient (BNVA) | payer OTHER, SELFPAY | PROVIDERS: PCP Family Medicine Geriatric Medicine; Visit Provider Orthopaedic Surgery | DX: Z98.890 Other specified postprocedural states (principal) | CPT/HCPCS: 99024 ==